=== PATIENT | male | born 1940 | race Caucasian/White ===

== ENCOUNTER → 2022-12-06 05:00 | Outpatient (REF) | payer MEDICARE, SELFPAY ==
[2022-12-06 09:21] LABS: Hematocrit 29.9 % (40-54); Hemoglobin 9.4 g/dL (13.0-16.5); Mean Corp Hgb Conc 31.4 g/dL (32-36); Mean Corpuscular Hgb 33.1 pg (27.0-32.0); Mean Corpuscular Volume 105.3 fL (80-94); Platelet Count 154 K/mm3 (150-450); RBC Distribution Width CV 15.1 % (11.6-14.6); RBC Distribution Width SD 57.4 fl (35.1-43.9); Red Blood Count 2.84 M/mm3 (4.6-6.2); White Blood Count 7.8 K/mm3 (4.4-11.0)
[2022-12-06 10:12] LABS: ALB/GLOB Ratio 1.2 RATIO (0.9-2.4); AST(SGOT) 9 U/L (15-37); Alanine Aminotransfer ALT/SGPT 23 U/L (16-61); Albumin, Serum 3.5 g/dL (3.2-5.0); Alkaline Phosphatase 96 U/L (45-117); Anion Gap 10 (5-15); BUN 67 mg/dL (7-18); BUN/Creat Ratio 8.7 RATIO (10-20); Calcium,Total 8.6 mg/dL (8.5-10.1); Chloride 96 mmol/L (98-107); Creatinine, Serum 7.67 mg/dL (0.70-1.30); EST Glomerular Filtration Rate 7 mL/min (>60); Est Glom Filt Rate - Afr Amer 9 mL/min (>60); Glucose 126 mg/dL (74-106); Potassium 4.9 mmol/L (3.5-5.1); Protein, Total 6.5 g/dL (6.4-8.2); Sodium Level 134 mmol/L (136-145)
== END ==
LOC: OLS.SW 05:00
PROVIDERS: Visit Provider Family Medicine
DX: E11.22 Type 2 diabetes mellitus with diabetic chronic kidney disease (principal); N18.6 End stage renal disease; D63.1 Anemia in chronic kidney disease
CPT/HCPCS: 36415; 80053; 85027

== ENCOUNTER → 2022-12-27 05:00 | Outpatient (REF) | payer MEDICARE, SELFPAY ==
[2022-12-27 09:44] LABS: Hematocrit 29.4 % (40-54); Hemoglobin 9.4 g/dL (13.0-16.5); Mean Corpuscular Hgb 33.6 pg (27.0-32.0); Mean Platelet Vol. 9.6 fl (6.2-12.0); Platelet Count 160 K/mm3 (150-450); RBC Distribution Width CV 14.6 % (11.6-14.6); RBC Distribution Width SD 56.4 fl (35.1-43.9); White Blood Count 7.7 K/mm3 (4.4-11.0)
[2022-12-27 10:15] LABS: ALB/GLOB Ratio 1.1 RATIO (0.9-2.4); AST(SGOT) 9 U/L (15-37); Alanine Aminotransfer ALT/SGPT 31 U/L (16-61); Albumin, Serum 3.5 g/dL (3.2-5.0); Alkaline Phosphatase 120 U/L (45-117); Anion Gap 13 (5-15); BUN 120 mg/dL (7-18); BUN/Creat Ratio 10.3 RATIO (10-20); Calcium,Total 9.3 mg/dL (8.5-10.1); Chloride 98 mmol/L (98-107); EST Glomerular Filtration Rate 4 mL/min (>60); Est Glom Filt Rate - Afr Amer 5 mL/min (>60); Globulin 3.1 g/dL (2.2-4.2); Glucose 129 mg/dL (74-106); Potassium 5.8 mmol/L (3.5-5.1); Protein, Total 6.6 g/dL (6.4-8.2); Sodium Level 135 mmol/L (136-145)
== END ==
LOC: OLS.SW 05:00
PROVIDERS: Visit Provider Family Medicine
DX: N18.6 End stage renal disease (principal)
CPT/HCPCS: 36415; 80053; 85027

== ENCOUNTER → 2023-01-17 | Outpatient (REF) | payer MEDICARE, SELFPAY ==
[2023-01-17 09:12] LABS: Hematocrit 30.6 % (40-54); Hemoglobin 10.1 g/dL (13.0-16.5); Mean Corpuscular Hgb 34.2 pg (27.0-32.0); Mean Corpuscular Volume 103.7 fL (80-94); Mean Platelet Vol. 9.9 fl (6.2-12.0); Platelet Count 130 K/mm3 (150-450); RBC Distribution Width CV 15.1 % (11.6-14.6); RBC Distribution Width SD 57.4 fl (35.1-43.9); Red Blood Count 2.95 M/mm3 (4.6-6.2)
[2023-01-17 10:00] LABS: ALB/GLOB Ratio 1.2 RATIO (0.9-2.4); AST(SGOT) 9 U/L (15-37); Alanine Aminotransfer ALT/SGPT 27 U/L (16-61); Albumin, Serum 3.5 g/dL (3.2-5.0); Alkaline Phosphatase 103 U/L (45-117); Anion Gap 10 (5-15); BUN 82 mg/dL (7-18); BUN/Creat Ratio 9.1 RATIO (10-20); Calcium,Total 9.1 mg/dL (8.5-10.1); Chloride 97 mmol/L (98-107); Creatinine, Serum 9.06 mg/dL (0.70-1.30); EST Glomerular Filtration Rate 6 mL/min (>60); Est Glom Filt Rate - Afr Amer 7 mL/min (>60); Glucose 88 mg/dL (74-106); Protein, Total 6.5 g/dL (6.4-8.2); Sodium Level 133 mmol/L (136-145)
== END ==
LOC: OLS.SW 07:35
PROVIDERS: Visit Provider Family Medicine
DX: E11.22 Type 2 diabetes mellitus with diabetic chronic kidney disease (principal); N18.6 End stage renal disease
CPT/HCPCS: 36415; 80053; 85027

== ENCOUNTER → 2023-02-07 | Outpatient (REF) | payer MEDICARE, SELFPAY ==
[2023-02-07 08:43] LABS: Hematocrit 33.3 % (40-54); Hemoglobin 10.9 g/dL (13.0-16.5); Mean Corp Hgb Conc 32.7 g/dL (32-36); Mean Corpuscular Hgb 33.7 pg (27.0-32.0); Mean Corpuscular Volume 103.1 fL (80-94); Mean Platelet Vol. 9.5 fl (6.2-12.0); Platelet Count 140 K/mm3 (150-450); RBC Distribution Width CV 13.5 % (11.6-14.6); RBC Distribution Width SD 52.1 fl (35.1-43.9); Red Blood Count 3.23 M/mm3 (4.6-6.2); White Blood Count 8.2 K/mm3 (4.4-11.0)
[2023-02-07 09:09] LABS: ALB/GLOB Ratio 1.1 RATIO (0.9-2.4); AST(SGOT) 11 U/L (15-37); Alanine Aminotransfer ALT/SGPT 29 U/L (16-61); Albumin, Serum 3.6 g/dL (3.2-5.0); Alkaline Phosphatase 109 U/L (45-117); Anion Gap 8 (5-15); BUN 65 mg/dL (7-18); BUN/Creat Ratio 8.1 RATIO (10-20); Calcium,Total 10.1 mg/dL (8.5-10.1); Chloride 96 mmol/L (98-107); EST Glomerular Filtration Rate 7 mL/min (>60); Est Glom Filt Rate - Afr Amer 8 mL/min (>60); Globulin 3.2 g/dL (2.2-4.2); Glucose 80 mg/dL (74-106); Potassium 4.2 mmol/L (3.5-5.1); Protein, Total 6.8 g/dL (6.4-8.2); Sodium Level 135 mmol/L (136-145)
== END ==
LOC: OLS.SW 05:00
PROVIDERS: Visit Provider Family Medicine
DX: Z79.899 Other long term (current) drug therapy (principal)
CPT/HCPCS: 36415; 80053; 85027

== ENCOUNTER → 2023-02-14 | Outpatient (REF) | payer MEDICARE, SELFPAY ==
[2023-02-14 08:44] LABS: Hemoglobin A1c 4.9 % (3.8-5.6)
== END ==
LOC: OLS.SW 05:00
PROVIDERS: Visit Provider Family Medicine
DX: E11.9 Type 2 diabetes mellitus without complications (principal)
CPT/HCPCS: 36415; 83036

== ENCOUNTER → 2023-03-01 | Outpatient (REF) | payer MEDICARE, SELFPAY ==
[2023-03-01 10:42] LABS: Hematocrit 33.6 % (40-54); Hemoglobin 10.8 g/dL (13.0-16.5); Mean Corp Hgb Conc 32.1 g/dL (32-36); Mean Corpuscular Hgb 33.4 pg (27.0-32.0); Mean Platelet Vol. 9.6 fl (6.2-12.0); Platelet Count 133 K/mm3 (150-450); RBC Distribution Width CV 13.9 % (11.6-14.6); RBC Distribution Width SD 53.1 fl (35.1-43.9); Red Blood Count 3.23 M/mm3 (4.6-6.2); White Blood Count 7.1 K/mm3 (4.4-11.0)
[2023-03-01 10:59] LABS: ALB/GLOB Ratio 1.3 RATIO (0.9-2.4); AST(SGOT) 10 U/L (15-37); Alanine Aminotransfer ALT/SGPT 23 U/L (16-61); Albumin, Serum 3.6 g/dL (3.2-5.0); Alkaline Phosphatase 96 U/L (45-117); Anion Gap 11 (5-15); BUN 54 mg/dL (7-18); BUN/Creat Ratio 7.6 RATIO (10-20); Calcium,Total 9.3 mg/dL (8.5-10.1); Chloride 97 mmol/L (98-107); Creatinine, Serum 7.12 mg/dL (0.70-1.30); EST Glomerular Filtration Rate 8 mL/min (>60); Est Glom Filt Rate - Afr Amer 10 mL/min (>60); Globulin 2.8 g/dL (2.2-4.2); Glucose 79 mg/dL (74-106); Potassium 4.4 mmol/L (3.5-5.1); Protein, Total 6.4 g/dL (6.4-8.2); Sodium Level 136 mmol/L (136-145)
== END ==
LOC: OLS.SW 05:00
PROVIDERS: Visit Provider Family Medicine
DX: E11.9 Type 2 diabetes mellitus without complications (principal); Z99.2 Dependence on renal dialysis
CPT/HCPCS: 36415; 80053; 85027

== ENCOUNTER → 2023-03-01 | Outpatient (CLI) | payer MEDICARE, SELFPAY ==
--- NOTE | 2023-03-01 13:36 | ART_ITS ---
Reason For Study: PVD Procedure A bilateral lower extremity continuous wave Doppler with analog waveform analysis and ankle brachial indexes. Left Segmental Pressures Left brachial= 131mmHg. Left posterior tibial artery = 140mmHg. Left dorsalis pedis artery = >254mmHg. Left digit = 70 mmHg. The left dorsalis pedis waveforms are monophasic. The left posterior tibial artery waveforms are biphasic. Right Segmental Pressures Right brachial= 128mmHg. Right calf = 131mmHg. Right posterior tibial artery = 72mmHg. Right dorsalis pedis artery = 99mmHg. Right digit = 38 mmHg. The right dorsalis pedis waveforms are monophasic. The right posterior tibial artery waveforms are monophasic. Indices The right ankle brachial index by the dorsalis pedis is 0.76. The right ankle brachial index by the posterior tibial artery is 0.55. The right digital-brachial index is 0.29. The left ankle brachial index by the dorsalis pedis is NC. The left ankle brachial index by the posterior tibial artery is 1.07. The left digital-brachial index is 0.53. VL/Lower Ext Art Exam w/o Exercis Interpretation Summary Right MERRICK 0.76, moderate arterial insufficiency. Doppler/PVR waveforms and segm ental pressures reveal infrapopliteal disease Left MERRICK 1.07, normal. Doppler/PVR waveforms of the left leg normal at rest. TB I diminished, pedal/digit disease vs spasm Ordering Physician: Pete Cardozo Referring Physician: Gurpreet Prajapati Performed By: Mary Ulrich RVT
== END | disposition home or self-care (01) ==
LOC: CVS 13:34
PROVIDERS: PCP Family Medicine; Referring Provider Podiatrist; Visit Provider Podiatrist
DX: I73.9 Peripheral vascular disease, unspecified (principal)
CPT/HCPCS: 93923; 93924

== ENCOUNTER → 2023-03-02 | Outpatient (REF) | payer MEDICARE, SELFPAY ==
[2023-03-02 09:00] LABS: Hematocrit 32.1 % (40-54); Hemoglobin 10.5 g/dL (13.0-16.5); Mean Corp Hgb Conc 32.7 g/dL (32-36); Mean Corpuscular Hgb 34.1 pg (27.0-32.0); Mean Corpuscular Volume 104.2 fL (80-94); Mean Platelet Vol. 9.5 fl (6.2-12.0); Platelet Count 132 K/mm3 (150-450); RBC Distribution Width SD 52.8 fl (35.1-43.9); Red Blood Count 3.08 M/mm3 (4.6-6.2); White Blood Count 6.9 K/mm3 (4.4-11.0)
[2023-03-02 09:32] LABS: ALB/GLOB Ratio 1.2 RATIO (0.9-2.4); AST(SGOT) 8 U/L (15-37); Alanine Aminotransfer ALT/SGPT 24 U/L (16-61); Albumin, Serum 3.6 g/dL (3.2-5.0); Alkaline Phosphatase 103 U/L (45-117); Anion Gap 9 (5-15); BUN 76 mg/dL (7-18); BUN/Creat Ratio 8.9 RATIO (10-20); Calcium,Total 9.3 mg/dL (8.5-10.1); Chloride 98 mmol/L (98-107); EST Glomerular Filtration Rate 6 mL/min (>60); Est Glom Filt Rate - Afr Amer 8 mL/min (>60); Glucose 78 mg/dL (74-106); Potassium 4.5 mmol/L (3.5-5.1); Protein, Total 6.6 g/dL (6.4-8.2); Sodium Level 135 mmol/L (136-145)
== END ==
LOC: OLS.SW 05:00
PROVIDERS: PCP Family Medicine; Visit Provider Family Medicine
DX: I10 Essential (primary) hypertension (principal)
CPT/HCPCS: 36415; 80053; 85027

== ENCOUNTER → 2023-03-21 | Outpatient (REF) | payer MEDICARE, SELFPAY ==
[2023-03-21 09:07] LABS: Hematocrit 29.4 % (40-54); Hemoglobin 9.5 g/dL (13.0-16.5); Mean Corp Hgb Conc 32.3 g/dL (32-36); Mean Corpuscular Hgb 34.1 pg (27.0-32.0); Mean Corpuscular Volume 105.4 fL (80-94); Mean Platelet Vol. 10.2 fl (6.2-12.0); Platelet Count 138 K/mm3 (150-450); RBC Distribution Width SD 53.9 fl (35.1-43.9); Red Blood Count 2.79 M/mm3 (4.6-6.2); White Blood Count 7.4 K/mm3 (4.4-11.0)
[2023-03-21 09:59] LABS: ALB/GLOB Ratio 1.1 RATIO (0.9-2.4); AST(SGOT) 6 U/L (15-37); Alanine Aminotransfer ALT/SGPT 21 U/L (16-61); Albumin, Serum 3.2 g/dL (3.2-5.0); Alkaline Phosphatase 100 U/L (45-117); Anion Gap 8 (5-15); BUN 64 mg/dL (7-18); BUN/Creat Ratio 8.2 RATIO (10-20); Calcium,Total 9.2 mg/dL (8.5-10.1); Chloride 97 mmol/L (98-107); Creatinine, Serum 7.82 mg/dL (0.70-1.30); EST Glomerular Filtration Rate 7 mL/min (>60); Est Glom Filt Rate - Afr Amer 9 mL/min (>60); Glucose 168 mg/dL (74-106); Potassium 4.4 mmol/L (3.5-5.1); Protein, Total 6.2 g/dL (6.4-8.2); Sodium Level 134 mmol/L (136-145)
== END ==
LOC: OLS.SW 05:00
PROVIDERS: PCP Family Medicine; Visit Provider Family Medicine
DX: D64.9 Anemia, unspecified (principal); J44.9 Chronic obstructive pulmonary disease, unspecified; E78.5 Hyperlipidemia, unspecified; E11.22 Type 2 diabetes mellitus with diabetic chronic kidney disease; N18.6 End stage renal disease; I25.10 Atherosclerotic heart disease of native coronary artery without angina pectoris
CPT/HCPCS: 36415; 80053; 85027

== ENCOUNTER → 2023-04-11 04:00 | Outpatient (REF) | payer MEDICARE, SELFPAY ==
[2023-04-11 08:51] LABS: Hematocrit 32.5 % (40-54); Hemoglobin 10.3 g/dL (13.0-16.5); Mean Corp Hgb Conc 31.7 g/dL (32-36); Mean Corpuscular Hgb 33.9 pg (27.0-32.0); Mean Corpuscular Volume 106.9 fL (80-94); Mean Platelet Vol. 9.7 fl (6.2-12.0); Platelet Count 140 K/mm3 (150-450); RBC Distribution Width SD 54.6 fl (35.1-43.9); Red Blood Count 3.04 M/mm3 (4.6-6.2); White Blood Count 6.3 K/mm3 (4.4-11.0)
[2023-04-11 09:22] LABS: ALB/GLOB Ratio 1.1 RATIO (0.9-2.4); AST(SGOT) 9 U/L (15-37); Alanine Aminotransfer ALT/SGPT 10 U/L (16-61); Albumin, Serum 3.5 g/dL (3.2-5.0); Alkaline Phosphatase 95 U/L (45-117); Anion Gap 11 (5-15); BUN 94 mg/dL (7-18); BUN/Creat Ratio 7.5 RATIO (10-20); Calcium,Total 9.2 mg/dL (8.5-10.1); Chloride 100 mmol/L (98-107); EST Glomerular Filtration Rate 4 mL/min (>60); Est Glom Filt Rate - Afr Amer 5 mL/min (>60); Globulin 3.1 g/dL (2.2-4.2); Glucose 65 mg/dL (74-106); Potassium 4.9 mmol/L (3.5-5.1); Protein, Total 6.6 g/dL (6.4-8.2); Sodium Level 136 mmol/L (136-145)
== END ==
LOC: OLS.SW 04:00
PROVIDERS: PCP Family Medicine; Visit Provider Family Medicine
DX: E11.22 Type 2 diabetes mellitus with diabetic chronic kidney disease; N18.6 End stage renal disease
CPT/HCPCS: 36415; 80053; 85027

== ENCOUNTER → 2023-05-02 | Outpatient (REF) | payer MEDICARE, SELFPAY ==
[2023-05-02 09:20] LABS: Hematocrit 33.1 % (40-54); Hemoglobin 10.8 g/dL (13.0-16.5); Mean Corp Hgb Conc 32.6 g/dL (32-36); Mean Corpuscular Hgb 35.2 pg (27.0-32.0); Mean Corpuscular Volume 107.8 fL (80-94); Mean Platelet Vol. 9.6 fl (6.2-12.0); Platelet Count 130 K/mm3 (150-450); RBC Distribution Width CV 15.9 % (11.6-14.6); RBC Distribution Width SD 61.9 fl (35.1-43.9); Red Blood Count 3.07 M/mm3 (4.6-6.2); White Blood Count 6.7 K/mm3 (4.4-11.0)
[2023-05-02 09:40] LABS: ALB/GLOB Ratio 1.2 RATIO (0.9-2.4); AST(SGOT) 9 U/L (15-37); Alanine Aminotransfer ALT/SGPT 21 U/L (16-61); Albumin, Serum 3.5 g/dL (3.2-5.0); Alkaline Phosphatase 88 U/L (45-117); Anion Gap 11 (5-15); BUN 68 mg/dL (7-18); BUN/Creat Ratio 8.1 RATIO (10-20); Calcium,Total 9.2 mg/dL (8.5-10.1); Chloride 98 mmol/L (98-107); Creatinine, Serum 8.44 mg/dL (0.70-1.30); EST Glomerular Filtration Rate 7 mL/min (>60); Est Glom Filt Rate - Afr Amer 8 mL/min (>60); Globulin 2.8 g/dL (2.2-4.2); Glucose 182 mg/dL (74-106); Potassium 4.2 mmol/L (3.5-5.1); Protein, Total 6.3 g/dL (6.4-8.2); Sodium Level 134 mmol/L (136-145)
== END ==
LOC: OLS.SW 06:25
PROVIDERS: PCP Family Medicine; Visit Provider Family Medicine
DX: J44.9 Chronic obstructive pulmonary disease, unspecified (principal); E11.9 Type 2 diabetes mellitus without complications
CPT/HCPCS: 36415; 80053; 85027

== ENCOUNTER → 2023-05-16 | Outpatient (REF) | payer MEDICARE, SELFPAY ==
[2023-05-16 09:12] LABS: Hemoglobin A1c 4.8 % (3.8-5.6)
== END ==
LOC: OLS.SW 05:00
PROVIDERS: PCP Family Medicine; Visit Provider Family Medicine
DX: E11.9 Type 2 diabetes mellitus without complications (principal)
CPT/HCPCS: 36415; 83036

== ENCOUNTER → 2023-05-23 | Outpatient (REF) | payer MEDICARE, SELFPAY ==
[2023-05-23 10:05] LABS: Hematocrit 32.4 % (40-54); Hemoglobin 10.7 g/dL (13.0-16.5); Mean Corpuscular Hgb 34.7 pg (27.0-32.0); Mean Corpuscular Volume 105.2 fL (80-94); Mean Platelet Vol. 10.2 fl (6.2-12.0); Platelet Count 142 K/mm3 (150-450); RBC Distribution Width CV 13.6 % (11.6-14.6); RBC Distribution Width SD 52.7 fl (35.1-43.9); Red Blood Count 3.08 M/mm3 (4.6-6.2); White Blood Count 7.2 K/mm3 (4.4-11.0)
[2023-05-23 10:56] LABS: ALB/GLOB Ratio 1.2 RATIO (0.9-2.4); AST(SGOT) 12 U/L (15-37); Alanine Aminotransfer ALT/SGPT 23 U/L (16-61); Albumin, Serum 3.6 g/dL (3.2-5.0); Alkaline Phosphatase 89 U/L (45-117); Anion Gap 6 (5-15); BUN 73 mg/dL (7-18); BUN/Creat Ratio 8.1 RATIO (10-20); Calcium,Total 9.3 mg/dL (8.5-10.1); Chloride 96 mmol/L (98-107); EST Glomerular Filtration Rate 6 mL/min (>60); Est Glom Filt Rate - Afr Amer 7 mL/min (>60); Glucose 70 mg/dL (74-106); Potassium 4.4 mmol/L (3.5-5.1); Protein, Total 6.6 g/dL (6.4-8.2); Sodium Level 131 mmol/L (136-145)
== END ==
LOC: OLS.SW 04:00
PROVIDERS: PCP Family Medicine; Referring Provider Family Medicine; Visit Provider Family Medicine
DX: D64.9 Anemia, unspecified (principal); E11.9 Type 2 diabetes mellitus without complications
CPT/HCPCS: 36415; 80053; 85027

== ENCOUNTER 2023-05-31 08:24 | Day surgery (SDC) | payer MEDICARE, SELFPAY ==
[2023-05-30 07:10] VITALS: BMI 26.0
--- NOTE | 2023-05-31 13:26 | PCM.OPRPT ---
Report of Operation Date of Procedure: 05/31/23 Pre-Operative Diagnosis: atherosclerosis with rest pain, right lower extremity Post-Operative Diagnosis: same Surgery/Procedure Performed:: aortogram, right lower extremity runoff Surgeon: Manfred Johnson Type of Anesthesia: Local and Sedation,Conscious Estimated Blood Loss (mL): 2 Description of Procedure: HPI: Patient is an 82-year-old male with symptoms consistent with ischemic nocturnal rest pain and abnormal noninvasive vascular studies. He does have end-stage renal disease and on dialysis but he does continue to make urine so he is taken for angiography in efforts to reduce contrast exposure and further identify location and degree of disease. By noninvasive studies is suggested is mostly infrapopliteal disease. He is taken now for elective angiogram. Description of procedure: Upon obtaining informed consent verification correct patient procedure site patient taken the Senior Software Architect was positioned prepped and draped in you sterile fashion. Time was performed consultation administered Versed and fentanyl. Skin overlying left common femoral artery was anesthetized 1% lidocaine the vessel accessed under ultrasound guidance with micropuncture needle wire. This extended from a puncture sheath through which injection iliofemoral angiogram was performed revealing satisfactory positioning no extravasation or dissection. Through the micropuncture sheath a Bentson wire advanced into the abdominal aorta and the micropuncture was exchanged out for a short 6 Gibraltarian sheath. Through this an Omni Flush catheter was advanced into the abdominal aorta and the digital traction open pelvic angiograms performed. This revealed remarkably slow contrast transit through aorta and iliac vessels that were of normal caliber with no significant atherosclerosis or stenosis. This also revealed highly tortuous external leg arteries distally bilaterally with a 360 degree loop of the right external iliac artery. For this anatomy was potentially prohibitive for contralateral access intervention however we did opt to obtain imaging to at least determine degree of disease. Using the Omni Flush catheter and Bentson wire we navigated to the contralateral iliac system. The Omni Flush catheter is then exchanged out for a glide catheter which was advanced over the wire and positioned in the distal external iliac artery. From this position sequential right lower extremity subtraction angiography was performed. Given the remarkably slow contrast transit it was difficult to obtain adequate imaging particularly further distal in the lower leg so using a Glidewire and the glide catheter we navigated into the superficial femoral artery and advance her catheter in the mid SFA. From this position further imaging of the infrapopliteal vessels was obtained. We had significant difficulty advancing given our glide wire and catheter due to the tortuosity in the iliac system. With this in addition to the distribution of disease mainly distal tibial without good reconstitution is felt that no endovascular treatment will be attempted today. Also in addition to his slow contrast transit and overall what appears to be poor cardiac pump function is felt that any endovascular mention may be high risk for acute failure and that potentially the situation could be worsened by efforts. The wire and catheter then withdrawn and a 6 Gibralt[place] minx deployed followed attempt to manage pressure with satisfactory stasis noted. The patient was taken to recovery for bedrest prior to discharge to the SNF facility. Radiographic rotation: Abdominal aorta normal caliber with no significant atherosclerosis or stenosis. Left common, external iliac, and internal iliac arteries widely patent with no significant atherosclerosis or stenosis. Significant tortuosity of the left distal external leg artery. Left common femoral artery patent with mild atherosclerosis. Right common, external, internal artery patent with no skin atherosclerosis or stenosis. Significant tortuosity external iliac artery. Right common femoral, profunda, superficial femoral arteries widely patent with no significant atherosclerosis or stenosis. Right popliteal artery widely patent atherosclerosis or stenosis. Right anterior tibial artery patent highly diseased for approximately 3 cm and abrupt occlusion with no reconstitution. Tibioperoneal trunk artery patent with no significant atherosclerosis or stenosis. Posterior tibial artery patent highly diseased for approximately 3 cm and abrupt occlusion with no reconstitution. Peroneal artery with 50% stenosis of the ostia followed by relatively normal caliber vessel for the distal two thirds of the lower leg. At the distal third of the leg the vessel appeared to occlude with a dense collateral network with no reconstitution of peroneal artery beyond. There is not a good feeling in the foot however this was difficult to fully assess if it was due to anatomic obstruction or just contrast timing given the poor contrast transit throughout the arterial system.
== END 2023-05-31 16:20 | disposition home or self-care (01) ==
LOC: CLSP 08:26
PROVIDERS: PCP Family Medicine; Referring Provider Surgery Trauma Surgery; Visit Provider Surgery Trauma Surgery
DX: I70.221 Atherosclerosis of native arteries of extremities with rest pain, right leg (principal); Z99.2 Dependence on renal dialysis; J44.9 Chronic obstructive pulmonary disease, unspecified; N18.6 End stage renal disease; I25.10 Atherosclerotic heart disease of native coronary artery without angina pectoris; E78.5 Hyperlipidemia, unspecified; G47.33 Obstructive sleep apnea (adult) (pediatric); G62.9 Polyneuropathy, unspecified
CPT/HCPCS: 36200; 36245; 75625; 75710; 76937; 99152; 99153; C1760; C1769; C1894; J7040; Q9967

== ENCOUNTER → 2023-06-02 | Outpatient (REF) | payer MEDICARE, SELFPAY ==
[2023-06-02 17:10] LABS: Hemoglobin 11.9 g/dL (13.0-16.5); Mean Corpuscular Hgb 34.6 pg (27.0-32.0); Mean Corpuscular Volume 101.7 fL (80-94); Mean Platelet Vol. 10.4 fl (6.2-12.0); Platelet Count 118 K/mm3 (150-450); RBC Distribution Width CV 13.6 % (11.6-14.6); RBC Distribution Width SD 51.4 fl (35.1-43.9); Red Blood Count 3.44 M/mm3 (4.6-6.2); White Blood Count 10.1 K/mm3 (4.4-11.0)
[2023-06-02 17:34] LABS: ALB/GLOB Ratio 0.9 RATIO (0.9-2.4); AST(SGOT) 26 U/L (15-37); Alanine Aminotransfer ALT/SGPT 33 U/L (16-61); Albumin, Serum 3.3 g/dL (3.2-5.0); Alkaline Phosphatase 90 U/L (45-117); Anion Gap 9 (5-15); BUN 44 mg/dL (7-18); BUN/Creat Ratio 8.5 RATIO (10-20); Calcium,Total 9.4 mg/dL (8.5-10.1); Chloride 93 mmol/L (98-107); Creatinine, Serum 5.15 mg/dL (0.70-1.30); EST Glomerular Filtration Rate 12 mL/min (>60); Est Glom Filt Rate - Afr Amer 14 mL/min (>60); Globulin 3.6 g/dL (2.2-4.2); Glucose 130 mg/dL (74-106); Potassium 3.6 mmol/L (3.5-5.1); Protein, Total 6.9 g/dL (6.4-8.2); Sodium Level 133 mmol/L (136-145)
== END ==
LOC: OLS.SW 15:50
PROVIDERS: PCP Family Medicine; Visit Provider Family Medicine
DX: D64.9 Anemia, unspecified (principal); N18.6 End stage renal disease
CPT/HCPCS: 80053; 85027

== ENCOUNTER → 2023-06-05 | Outpatient (REF) | payer MEDICARE, SELFPAY ==
[2023-06-05 08:34] LABS: Lactic Acid 1.6 mmol/L (0.4-1.9)
== END ==
LOC: OLS.SW 05:00
PROVIDERS: PCP Family Medicine; Visit Provider Family Medicine
DX: D64.9 Anemia, unspecified (principal); N18.6 End stage renal disease
CPT/HCPCS: 36415; 82140; 83605

== ENCOUNTER → 2023-06-13 | Outpatient (REF) | payer MEDICARE, SELFPAY ==
[2023-06-13 08:31] LABS: Hematocrit 31.3 % (40-54); Hemoglobin 10.4 g/dL (13.0-16.5); Mean Corp Hgb Conc 33.2 g/dL (32-36); Mean Corpuscular Hgb 34.3 pg (27.0-32.0); Mean Corpuscular Volume 103.3 fL (80-94); Mean Platelet Vol. 9.3 fl (6.2-12.0); Platelet Count 158 K/mm3 (150-450); RBC Distribution Width CV 14.2 % (11.6-14.6); RBC Distribution Width SD 52.1 fl (35.1-43.9); Red Blood Count 3.03 M/mm3 (4.6-6.2); White Blood Count 8.3 K/mm3 (4.4-11.0)
[2023-06-13 10:47] LABS: ALB/GLOB Ratio 0.9 RATIO (0.9-2.4); AST(SGOT) 23 U/L (15-37); Alanine Aminotransfer ALT/SGPT 38 U/L (16-61); Albumin, Serum 3.1 g/dL (3.2-5.0); Alkaline Phosphatase 102 U/L (45-117); Anion Gap 10 (5-15); BUN 58 mg/dL (7-18); BUN/Creat Ratio 7.6 RATIO (10-20); Calcium,Total 9.2 mg/dL (8.5-10.1); Chloride 95 mmol/L (98-107); Creatinine, Serum 7.68 mg/dL (0.70-1.30); EST Glomerular Filtration Rate 7 mL/min (>60); Est Glom Filt Rate - Afr Amer 9 mL/min (>60); Globulin 3.4 g/dL (2.2-4.2); Glucose 113 mg/dL (74-106); Potassium 3.9 mmol/L (3.5-5.1); Protein, Total 6.5 g/dL (6.4-8.2); Sodium Level 132 mmol/L (136-145)
== END ==
LOC: OLS.SW 05:00
PROVIDERS: PCP Family Medicine; Visit Provider Family Medicine
DX: D64.9 Anemia, unspecified (principal); E11.9 Type 2 diabetes mellitus without complications
CPT/HCPCS: 80053; 85027

== ENCOUNTER 2023-06-17 14:07 | Inpatient (IN) | payer MEDICARE, SELFPAY ==
[2023-06-17] VITALS (17 sets, daily range): BP systolic 87–170; BP diastolic 41–73; PULSE 58–88; RESP 16–30; TEMP 36.8–39.6; O2SAT 92–100; BMI 26.6; BMI 25.6
--- NOTE | 2023-06-17 14:25 | EKG12_ITS ---
Test Reason : GENERAL Blood Pressure : / mmHG Vent. Rate : 084 BPM Atrial Rate : 000 BPM P-R Int : 000 ms QRS Dur : 124 ms QT Int : 404 ms P-R-T Axes : 000 182 -02 degrees QTc Int : 477 ms Atrial fibrillation Right bundle branch block Abnormal ECG Confirmed by Mukund Dawson ([id number]), script editor ZELALEM VELEZ ([id number]) on 06/20/2023 7:42:35 AM Referred By: Confirmed By:Mukund Dawson
--- NOTE | 2023-06-17 14:35 | EDS_ITS ---
HPI <Thania Kelsey RN - Last Filed: 06/17/23 15:47> History of Present Illness Chief Complaint: Alt LOC Informant: SNF Onset/Context/Timing Onset: - (Unknown) Current Severity: Moderate Maximum Severity: Moderate Narrative Narrative: Patient presents from [facility] for concerns of altered level of consciousness. Patient with history significant for atherosclerosis end-stage renal disease on dialysis, diabetes, encephalopathy, COPD, and hypertension. Per report from nursing facility, patient had aortogram on . Nurses aide reports patient has not been back to his baseline of ANO x 3 since procedure. However, nurse reports this is a new problem. Patient is febrile. Patient has DNR CCA. Prior similar symptoms: No Recent Illness/Hospitalization: No PFSH <Thania Kelsey RN - Last Filed: 06/17/23 15:47> [facility] Medical History Atherosclerotic heart disease of [place] coronary artery without angina pectoris COPD (chronic obstructive pulmonary disease) Encephalopathy Hepatitis A Hepatitis B Hiatal hernia with GERD without esophagitis Hyperlipidemia Muscle weakness TWYLA (obstructive sleep apnea) Rhabdomyolysis Secondary hyperparathyroidism Home Medications apixaban 2.5 mg tablet (Eliquis) 2.5 mg PO BID 02/23/23 [History Last Taken 05/30/23] atorvastatin 40 mg tablet 40 mg PO QHS 02/23/23 [History Last Taken Unknown] bumetanide 2 mg tablet 2 mg PO DAILY 02/23/23 [History Last Taken Unknown] calcium acetate(phosphat bind) 667 mg capsule 1,334 mg PO TID 02/23/23 [History Last Taken Unknown] glipizide 2.5 mg tablet 2.5 mg PO BID 02/23/23 [History Last Taken 05/30/23] isosorbide mononitrate 30 mg tablet,extended release 24 hr 30 mg PO DAILY 02/23/23 [History Last Taken Unknown] vitamin B complex-vitamin C-folic acid 0.8 mg tablet (Julieta-Luis) 1 tab PO DAILY 02/23/23 [History Last Taken Unknown] calcitriol 0.5 mcg capsule 0.5 mcg PO MOWEFR 04/20/23 [History Last Taken Unknown] acetaminophen 325 mg capsule 650 mg PO Q4H PRN fever 06/17/23 [History Last Taken Unknown] acetaminophen 650 mg rectal suppository 650 mg WV Q4H PRN fever 06/17/23 [History Last Taken Unknown] aluminum-mag hydroxide-simethicone 200 mg-200 mg-20 mg/5 mL oral susp (Antacid M) 30 ml PO Q4H PRN GI DISTRESS 06/17/23 [History Last Taken Unknown] bisacodyl 10 mg rectal suppository (Dulcolax (bisacodyl)) 10 mg WV DAILY PRN constipation 06/17/23 [History Last Taken Unknown] dextrose 40 % oral gel (Glucose Gel) 10 g PO Q15M PRN hypoglycemia 06/17/23 [History Last Taken Unknown] diclofenac sodium 1 % topical gel 2 g topical QHS PRN pain 06/17/23 [History Last Taken Unknown] gabapentin 100 mg capsule 100 mg PO BID NERVE PAIN 06/17/23 [History Last Taken Unknown] glucagon HCl 1 mg solution for injection (Glucagon (HCl) Emergency Kit) 1 mg IM PRN PRN hypoglycemia 06/17/23 [History Last Taken Unknown] guaifenesin 100 mg/5 mL oral liquid (Adult Tussin Chest Congestion) 200 mg PO Q4H PRN COUGH/CONGESTION 06/17/23 [History Last Taken Unknown] nystatin 100,000 unit/gram topical cream 1 applic topical Q8H PRN GROIN IRRITATION 06/17/23 [History Last Taken Unknown] ondansetron HCl 4 mg tablet 4 mg PO Q8H PRN nausea and vomiting 06/17/23 [History Last Taken Unknown] sodium phosphates 19 gram-7 gram/118 mL enema (Enema) 118 ml WV DAILY PRN constipation 06/17/23 [History Last Taken Unknown] tramadol 50 mg tablet 50 mg PO Q12H PRN TOE PAIN 06/17/23 [History Last Taken Unknown] Allergy/AdvReac Type Severity Reaction Status Date / Time No Known Allergies Allergy Verified 04/20/23 15:24 Family History no significant family his Social History housing: long-term Smoking Status: Never smoker ROS <Thania Kelsey RN - Last Filed: 06/17/23 15:47> ROS ED ROS Narrative Patient does open eyes to command. Does not follow commands or answer questions appropriately. Review of Systems ROS Unobtainable: due to mental status Constitutional Constitutional ED: Reports chills, fever(s) and sweats Respiratory/Chest Respiratory/Chest: Reports cough Integumentary Denies abscess, Abrasions or rash EXAM <Thania Kelsey RN - Last Filed: 06/17/23 15:47> Physical Exam Narrative Exam Narrative: Patient resting in bed with eyes closed. Opens eyes to name. Will not answer questions. Does not follow commands. Const Vital Signs: 06/17/23 14:09 06/17/23 14:18 06/17/23 14:25 Temperature 103.2 F H Temperature Source Axillary Pulse Rate 88 Respiratory Rate 22 H Blood Pressure 170/55 H Blood Pressure Mean 93 Pulse Ox 92 100 100 Oxygen Delivery Method Nasal Cannula Nasal Cannula Nasal Cannula Oxygen Flow Rate (L/min) 3 3 3 06/17/23 15:43 06/17/23 15:44 Temperature 102.7 F H Temperature Source Core Pulse Rate 61 Respiratory Rate 24 H Blood Pressure 106/45 L Blood Pressure Mean 65 Pulse Ox 97 Oxygen Delivery Method Nasal Cannula Oxygen Flow Rate (L/min) 5 Positive well nourished HEENT Reports dry mucous membranes Mouth ED: Yes dry mucous membranes Mouth: dry mucous membranes Eyes PERRL Neck no lymphadenopathy, supple and no JVD Chest Wall inspection of chest normal and palpation of chest normal Chest Narrative: Dual-lumen dialysis catheter to right upper chest with dressing dry and intact. No drainage noted. Resp normal respiratory effort and clear to auscultation bilaterally Auscultation: Negative for rales, rhonchi or wheezes Cardio regular rate, S1 normal heart sound and S2 normal heart sound GI normal to inspection, nondistended, normoactive bowel sounds and non-tender Auscultation: normoactive bowel sounds Palpation: soft Extremity normal to inspection Extremity Narrative: AV fistula to left upper arm with positive bruit and thrill. General Extremety ED: Negative for edema or tenderness General Extremity: Negative for edema Neuro oriented x3 Sensorium / Orientation: alert Motor Exam: strength 5/5 throughout Skin no rashes or lesions noted, no wounds and skin turgor normal <Dr. Khanh Frazier MD - Last Filed: 06/17/23 16:00> Physical Exam Const Vital Signs: 06/17/23 14:09 06/17/23 14:18 06/17/23 14:25 Temperature 103.2 F H Temperature Source Axillary Pulse Rate 88 Respiratory Rate 22 H Blood Pressure 170/55 H Blood Pressure Mean 93 Pulse Ox 92 100 100 Oxygen Delivery Method Nasal Cannula Nasal Cannula Nasal Cannula Oxygen Flow Rate (L/min) 3 3 3 06/17/23 15:43 06/17/23 15:44 Temperature 102.7 F H Temperature Source Core Pulse Rate 61 Respiratory Rate 24 H Blood Pressure 106/45 L Blood Pressure Mean 65 Pulse Ox 97 Oxygen Delivery Method Nasal Cannula Oxygen Flow Rate (L/min) 5 MDM <Thania Kelsey RN - Last Filed: 06/17/23 15:47> [facility] Narrative Medical decision making narrative: Patient placed on candy maker helper. IV line initiated. Labwork obtained to evaluate for leukocytosis, anemia, and electrolyte derangement. Chest x-ray obtained to evaluate for acute lung pathology, cardiac size, or mediastinal abnormality. Urinalysis obtained to evaluate for infection/hematuria. Blood cultures obtained. I have personally performed a face to face assessment of the patient and have reviewed the NANCY Note. I performed a substantive portion of the visit including all aspects of the following. My abreu findings include: History is 82-year-old male extensive past medical history presents from [facility] with decreased mental status and a fever of 103.2. Patient is unable to give any history. Does not follow commands and only barely responds. He is DNR Comfort Care arrest. Exam is [vital signs stable with temperature 103.2. Pulse ox 92% on 3 L. Hypoxia without the oxygen. HEENT exam eyes closed. Dry mucous membranes. Neck nontender no lymphadenopathy. Lungs clear to auscultation bilaterally. Heart rate about 90. No murmur. Chest wall and ribs nontender. Abdomen soft nondistended normal bowel sounds no peritoneal signs. Moving all 4 extremities. Nontender. No rashes. Back nontender. Neurologically he is awake. His eyes are closed. He does not answer any questions. He does not follow commands.] Medical Decision Making [elderly male from a long-term DNR Comfort Care arrest with a fever. Undergo a septic workup. Currently I will hold off on IV fluids till we see some more of his labs. He is dialysis patient has a dialysis catheter in his right chest that looks clean.] Other additions or changes: [None] Lab Data Labs: Laboratory Results - last 24 hr 06/17/23 06/17/23 14:22 14:53 WBC 16.3 H RBC 3.23 L Hgb 10.8 L Hct 34.0 L MCV 105.3 H MCH 33.4 H MCHC 31.8 L RDW Std Deviation 55.7 H RDW Coeff of Chloe 14.6 Plt Count 136 L MPV 9.2 Immature Gran % (Auto) 1.200 H Neut % (Auto) 90.0 H Lymph % (Auto) 2.8 L [place] % (Auto) 5.7 Eos % (Auto) 0.0 Baso % (Auto) 0.3 Absolute Neuts (auto) 14.6 H Absolute Lymphs (auto) 0.46 L Nucleated RBC % 0 PT 15.1 H INR 1.2 APTT 33.1 Sodium 134 L Potassium 5.0 Chloride 97 L Carbon Dioxide 30.0 Anion Gap 7 BUN 52 H Creatinine 6.98 H Estim Creat Clear Calc 8.96 Est GFR (MDRD) Af Amer 10 L Est GFR (MDRD) Non-Af 8 L BUN/Creatinine Ratio 7.4 L Glucose 77 Lactic Acid 1.8 Calcium 9.5 Total Bilirubin 0.90 AST 29 ALT 30 Alkaline Phosphatase 111 Total Protein 7.0 Albumin 3.4 Globulin 3.6 Albumin/Globulin Ratio 0.9 Urine Color Yellow Urine Clarity Clear Urine pH 7.0 Ur Specific [place] 1.005 Urine Protein 100 H Urine Glucose (UA) 100 H Urine Ketones Negative Urine Occult Blood 25 H Urine Nitrite Negative Urine Bilirubin Negative Urine Urobilinogen Normal Ur Leukocyte Esterase Negative Urine RBC 0-5 SEEN Urine WBC 0 SEEN Ur Squamous Epith Cells 0-5 SEEN Urine Bacteria 0 SEEN Urine Mucus 0 SEEN Radiography Diagnostic Testing: Clinical Impression(s) from Imaging Studies Chest X-Ray 06/17/23 14:57 IMPRESSION: Cardiac enlargement. No focal infiltrate. Electronically Signed: Thai Suarez MD at 15:32 EST , Management Discussion w/another healthcare provider: Other (Dr Frazier, ED Provider) Treatment and Re-Evaluation :: Lab work and imaging reviewed. CBC shows an elevated white count of 16.3 with 90% neutrophils, hemoglobin 10.8 which is improved from 06/13/2023 which was 10.4. Platelets are 136. Coagulation studies are unremarkable. Chemistry shows slightly elevated sodium at 134, potassium is normal at 5, BUN is 52 which is his baseline, creatinine is 6.98 which is also his baseline. Lactic acid is normal at 1.8. Urinalysis shows 100 of protein, 100 glucose, and 25 the blood. COVID, influenza, and RSV are all negative. Chest x-ray was negative for acute cardiopulmonary process. Patient was given 1 L normal saline bolus and 650 mg Tylenol rectally. Repeat temperature is 102.7. Patient continues with altered mental status. Hospitalist will be contacted for admission for fever of uncertain etiology, leukocytosis, and altered mental status. <Dr. Khanh Frazier MD - Last Filed: 06/17/23 16:00> [facility] Narrative Medical decision making narrative: Patient placed on candy maker helper. IV line initiated. Labwork obtained to evaluate for leukocytosis, anemia, and electrolyte derangement. Chest x-ray obtained to evaluate for acute lung pathology, cardiac size, or mediastinal abnormality. Urinalysis obtained to evaluate for infection/hematuria. Blood cu ltures obtained. I have personally performed a face to face assessment of the patient and have reviewed the NANCY Note. I performed a substantive portion of the visit including all aspects of the following. My abreu findings include: History is 82-year-old male extensive past medical history presents from [facility] with decreased mental status and a fever of 103.2. Patient is unable to give any history. Does not follow commands and only barely responds. He is DNR Comfort Care arrest. Exam is [vital signs stable with temperature 103.2. Pulse ox 92% on 3 L. Hypoxia without the oxygen. HEENT exam eyes closed. Dry mucous membranes. Neck nontender no lymphadenopathy. Lungs clear to auscultation bilaterally. Heart rate about 90. No murmur. Chest wall and ribs nontender. Abdomen soft nondistended normal bowel sounds no peritoneal signs. Moving all 4 extremities. Nontender. No rashes. Back nontender. Neurologically he is awake. His eyes are closed. He does not answer any questions. He does not follow commands.] Medical Decision Making [elderly male from a long-term DNR Comfort Care arrest with a fever. Undergo a septic workup. Currently I will hold off on IV fluids till we see some more of his labs. He is dialysis patient has a dialysis catheter in his right chest that looks clean.] Other additions or changes: [Repeat exam at 345 unchanged. Spoke to the hospitalist. Patient will be admitted to their service on telemetry. Started on IV Zosyn and vancomycin first dose ordered in the ER.] History & Record Review Discussion w/independent historian: Other (Patient febrile and very limited responsiveness.) Additional record(s) reviewed:: Prior inpatient record, Prior outpatient record, Prior ED visit and Prior labs Lab Data Attestation: I reviewed the patient's lab results. Lab results narrative: CBC shows an elevated white count of 16.3. H&H of 10.34. Platelets 136. No bands. 90% neutrophils. PT/INR 15 and 1. PTT 33. Electrolytes show sodium 134. Gap 7. BUN and creatinine of 52 and 6.98 consistent with his history of end-stage renal disease. Liver enzymes negative. UA negative. Chest x-ray negative. Labs: Laboratory Results - last 24 hr 06/17/23 06/17/23 14:22 14:53 WBC 16.3 H RBC 3.23 L Hgb 10.8 L Hct 34.0 L MCV 105.3 H MCH 33.4 H MCHC 31.8 L RDW Std Deviation 55.7 H RDW Coeff of Chloe 14.6 Plt Count 136 L MPV 9.2 Immature Gran % (Auto) 1.200 H Neut % (Auto) 90.0 H Lymph % (Auto) 2.8 L [place] % (Auto) 5.7 Eos % (Auto) 0.0 Baso % (Auto) 0.3 Absolute Neuts (auto) 14.6 H Absolute Lymphs (auto) 0.46 L Nucleated RBC % 0 PT 15.1 H INR 1.2 APTT 33.1 Sodium 134 L Potassium 5.0 Chloride 97 L Carbon Dioxide 30.0 Anion Gap 7 BUN 52 H Creatinine 6.98 H Estim Creat Clear Calc 8.96 Est GFR (MDRD) Af Amer 10 L Est GFR (MDRD) Non-Af 8 L BUN/Creatinine Ratio 7.4 L Glucose 77 Lactic Acid 1.8 Calcium 9.5 Total Bilirubin 0.90 AST 29 ALT 30 Alkaline Phosphatase 111 Total Protein 7.0 Albumin 3.4 Globulin 3.6 Albumin/Globulin Ratio 0.9 Urine Color Yellow Urine Clarity Clear Urine pH 7.0 Ur Specific [place] 1.005 Urine Protein 100 H Urine Glucose (UA) 100 H Urine Ketones Negative Urine Occult Blood 25 H Urine Nitrite Negative Urine Bilirubin Negative Urine Urobilinogen Normal Ur Leukocyte Esterase Negative Urine RBC 0-5 SEEN Urine WBC 0 SEEN Ur Squamous Epith Cells 0-5 SEEN Urine Bacteria 0 SEEN Urine Mucus 0 SEEN Radiography Chest X-Ray - ED: 1 View, Read by Radiologist, Normal, Heart, Lungs, Mediastinum, Bony Structures, No Acute Disease and Chronic Changes Diagnostic Testing: Clinical Impression(s) from Imaging Studies Chest X-Ray 06/17/23 14:57 IMPRESSION: Cardiac enlargement. No focal infiltrate. Electronically Signed: Thai Suarez MD at 15:32 EST Reading Location ID and State: [address] [place] [address] , Service support , Chest x-ray, portable, single view shows no acute abnormality. Normal cardiac silhouette. Prior sternotomy with wires. Right-sided Vas-Cath. Lungs are unremarkable. Rhythm Strip Rhythm Strip: Sinus Rhythm Rate: 84 Ectopy: None EKG Initial EKG: Attestation: I personally reviewed and interpreted this EKG as follows: Interpretation: Sinus Rhythm and No Acute Injury Pattern Comments: Normal sinus rhythm rate of 84 no acute signs of IN or ischemia. <Dr. Khanh Frazier MD - Last Filed: 06/17/23 16:00> Critical Care Time Critical Care Time: Yes Critical care time (excluding procedures): 30-74 minutes, Including time spent:, Discussing w/Patient &/or Family/Enterprise Application Architect, Discussing w/Consultants, Arranging Admission or Transfer, Performing Direct Patient Care at Bedside and - (35 minutes) Discharge Plan Dx/Rx/DC Orders Clinical Impression: Acute alteration in mental status, Fever, Leukocytosis, End stage chronic kidney disease, History of diabetes mellitus Disposition Disposition: [facility]
[2023-06-17 14:40] LABS: Absolute Lymphocyte Count 0.46 X10^3/uL (0.83-4.51); Absolute Neutrophil Count 14.6 X10^3/uL (2.0-7.7); Basophil# 0.05 X10^3/uL; Basophil% 0.3 % (0-1); Hemoglobin 10.8 g/dL (13.0-16.5); Lymphocyte # 0.46 X10^3/ul (0.83-4.51); Lymphocyte % 2.8 % (19-41); Mean Corp Hgb Conc 31.8 g/dL (32-36); Mean Corpuscular Hgb 33.4 pg (27.0-32.0); Mean Corpuscular Volume 105.3 fL (80-94); Mean Platelet Vol. 9.2 fl (6.2-12.0); Monocyte# 0.93 X10^3/uL; Monocyte% 5.7 % (0-10); NRBC Flagged by Analyzer 0 % (0-5); Neutrophil # 14.64 X10^3/uL (2.7-7.7); POSITIVE DIFFERENTIAL YES; Platelet Count 136 K/mm3 (150-450); RBC Distribution Width CV 14.6 % (11.6-14.6); RBC Distribution Width SD 55.7 fl (35.1-43.9); Red Blood Count 3.23 M/mm3 (4.6-6.2); White Blood Count 16.3 K/mm3 (4.4-11.0)
[2023-06-17] MEDS: Acetaminophen 650 MG Suppository RC ×2 (14:51→19:03)
--- NOTE | 2023-06-17 14:57 | RAD_ITS ---
STUDY: X-RAY CHEST REASON FOR EXAM: Male, 82 years old. Fever TECHNIQUE: Single AP portable view of the chest. COMPARISON: None. FINDINGS: Central catheter on the right extends to the right atrium. The lungs are clear and expanded. There is no demonstrated pleural abnormality. Sternal cerclage wires and vascular clips are present from a prior sternotomy and coronary artery bypass graft procedure (CABG). There is cardiac enlargement. Normal mediastinum and abdifatah. Normal visualized pulmonary arteries. There is atherosclerotic calcification of the aortic arch. There is demineralization of the osseous structures. Normal visualized ribs, clavicles, and shoulders. There is no demonstrated abnormality of the visualized soft tissue structures of the upper abdomen. RAD/Chest 1 View (Portable) IMPRESSION: Cardiac enlargement. No focal infiltrate. Electronically Signed: Thai Suarez MD at 15:32 EST ,
[2023-06-17 15:02] LABS: Bacteria 0 SEEN /hpf (None Seen); Mucous, Urine 0 SEEN /hpf (<or=2+); White Blood Cells 0 SEEN /hpf (0-5)
[2023-06-17 15:03] LABS: International Normalized Ratio 1.2; Prothrombin Time (Protime)PT. 15.1 SECONDS (11.7-14.9)
[2023-06-17 15:04] LABS: Partial Thromboplast Time 33.1 Seconds (24.1-36.2)
[2023-06-17 15:07] LABS: Color, Urine Yellow (Yellow); Glucose, Dipstick 100 mg/dl (Normal); Ketone-Dipstick Negative (Negative); Leukocyte Esterase-Dipstick Negative /ul (Negative); Nitrite-Dipstick Negative (Negative); Occult Blood-Urine 25 /ul (Negative); Protein-Dipstick 100 mg/dl (Negative); Specific Gravity, Urine 1.005 (1.002-1.030); Urine Bilirubin Dipstick Negative (Negative); Urine Clarity Clear (Clear); Urine Urobilinogen Normal (Normal)
[2023-06-17 15:07] LABS: Lactic Acid 1.8 mmol/L (0.4-1.9)
[2023-06-17 15:10] LABS: ALB/GLOB Ratio 0.9 RATIO (0.9-2.4); AST(SGOT) 29 U/L (15-37); Alanine Aminotransfer ALT/SGPT 30 U/L (16-61); Albumin, Serum 3.4 g/dL (3.2-5.0); Alkaline Phosphatase 111 U/L (45-117); Anion Gap 7 (5-15); BUN 52 mg/dL (7-18); BUN/Creat Ratio 7.4 RATIO (10-20); Calcium,Total 9.5 mg/dL (8.5-10.1); Chloride 97 mmol/L (98-107); Creatinine, Serum 6.98 mg/dL (0.70-1.30); EST Glomerular Filtration Rate 8 mL/min (>60); Est Glom Filt Rate - Afr Amer 10 mL/min (>60); Estimated Creatinine Clearance 8.96 ml/min; Globulin 3.6 g/dL (2.2-4.2); Glucose 77 mg/dL (74-106); Sodium Level 134 mmol/L (136-145)
[2023-06-17 15:14] LABS: Red Blood Cells-Urine 0-5 SEEN /hpf (0-5)
[2023-06-17 15:15] LABS: Squamous Epithelial Cells - UA 0-5 SEEN /hpf (0-5)
[2023-06-17] MEDS: 0.9% Normal Saline (1000mL) 1,000 ML 999 ML IV (15:42)
--- NOTE | 2023-06-17 16:04 | HP.PCM.HOS_ITS ---
HPI - General General Date of Service: 06/17/23 Chief Complaint: Altered level of consciousness, chills HPI Narrative LAILA HARLEY, is a 82 M who presents to the emergency room at [facility] from an extended care facility where he resides due to decreased mental status and chills. I am unable to obtain a history from the patient due to his confusion, patient appears lethargic but does not appear in any distress. Labs obtained in the emergency room showed an elevated white blood cell count at 16.3, hemoglobin was 10.8, creatinine was 6.98 and BUN was 52. Urinalysis and chest x-ray were unremarkable. Patient's temperature was 103.2. Patient will be admitted for elevated temperature and probable bacteremia, source is unclear at this time but could be his tunneled dialysis catheter. Patient will be given Zosyn and vancomycin, we will be seen by nephrology as he is a chronic dialysis patient. [facility]LY [facility] Medical History Atherosclerotic heart disease of [place] coronary artery without angina pectoris COPD (chronic obstructive pulmonary disease) Encephalopathy Hepatitis A Hepatitis B Hiatal hernia with GERD without esophagitis Hyperlipidemia Muscle weakness TWYLA (obstructive sleep apnea) Rhabdomyolysis Secondary hyperparathyroidism Home Medications apixaban 2.5 mg tablet (Eliquis) 2.5 mg PO BID 02/23/23 [History Last Taken 05/30/23] atorvastatin 40 mg tablet 40 mg PO QHS 02/23/23 [History Last Taken Unknown] bumetanide 2 mg tablet 2 mg PO DAILY 02/23/23 [History Last Taken Unknown] calcium acetate(phosphat bind) 667 mg capsule 1,334 mg PO TID 02/23/23 [History Last Taken Unknown] glipizide 2.5 mg tablet 2.5 mg PO BID 02/23/23 [History Last Taken 05/30/23] isosorbide mononitrate 30 mg tablet,extended release 24 hr 30 mg PO DAILY 02/23/23 [History Last Taken Unknown] vitamin B complex-vitamin C-folic acid 0.8 mg tablet (Julieta-Luis) 1 tab PO DAILY 02/23/23 [History Last Taken Unknown] calcitriol 0.5 mcg capsule 0.5 mcg PO MOWEFR 04/20/23 [History Last Taken Unknown] acetaminophen 325 mg capsule 650 mg PO Q4H PRN fever 06/17/23 [History Last Taken Unknown] acetaminophen 650 mg rectal suppository 650 mg VA Q4H PRN fever 06/17/23 [History Last Taken Unknown] aluminum-mag hydroxide-simethicone 200 mg-200 mg-20 mg/5 mL oral susp (Antacid M) 30 ml PO Q4H PRN GI DISTRESS 06/17/23 [History Last Taken Unknown] bisacodyl 10 mg rectal suppository (Dulcolax (bisacodyl)) 10 mg VA DAILY PRN constipation 06/17/23 [History Last Taken Unknown] dextrose 40 % oral gel (Glucose Gel) 10 g PO Q15M PRN hypoglycemia 06/17/23 [History Last Taken Unknown] diclofenac sodium 1 % topical gel 2 g topical QHS PRN pain 06/17/23 [History Last Taken Unknown] gabapentin 100 mg capsule 100 mg PO BID NERVE PAIN 06/17/23 [History Last Taken Unknown] glucagon HCl 1 mg solution for injection (Glucagon (HCl) Emergency Kit) 1 mg IM PRN PRN hypoglycemia 06/17/23 [History Last Taken Unknown] guaifenesin 100 mg/5 mL oral liquid (Adult Tussin Chest Congestion) 200 mg PO Q4H PRN COUGH/CONGESTION 06/17/23 [History Last Taken Unknown] nystatin 100,000 unit/gram topical cream 1 applic topical Q8H PRN GROIN IRRITATION 06/17/23 [History Last Taken Unknown] ondansetron HCl 4 mg tablet 4 mg PO Q8H PRN nausea and vomiting 06/17/23 [History Last Taken Unknown] sodium phosphates 19 gram-7 gram/118 mL enema (Enema) 118 ml VA DAILY PRN constipation 06/17/23 [History Last Taken Unknown] tramadol 50 mg tablet 50 mg PO Q12H PRN TOE PAIN 06/17/23 [History Last Taken Unknown] Allergy/AdvReac Type Severity Reaction Status Date / Time No Known Allergies Allergy Verified 04/20/23 15:24 Family History no significant family his Social History housing: alf Smoking Status: Never smoker ROS ROS Narrative Review of systems was not able to be obtained due to patient confusion and lethargy Vital Signs Vital Signs Vital Signs: 06/17/23 14:09 06/17/23 14:18 06/17/23 14:25 Temperature 103.2 F H Temperature Source Axillary Pulse Rate 88 Respiratory Rate 22 H Blood Pressure 170/55 H Blood Pressure Mean 93 Pulse Ox 92 100 100 Oxygen Delivery Method Nasal Cannula Nasal Cannula Nasal Cannula Oxygen Flow Rate (L/min) 3 3 3 06/17/23 15:43 06/17/23 15:44 Temperature 102.7 F H Temperature Source Core Pulse Rate 61 Respiratory Rate 24 H Blood Pressure 106/45 L Blood Pressure Mean 65 Pulse Ox 97 Oxygen Delivery Method Nasal Cannula Oxygen Flow Rate (L/min) 5 Weight Weight: 89.2 kg Body Mass Index (BMI) 26.6 Physical Exam Const no apparent distress and average body habitus Constitutional Narrative: Patient awakens to verbal stimulation but does not carry on conversation, he does say a few words. General Appearance: well kempt and well developed HEENT normocephalic, head/scalp atraumatic, hearing grossly normal bilaterally and moist oral mucous membranes Eyes PERRL, EOMs intact bilaterally and conjunctivae normal Neck supple, no JVD, thyroid normal and no carotid bruits General: trachea midline Resp normal respiratory effort, no retractions, no use of accessory muscles and clear to auscultation bilaterally Auscultation: Negative for rales, rhonchi or wheezes Cardio regular rate, regular rhythm, S1 normal heart sound, S2 normal heart sound, no murmurs, no rub and no gallops GI normal to inspection, nondistended, normoactive bowel sounds, soft to palpation, non-tender and non-distended Extremity no clubbing, cyanosis or edema Skin no rashes or lesions noted General Skin Exam: no breakdown Neuro CN's II-XII intact bilaterally and moves all extremities Neuro Narrative: Patient is lethargic, he awakens to verbal and painful stimuli but is confused Psych Psych Narrative: Patient is lethargic and confused Results Lab / Micro Data 06/17/23 14:22 06/17/23 14:22 Labs: Laboratory Results - last 24 hr 06/17/23 14:22: WBC 16.3 H, RBC 3.23 L, Hgb 10.8 L, Hct 34.0 L, MCV 105.3 H, MCH 33.4 H, MCHC 31.8 L, RDW Std Deviation 55.7 H, RDW Coeff of Chloe 14.6, Plt Count 136 L, MPV 9.2, Immature Gran % (Auto) 1.200 H, Neut % (Auto) 90.0 H, Lymph % (Auto) 2.8 L, [place] % (Auto) 5.7, Eos % (Auto) 0.0, Baso % (Auto) 0.3, Absolute Neuts (auto) 14.6 H, Absolute Lymphs (auto) 0.46 L, Nucleated RBC % 0, PT 15.1 H , INR 1.2, APTT 33.1, Sodium 134 L, Potassium 5.0, Chloride 97 L, Carbon Dioxide 30.0, Anion Gap 7, BUN 52 H, Creatinine 6.98 H, Estim Creat Clear Calc 8.96, Est GFR (MDRD) Af Amer 10 L, Est GFR (MDRD) Non-Af 8 L, BUN/Creatinine Ratio 7.4 L, Glucose 77, Lactic Acid 1.8, Calcium 9.5, Total Bilirubin 0.90, AST 29, ALT 30, Alkaline Phosphatase 111, Total Protein 7.0, Albumin 3.4, Globulin 3.6, Albumin/Globulin Ratio 0.9 06/17/23 14:53: Urine Color Yellow, Urine Clarity Clear, Urine pH 7.0, Ur Specific [place] 1.005, Urine Protein 100 H, Urine Glucose (UA) 100 H, Urine Ketones Negative, Urine Occult Blood 25 H, Urine Nitrite Negative, Urine Bilirubin Negative, Urine Urobilinogen Normal, Ur Leukocyte Esterase Negative, Urine RBC 0-5 SEEN, Urine WBC 0 SEEN, Ur Squamous Epith Cells 0-5 SEEN, Urine Bacteria 0 SEEN, Urine Mucus 0 SEEN Micro: Microbiology 06/17/23 14:22 Mucosa - Nose SARS-CoV-2, Influenza & RSV (PCR) - Final Rhythm Strip Rhythm Strip: Sinus Rhythm Rate: 84 Ectopy: None Imaging Radiology Impression Chest X-Ray 06/17/23 14:57 IMPRESSION: Cardiac enlargement. No focal infiltrate. Electronically Signed: Thai Suarez MD at 15:32 EST , Assessment & Plan Assessment/Plan (1) End stage chronic kidney disease: PLAN: Plan 1. Suspected bacteremia-patient will be admitted to PCU, IV Zosyn and vancomycin will be administered, patient will be seen in consultation by nephrology due to his end-stage renal disease, according to alf paperwork patient is a DNR CC arrest without intubation. Labs will be monitored. #2 metabolic encephalopathy secondary to multiple medical issues and probable bacteremia-complicates care, medical course, recovery, and prognosis, supportive care will be given #3 type 2 diabetes-fingerstick blood sugars will be monitored, sliding scale insulin will be used as needed #4 end-stage renal disease on dialysis-patient has a tunneled dialysis catheter over his right chest wall area, he will be seen in consultation by nephrology #5 chronic obstructive pulmonary disease-patient is currently on 2 L of oxygen in the emergency room, pulse ox will be monitored, oxygen will be adjusted as necessary #6 anemia of chronic renal disease-patient's hemoglobin today was 10.8, labs will be monitored #7 coronary artery disease-stable at this time, continue present medications Patient is a DNR CC arrest Total clinical time spent by myself addressing the patient's medical issues, reviewing all of his data, and collaborating with patient's care team: 75 m inutes Charges/Coding Visit Charges Inpatient E&M: 88345 Init Hosp L3
[2023-06-17] MEDS: Vancomycin HCl 2,000 MG in 0.9% Normal Saline (500mL Bag) 500 ML 250 MG IV (16:31)
[2023-06-17] MEDS: Piperacil/Tazobactam 4.5 GM in 0.9% Normal Saline (100mL MB+) 100 ML IV (16:31)
--- NOTE | 2023-06-17 17:41 | PHA.PHARE_ITS ---
Consult Antibiotic Management Pharmacy has been consulted to manage selected antibiotic: Vancomycin Type of Intervention Type of Consult: New start Suspected Infection Suspected Infection: Sepsis and Bacteremia Prior Doses of Antibiotics Prior Doses of Antibiotics Received/Current Regimen: Vancomycin 2000 mg IV x 1 given 06/17/23 @ 1631, patient is also piperacillin /tazobactam 3.375 grams Q12H Labs Labs: Sodium 134 mmol/L (136-145) L 06/17/23 14:22 Potassium 5.0 mmol/L (3.5-5.1) 06/17/23 14:22 Chloride 97 mmol/L (98-107) L 06/17/23 14:22 Carbon Dioxide 30.0 mmol/L (21.0-32.0) 06/17/23 14:22 Anion Gap 7 (5-15) 06/17/23 14:22 BUN 52 mg/dL (7-18) H 06/17/23 14:22 Creatinine 6.98 mg/dL (0.70-1.30) H 06/17/23 14:22 Est GFR (MDRD) Af Amer 10 mL/min (>60) L 06/17/23 14:22 Est GFR (MDRD) Non-Af 8 mL/min (>60) L 06/17/23 14:22 BUN/Creatinine Ratio 7.4 RATIO (10-20) L 06/17/23 14:22 Glucose 77 mg/dL (74-106) 06/17/23 14:22 Microbiology Microbiology: Microbiology 06/17/23 14:22 Mucosa - Nose SARS-CoV-2, Influenza & RSV (PCR) - Final Dosing Weight Weight used for dosin kg Estimated Creatinine Clearance Estimated Creatinine Clearance: hemodialys Goal Trough Goal Trough: 15-20 mcg/mL Pharmacy Plan for Drug Dosing Pharmacy Plan for Drug Dosing: Vancomycin 2000 mg IV x 1. Subsequently will plan for 750 mg IV after next HD session, with a trough prior to the HD session after the 750 mg IV dose. Pharmacy Service will continue to monitor and adjust dosing as required. Follow-Up Labs Follow-Up Labs: Trough: Vancomycin Date/Time Labs Ordered Labs to be done on [date and time ordered]: pending HD schedule
[2023-06-17] MEDS: 0.9% Normal Saline (1000mL) 1,000 ML 75 ML IV (17:51)
[2023-06-17] MEDS: Piperacil/Tazobactam 3.375 GM in 0.9% Normal Saline (50mL MB+) 50 ML IV (20:56)
[2023-06-17 22:21] LABS: Bedside Glucose 83 mg/dL (74-106)
[2023-06-18] VITALS (16 sets, daily range): BP systolic 94–116; BP diastolic 45–80; PULSE 51–63; RESP 16–26; TEMP 36.6–37.9; O2SAT 91–99
[2023-06-18] MEDS: Acetaminophen 325 MG Tablet 650 MG PO ×2 (02:22→22:29)
[2023-06-18 06:33] LABS: Bedside Glucose 88 mg/dL (74-106)
[2023-06-18 06:36] LABS: Absolute Lymphocyte Count 0.71 X10^3/uL (0.83-4.51); Absolute Neutrophil Count 13.4 X10^3/uL (2.0-7.7); Basophil# 0.05 X10^3/uL; Basophil% 0.3 % (0-1); Eosinophil# 0.02 X10^3/uL; Eosinophils% 0.1 % (0-5); Hematocrit 31.6 % (40-54); Hemoglobin 10.1 g/dL (13.0-16.5); Lymphocyte # 0.71 X10^3/ul (0.83-4.51); Lymphocyte % 4.6 % (19-41); Mean Corpuscular Hgb 34.1 pg (27.0-32.0); Mean Corpuscular Volume 106.8 fL (80-94); Mean Platelet Vol. 9.6 fl (6.2-12.0); Monocyte# 1.07 X10^3/uL; Monocyte% 6.9 % (0-10); NRBC Flagged by Analyzer 0 % (0-5); Neutrophil # 13.38 X10^3/uL (2.7-7.7); Neutrophil % 86.5 % (47-70); Platelet Count 109 K/mm3 (150-450); RBC Distribution Width SD 57.6 fl (35.1-43.9); Red Blood Count 2.96 M/mm3 (4.6-6.2); White Blood Count 15.5 K/mm3 (4.4-11.0)
[2023-06-18 06:59] LABS: ALB/GLOB Ratio 0.9 RATIO (0.9-2.4); AST(SGOT) 24 U/L (15-37); Alanine Aminotransfer ALT/SGPT 27 U/L (16-61); Albumin, Serum 2.7 g/dL (3.2-5.0); Alkaline Phosphatase 90 U/L (45-117); Anion Gap 7 (5-15); BUN 57 mg/dL (7-18); BUN/Creat Ratio 7.5 RATIO (10-20); Calcium,Total 8.6 mg/dL (8.5-10.1); Chloride 103 mmol/L (98-107); Creatinine, Serum 7.61 mg/dL (0.70-1.30); EST Glomerular Filtration Rate 7 mL/min (>60); Est Glom Filt Rate - Afr Amer 9 mL/min (>60); Estimated Creatinine Clearance 8.21 ml/min; Globulin 3.1 g/dL (2.2-4.2); Glucose 92 mg/dL (74-106); Phosphorus 4.6 mg/dL (2.5-4.9); Potassium 4.3 mmol/L (3.5-5.1); Protein, Total 5.8 g/dL (6.4-8.2); Sodium Level 135 mmol/L (136-145)
[2023-06-18] MEDS: 0.9% Normal Saline (1000mL) 1,000 ML 75 ML IV ×2 (07:06→19:52)
--- NOTE | 2023-06-18 08:04 | PCM.PN.HOSP ---
Reason for Visit Reason for Visit: Altered mentation Subjective Subjective Mr. Clifton is an 82-year-old male resident of [facility] who presented to the emergency department at [facility] on 06/17/2023 with concerns of multiple altered mentation. He has a complicated past medical history and had an aortogram done on 05/18/[address] Johnson[address] He was not able to participate in review of systems and there was no one with him to augment his history of present illness on admission. He evidently was having altered mental status and chills that was new onset and was appearing extremely lethargic. He did not appear uncomfortable. Vital signs on presentation showed a temperature of 103.2, heart rate was 88, blood pressure was 170/75 with a rene blood pressure of 87/41, respiratory rate was 22 and oxygen saturations were initially 92% on 3 L nasal cannula but if stabilized and have been between 95 and 100% on 2 L. His CBC on presentation showed a marked leukocytosis which was new compared to the lab on 06/13/2023. His white count was 16.3 and he had a left shift with 90% neutrophilia. He had mild thrombocytopenia with a platelet count of 136,000 and a chronic stable anemia with hemoglobin of 10.8. Coags were abnormal however the patient is on apixaban. His chemistry panel showed mild hyponatremia with a sodium of 134, had a elevated BUN and creatinine which was normal as he is on dialysis at baseline, his lactic acid was normal at 1.8 and his liver functions were unremarkable. Chest x-ray showed cardiac enlargement but no acute process and no localized infiltrate. COVID/flu/RSV was negative. Blood cultures and urine were obtained and are thus far showing growth. His blood culture shows gram-positive cocci in clusters in both bottles and his urine cultures pending. He is currently on vancomycin and Zosyn. His fever curve has been trending down and overnight his Tmax was 100.3. Current blood pressure is 104/48 and he is not tachycardic. He is stable on 2 L of oxygen. Patient sleeping soundly at the time my evaluation. Objective Data Objective Data Vital Signs: Vital Signs Temp Pulse Resp BP Pulse Ox O2 Del Method O2 Flow Rate 98.3 F 54 L 20 H 104/48 L 96 Nasal Cannula 2 06/18/23 07:00 06/18/23 07:00 06/18/23 07:00 06/18/23 07:00 06/18/23 07:00 06/18/23 07:00 06/18/23 07:00 Oxygen Flow Rate (L/min) 2 Oxygen Delivery Method Nasal Cannula Weight: 85.8 kg Body Mass Index (BMI) 25.6 Intake & Output: Intake and Output for Last 24 Hours 06/16/23 06/17/23 06/18/23 23:59 23:59 23:59 Intake Total 1640 / 1640 1200 / 1200 Output Total 75 / 475 700 / 700 Balance 1565 / 1165 500 / 500 Lab / Micro Data 06/18/23 05:35 06/18/23 05:35 Labs: Laboratory Results - last 24 hr 06/17/23 14:22: WBC 16.3 H, RBC 3.23 L, Hgb 10.8 L, Hct 34.0 L, MCV 105.3 H, MCH 33.4 H, MCHC 31.8 L, RDW Std Deviation 55.7 H, RDW Coeff of Chloe 14.6, Plt Count 136 L, MPV 9.2, Immature Gran % (Auto) 1.200 H, Neut % (Auto) 90.0 H, Lymph % (Auto) 2.8 L, [place] % (Auto) 5.7, Eos % (Auto) 0.0, Baso % (Auto) 0.3, Absolute Neuts (auto) 14.6 H, Absolute Lymphs (auto) 0.46 L, Nucleated RBC % 0, PT 15.1 H, INR 1.2, APTT 33.1, Sodium 134 L, Potassium 5.0, Chloride 97 L, Carbon Dioxide 30.0, Anion Gap 7, BUN 52 H, Creatinine 6.98 H, Estim Creat Clear Calc 8.96, Est GFR (MDRD) Af Amer 10 L, Est GFR (MDRD) Non-Af 8 L, BUN/Creatinine Ratio 7.4 L, Glucose 77, Lactic Acid 1.8, Calcium 9.5, Total Bilirubin 0.90, AST 29, ALT 30, Alkaline Phosphatase 111, Total Protein 7.0, Albumin 3.4, Globulin 3.6, Albumin/Globulin Ratio 0.9 06/17/23 14:53: Urine Color Yellow, Urine Clarity Clear, Urine pH 7.0, Ur Specific [place] 1.005, Urine Protein 100 H, Urine Glucose (UA) 100 H, Urine Ketones Negative, Urine Occult Blood 25 H, Urine Nitrite Negative, Urine Bilirubin Negative, Urine Urobilinogen Normal, Ur Leukocyte Esterase Negative, Urine RBC 0-5 SEEN, Urine WBC 0 SEEN, Ur Squamous Epith Cells 0-5 SEEN, Urine Bacteria 0 SEEN, Urine Mucus 0 SEEN 06/17/23 21:05: POC Glucose 83 06/18/23 05:35: WBC 15.5 H, RBC 2.96 L, Hgb 10.1 L, Hct 31.6 L, MCV 106.8 H, MCH 34.1 H, MCHC 32.0, RDW Std Deviation 57.6 H, RDW Coeff of Chloe 15.0 H, Plt Count 109 L, MPV 9.6, Immature Gran % (Auto) 1.600 H, Neut % (Auto) 86.5 H, Lymph % (Auto) 4.6 L, [place] % (Auto) 6.9, Eos % (Auto) 0.1, Baso % (Auto) 0.3, Absolute Neuts (auto) 13.4 H, Absolute Lymphs (auto) 0.71 L, Nucleated RBC % 0, Sodium 135 L, Potassium 4.3, Chloride 103, Carbon Dioxide 25.0, Anion Gap 7, BUN 57 H, Creatinine 7.61 H*, Estim Creat Clear Calc 8.21, Est GFR (MDRD) Af Amer 9 L, Est GFR (MDRD) Non-Af 7 L, BUN/Creatinine Ratio 7.5 L, Glucose 92, Calcium 8.6, Phosphorus 4.6, Total Bilirubin 1.20 H, AST 24, ALT 27, Alkaline Phosphatase 90, Total Protein 5.8 L, Albumin 2.7 L, Globulin 3.1, Albumin/Globulin Ratio 0.9 06/18/23 06:14: POC Glucose 88 Micro: Microbiology 06/17/23 14:34 Blood Culture (Wb) - Right Forearm Blood Culture - Preliminary 06/17/23 14:22 Blood Culture (Wb) - Anticubital Right Blood Culture - Preliminary 06/17/23 14:22 Mucosa - Nose SARS-CoV-2, Influenza & RSV (PCR) - Final Radiography Diagnostic Testing: Radiology Impression Chest X-Ray 06/17/23 14:57 IMPRESSION: Cardiac enlargement. No focal infiltrate. Electronically Signed: Thai Suarez MD at 15:32 EST , Rhythm Strip Rhythm Strip: Sinus Rhythm Rate: 84 Ectopy: None Physical Exam Const no apparent distress and average body habitus; Negative for healthy appearing Constitutional Narrative: Elderly, white male, sleeping soundly, currently appears comfortable and nontoxic HEENT head/scalp atraumatic Head and Scalp: normocephalic Resp normal respiratory effort, no retractions and no use of accessory muscles Resp Narrative: Diminished with few crackles at bases bilaterally, breathing appears comfortable Auscultation: crackles; Negative for rhonchi or wheezes Cardio regular rate, regular rhythm, S1 normal heart sound, S2 normal heart sound, no rub, no gallops and no clicks; Negative for no murmurs Cardio Narrative: Systolic murmur noted GI normal to inspection, nondistended, normoactive bowel sounds and soft to palpation Extremity Extremity Narrative: Post procedure bilateral lower extremity wounds, no cyanosis or clubbing, trace edema Skin Skin Narrative: Left upper extremity fistula with positive bruit and thrill, tunneled dialysis catheter right chest with no purulence expressed from the entrance site Neuro Neuro Narrative: Unable to assess as patient was sleeping soundly Assessment & Plan Assessment/Plan (1) Staphylococcus aureus bacteremia: (2) Thrombocytopenia: (3) Fever: PLAN: Plan Gram-positive cocci in clusters bacteremia--> highly suspect Staph aureus -Patient does not meet sepsis criteria per Sep 3 protocol as there was no identifiable endorgan damage -2 of 2 blood cultures already showing gram-positive cocci in clusters -Fever curve seems to be improving -White count is slightly better -MRSA PCR is pending -Suspect source is his line -Continue vancomycin and Zosyn for now -Repeat blood cultures in a.m. -Check surface echocardiogram and may need ABBI -Consult general surgery for removal of tunneled line -Consult infectious disease Toxic/metabolic encephalopathy -Likely related to the above -Should improve back to baseline with treatment of underlying disease Thrombocytopenia -Appears that his platelet counts fluctuate and are never that robust -Slight drop overnight however may be related to fluids and sepsis -Repeat CBC in a.m. Leukocytosis -See above Chronic anemia secondary to chronic renal disease -Hemoglobin is stable -Okay to continue apixaban -Monitor End-stage renal disease -HD dependent -Continue calcitriol -Continue phosphate binder -Nephrology consult--> discussed with Dr. Weber and we are okay to remove his tunneled dialysis catheter at this time as his fistula is working well CAD/HTN/HPL -Previous cardiac catheterization done at [facility] that showed left main coronary with minimal irregularities ramus intermedius with 95% stenosis after being occluded, left anterior descending artery with a long tubular 80% stenosis with calcification and a left circumflex artery with a mid segment which was calcified the proximal with a 40% stenosis and a medium caliber bifurcating lateral branch that has an ostial 90% stenosis. He also has a right coronary artery which had a 75% stenosis in the midsegment had a long tubular 60% stenosis -For this, CABG was considered but medical therapy was ultimately recommended -Continue atorvastatin -Hold Bumex -Hold isosorbide mononitrate Atrial fibrillation -Patient is not on any rate controlling medication -Continue home apixaban -Previous documentation indicates a pacemaker was recommended at some point but he declined and was recommended to avoid AV larry blocking agents due to bradycardic events PVD -Recent aortogram with right lower extremity runoff on 05/31/2023 -Continue outpatient follow-up with vascular medicine -Continue management for secondary risk factors Diabetic neuropathy -Continue home gabapentin History of DM-2 -Patient had a normal hemoglobin A1c on 05/16/2023 at 4.8 with minimal anemia -Would recommend discontinuation of his glipizide as an outpatient -No need for SSI or Accu-Cheks COPD -Patient does not appear to be on any inhalers at baseline -As needed albuterol -As needed guaifenesin DVT prophylaxis -continue home apixaban CODE STATUS -DNR CCA with no intubation per documentation from the nursing facility Charges/Coding Visit Charges Inpatient E&M: 06985 Subs Hosp L2
--- NOTE | 2023-06-18 08:09 | ECHOD_ITS ---
Reason For Study: Staph bacteremia Procedure This was a 2D Doppler, Color Flow transthoracic echocardiogram. Exam performed portable in ICU/CCU. Left Ventricle Normal LV size. Moderate concentric left ventricular hypertrophy. The left ventricular ejection fraction is 65 %. At least stage II diastolic dysfunction. Right Ventricle Normal right ventricle. Atria The left atrium is moderately enlarged. The right atrium is mildly enlarged. Mitral Valve Mild mitral annular calcification. Mild-Moderate (1-2+) mitral valve insufficiency. Tricuspid Valve Moderate (2+) tricuspid valve insufficiency. Right ventricular systolic pressure estimated to be 55 mmHg. Aortic Valve Trisinus/trileaflet aortic valve. Mild aortic stenosis. Trivial aortic valve insufficiency. Pulmonic Valve The pulmonic valve is not well visualized. Great Vessels Normal sized aortic root. Pericardium/Pleural No pericardial effusion. MMode/2D Measurements & Calculations LVIDd: 4.3 cm IVSd: 1.5 cm LVOT diam: 2.2 cm LVIDs: 2.8 cm LVPWd: 1.5 cm LVOT area: 3.7 cm2 RVDd: 4.1 cm FS: 33.9 % Ao root diam: 3.5 cm LAV(MOD-bp): 86.8 ml LVAd ap4: 29.4 cm2 LAV(MOD-bp) Indexed: 41.7 ml/m2 LVLd ap4: 8.0 cm LAV(MOD-sp2): 72.1 ml EDV(MOD-sp4): 89.1 ml LAV(MOD-sp4): 98.5 ml EDV(sp4-el): 91.4 ml LVAs ap4: 16.8 cm2 LVLs ap4: 7.2 cm ESV(MOD-sp4): 33.3 ml ESV(sp4-el): 33.3 ml EF(MOD-sp4): 62.7 % EF(sp4-el): 63.5 % LVAd ap2: 34.0 cm2 SV(MOD-sp4): 55.9 ml SV(MOD-sp2): 73.8 ml LVLd ap2: 8.7 cm EDV(MOD-sp2): 112.2 ml EDV(sp2-el): 113.6 ml LVAs ap2: 19.0 cm2 LVLs ap2: 8.0 cm ESV(MOD-sp2): 38.3 ml ESV(sp2-el): 38.7 ml EF(MOD-sp2): 65.8 % SV(sp4-el): 58.1 ml LA dimension(2D): 5.0 cm LA A4 area: 28.0 cm2 RA A4 area: 18.8 cm2 Doppler Measurements & Calculations MV E max miguel: 149.5 cm/sec Lat Peak E' Miguel: 9.8 cm/sec Med Peak E' Miguel: 6.4 cm/sec E/E' lat: 15.2 E/E' med: 23.3 MV V2 max: 165.6 cm/sec MV P1/2t max miguel: 163.2 cm/sec Ao V2 max: 231.4 cm/sec MV max P.0 mmHg MV P1/2t: 73.8 msec Ao max P.5 mmHg MV V2 mean: 79.9 cm/sec MV dec slope: 647.4 cm/sec2 Ao V2 mean: 150.3 cm/sec MV mean P.5 mmHg Ao mean P.3 mmHg MV V2 VTI: 32.2 cm MVA(P1/2t): 3.0 cm2 Ao V2 VTI: 46.7 cm MVA(VTI): 2.4 cm2 AV (velocity ratio): 0.44 HUYEN(I,D): 1.7 cm2 HUYEN(V,D): 1.6 cm2 LV V1 max: 102.0 cm/sec SV(LVOT): 77.1 ml PA V2 max: 108.1 cm/sec LV V1 max P.2 mmHg LV V1 mean P.0 mmHg LV V1 mean: 65.2 cm/sec LV V1 VTI: 20.6 cm TR max miguel: 319.9 cm/sec TR max P.9 mmHg ECHO/Echo Complete Interpretation Summary Moderate concentric left ventricular hypertrophy. The left ventricular ejection fraction is 65 %. At least stage II diastolic dysfunction The left atrium is moderately enlarged. The right atrium is mildly enlarged. Mild-Moderate (1-2+) mitral valve insufficiency. Moderate (2+) tricuspid valve insufficiency. Right ventricular systolic pressure estimated to be 55 mmHg. Mild aortic stenosis. No vegetations noted on this surface echocardiogram. Please consider ABBI for fu rther evaluation if clinically indicated. Ordering Physician: Christine Dallas Referring Physician: Gurpreet Prajapati Performed By: Manasa Barnett RDCS
[2023-06-18] MEDS: Calcium Acetate 667 MG Capsule 1334 MG PO ×3 (08:36→17:03)
[2023-06-18] MEDS: APIXABAN 2.5 MG TABLET (WCH) PO ×2 (08:36→19:55)
[2023-06-18] MEDS: Piperacil/Tazobactam 3.375 GM in 0.9% Normal Saline (50mL MB+) 50 ML IV ×2 (10:55→19:54)
[2023-06-18 11:57] LABS: Bedside Glucose 155 mg/dL (74-106)
--- NOTE | 2023-06-18 16:01 | CON.PCM.RE_ITS ---
Assessment & Plan Assessment/Plan (1) End stage chronic kidney disease: PLAN: On hemodialysis. Last dialysis was Monday. [facility]. Recently we have been able to use fistula with both needles. Currently has bacteremia. Right IJ dialysis catheter can be removed. Antibiotics as per primary. Discussed with hospitalist. HPI Consult Data Date of Consult: 06/18/23 HPI Narrative Reason for Consultation: ESRD HPI Narrative: LAILA HARLEY, is a 82 M who presents To the hospital with altered mental status, fever, chills. Nephrology on consultation in view of ESRD. [facility], 4 times a [facility]. Last dialysis was Monday. He has a left arm AV fistula which was initially not very mature hence he required a right IJ tunneled dialysis catheter. Recently we were able to use fistula with both needles. The original plan was to have catheter removed in the next 1 to 2 weeks. Came in with sepsis, gram-positive cocci bacteremia. No exit site infection. [facility] Medical History Atherosclerotic heart disease of [place] coronary artery without angina pectoris COPD (chronic obstructive pulmonary disease) Encephalopathy Hepatitis A Hepatitis B Hiatal hernia with GERD without esophagitis Hyperlipidemia Muscle weakness TWYLA (obstructive sleep apnea) Rhabdomyolysis Secondary hyperparathyroidism Home Medications apixaban 2.5 mg tablet (Eliquis) 2.5 mg PO BID 02/23/23 [History Last Taken 05/30/23] atorvastatin 40 mg tablet 40 mg PO QHS 02/23/23 [History Last Taken Unknown] bumetanide 2 mg tablet 2 mg PO DAILY 02/23/23 [History Last Taken Unknown] calcium acetate(phosphat bind) 667 mg capsule 1,334 mg PO TID 02/23/23 [History Last Taken Unknown] glipizide 2.5 mg tablet 2.5 mg PO BID 02/23/23 [History Last Taken 05/30/23] isosorbide mononitrate 30 mg tablet,extended release 24 hr 30 mg PO DAILY 02/23/23 [History Last Taken Unknown] vitamin B complex-vitamin C-folic acid 0.8 mg tablet (Julieta-Luis) 1 tab PO DAILY 02/23/23 [History Last Taken Unknown] calcitriol 0.5 mcg capsule 0.5 mcg PO MOWEFR 04/20/23 [History Last Taken Unknown] acetaminophen 325 mg capsule 650 mg PO Q4H PRN fever 06/17/23 [History Last Taken Unknown] acetaminophen 650 mg rectal suppository 650 mg [place] Q4H PRN fever 06/17/23 [History Last Taken Unknown] aluminum-mag hydroxide-simethicone 200 mg-200 mg-20 mg/5 mL oral susp (Antacid M) 30 ml PO Q4H PRN GI DISTRESS 06/17/23 [History Last Taken Unknown] bisacodyl 10 mg rectal suppository (Dulcolax (bisacodyl)) 10 mg [place] DAILY PRN constipation 06/17/23 [History Last Taken Unknown] dextrose 40 % oral gel (Glucose Gel) 10 g PO Q15M PRN hypoglycemia 06/17/23 [History Last Taken Unknown] diclofenac sodium 1 % topical gel 2 g topical QHS PRN pain 06/17/23 [History Last Taken Unknown] gabapentin 100 mg capsule 100 mg PO BID NERVE PAIN 06/17/23 [History Last Taken Unknown] glucagon HCl 1 mg solution for injection (Glucagon (HCl) Emergency Kit) 1 mg IM PRN PRN hypoglycemia 06/17/23 [History Last Taken Unknown] guaifenesin 100 mg/5 mL oral liquid (Adult Tussin Chest Congestion) 200 mg PO Q4H PRN COUGH/CONGESTION 06/17/23 [History Last Taken Unknown] nystatin 100,000 unit/gram topical cream 1 applic topical Q8H PRN GROIN IRRITATION 06/17/23 [History Last Taken Unknown] ondansetron HCl 4 mg tablet 4 mg PO Q8H PRN nausea and vomiting 06/17/23 [History Last Taken Unknown] sodium phosphates 19 gram-7 gram/118 mL enema (Enema) 118 ml [place] DAILY PRN constipation 06/17/23 [History Last Taken Unknown] tramadol 50 mg tablet 50 mg PO Q12H PRN TOE PAIN 06/17/23 [History Last Taken Unknown] Allergy/AdvReac Type Severity Reaction Status Date / Time No Known Allergies Allergy Verified 04/20/23 15:24 Family History no significant family his Social History [facility] Smoking Status: Never smoker ROS ROS Narrative Negative except above Physical Exam Narrative Alert awake oriented x 3 no obvious distress no pallor no icterus no JVD s1s2 no murmurs lungs clear abdomen soft no organomegaly no edema no cyanosis Lab / Micro Data 06/18/23 05:35 06/18/23 05:35 Labs: Laboratory Results - last 24 hr 06/17/23 21:05: POC Glucose 83 06/18/23 05:35: WBC 15.5 H, RBC 2.96 L, Hgb 10.1 L, Hct 31.6 L, MCV 106.8 H, MCH 34.1 H, MCHC 32.0, RDW Std Deviation 57.6 H, RDW Coeff of Chloe 15.0 H, Plt Count 109 L, MPV 9.6, Immature Gran % (Auto) 1.600 H, Neut % (Auto) 86.5 H, Lymph % (Auto) 4.6 L, [place] % (Auto) 6.9, Eos % (Auto) 0.1, Baso % (Auto) 0.3, Absolute Neuts (auto) 13.4 H, Absolute Lymphs (auto) 0.71 L, Nucleated RBC % 0, Sodium 135 L, Potassium 4.3, Chloride 103, Carbon Dioxide 25.0, Anion Gap 7, BUN 57 H, Creatinine 7.61 H*, Estim Creat Clear Calc 8.21, Est GFR (MDRD) Af Amer 9 L, Est GFR (MDRD) Non-Af 7 L, BUN/Creatinine Ratio 7.5 L, Glucose 92, Calcium 8.6, Phosphorus 4.6, Total Bilirubin 1.20 H, AST 24, ALT 27, Alkaline Phosphatase 90, Total Protein 5.8 L, Albumin 2.7 L, Globulin 3.1, Albumin/Globulin Ratio 0.9 06/18/23 06:14: POC Glucose 88 06/18/23 11:01: POC Glucose 155 H Micro: Microbiology 06/17/23 14:22 Blood Culture (Wb) - Anticubital Right Bacteria Detection (P CR) - Final Staphylococcus aureus mecA Resistance Marker 06/17/23 14:22 Blood Culture (Wb) - Anticubital Right Blood Culture - Preliminary 06/17/23 14:34 Blood Culture (Wb) - Right Forearm Blood Culture - Preliminary 06/17/23 14:22 Mucosa - Nose SARS-CoV-2, Influenza & RSV (PCR) - Final Rhythm Strip Rhythm Strip: Sinus Rhythm Rate: 84 Ectopy: None
[2023-06-18 17:10] LABS: M R Staph aureus DNA By PCR Negative (Negative); Probe Check PASS; Specimen Processing Control PASS
[2023-06-18] MEDS: Atorvastatin Calcium 40 MG Tablet PO (19:55)
[2023-06-18] MEDS: Insulin Lispro 100 UNIT/ML INSULN.PEN SC (20:04)
[2023-06-18 20:19] LABS: Bedside Glucose 133 mg/dL (74-106)
[2023-06-18 20:19] LABS: Bedside Glucose 231 mg/dL (74-106)
[2023-06-18] MEDS: traMADol 50 MG Tablet PO (23:15)
[2023-06-19] VITALS (54 sets, daily range): BP systolic 88–227; BP diastolic 49–83; PULSE 38–83; RESP 12–24; TEMP 36.2–37.1; O2SAT 91–100; BMI 25.6
[2023-06-19] MEDS: Albumin Human 25% (100 mL) 25 GM/100 ML BAG IV ×2 (02:02→03:30)
[2023-06-19] MEDS: 0.9% Normal Saline (250mL Bag) 250 ML 999 ML IV (03:30)
--- NOTE | 2023-06-19 03:44 | PCM.HOSP.N ---
Hospitalist Note I was called at approximately 3 AM and informed patient was dropping his blood pressure in the 80 mm systolic range consistent with sepsis with septic shock. He has a known infected catheter for dialysis which was scheduled to be removed in the a.m. Now orders will be made to move patient to the ICU so he can start on Levophed drip to maintain his MAP greater than 65 mmHg. RN was updated with plan.
[2023-06-19] MEDS: Albuterol 2.5 MG/3 ML VIAL.NEB. INHALATION ×6 (03:45→22:58)
[2023-06-19 04:32] LABS: Absolute Lymphocyte Count 1.05 X10^3/uL (0.83-4.51); Absolute Neutrophil Count 5.5 X10^3/uL (2.0-7.7); Basophil# 0.02 X10^3/uL; Basophil% 0.3 % (0-1); Eosinophil# 0.07 X10^3/uL; Eosinophils% 0.9 % (0-5); Hematocrit 21.4 % (40-54); Hemoglobin 6.6 g/dL (13.0-16.5); Lymphocyte # 1.05 X10^3/ul (0.83-4.51); Lymphocyte % 14.2 % (19-41); Mean Corp Hgb Conc 30.8 g/dL (32-36); Mean Corpuscular Hgb 33.7 pg (27.0-32.0); Mean Corpuscular Volume 109.2 fL (80-94); Mean Platelet Vol. 9.3 fl (6.2-12.0); Monocyte# 0.73 X10^3/uL; Monocyte% 9.8 % (0-10); NRBC Flagged by Analyzer 0 % (0-5); Neutrophil % 74.1 % (47-70); POSITIVE COUNT YES; Platelet Count 71 K/mm3 (150-450); RBC Distribution Width CV 14.8 % (11.6-14.6); RBC Distribution Width SD 59.1 fl (35.1-43.9); Red Blood Count 1.96 M/mm3 (4.6-6.2); White Blood Count 7.4 K/mm3 (4.4-11.0)
[2023-06-19 04:38] LABS: Differential Indicated SCAN CRITERIA MET
[2023-06-19 04:53] LABS: AST(SGOT) 17 U/L (15-37); Alanine Aminotransfer ALT/SGPT 24 U/L (16-61); Albumin, Serum 2.8 g/dL (3.2-5.0); Alkaline Phosphatase 66 U/L (45-117); Anion Gap 10 (5-15); BUN 75 mg/dL (7-18); Calcium,Total 8.2 mg/dL (8.5-10.1); Chloride 103 mmol/L (98-107); EST Glomerular Filtration Rate 7 mL/min (>60); Est Glom Filt Rate - Afr Amer 8 mL/min (>60); Estimated Creatinine Clearance 7.53 ml/min; Globulin 2.9 g/dL (2.2-4.2); Glucose 103 mg/dL (74-106); Potassium 4.2 mmol/L (3.5-5.1); Protein, Total 5.7 g/dL (6.4-8.2); Sodium Level 136 mmol/L (136-145)
[2023-06-19 04:58] LABS: Thyroid Stim Hormone (TSH) 4.25 uIU/mL (0.358-3.74)
[2023-06-19] MEDS: Norepinephrine 8 MG in 0.9% Normal Saline (250mL Bag) 242 ML 9.40000000000000036 MG CONT INF (05:03)
[2023-06-19] MEDS: 0.9% Normal Saline (1000mL) 1,000 ML 75 ML IV ×2 (05:05→17:11)
[2023-06-19 05:08] LABS: Lactic Acid 0.7 mmol/L (0.4-1.9)
[2023-06-19 05:13] LABS: Troponin-I HS 297 pg/mL (3.0-78.0)
[2023-06-19 05:51] LABS: Platelet Estimate MOD DEC (ADEQ)
[2023-06-19 06:28] LABS: Phosphorus 5.7 mg/dL (2.5-4.9)
[2023-06-19 06:58] LABS: Troponin-I HS 222 pg/mL (3.0-78.0)
--- NOTE | 2023-06-19 07:37 | PCM.PN.HOSP ---
Reason for Visit Reason for Visit: Diagnoses Methicillin susceptible Staphylococcus aureus infection as the cause of diseases classified elsewhere (06/17/23) Thrombocytopenia, unspecified (06/17/23) End stage renal disease (06/17/23) Fever, unspecified (06/17/23) Bacteremia (06/17/23) Objective Data Objective Data Vital Signs: Vital Signs Temp Pulse Resp BP Pulse Ox O2 Del Method O2 Flow Rate 98.7 F 70 18 151/67 H 94 Nasal Cannula 2 06/19/23 06:00 06/19/23 07:17 06/19/23 07:17 06/19/23 06:00 06/19/23 07:17 06/19/23 07:17 06/19/23 07:17 Oxygen Flow Rate (L/min) 2 Oxygen Delivery Method Nasal Cannula Weight: 189 lb 2.506 oz Body Mass Index (BMI) 25.6 Intake & Output: Intake and Output for Last 24 Hours 06/17/23 06/18/23 06/19/23 23:59 23:59 23:59 Intake Total 1640 / 1640 3357.5 / 3357.5 1150.18 / 1150.18 Output Total 75 / 475 800 / 800 Balance 1565 / 1165 2557.5 / 2557.5 1150.18 / 1150.18 Lab / Micro Data 06/19/23 04:10 06/19/23 04:10 Labs: Laboratory Results - last 24 hr 06/18/23 11:01: POC Glucose 155 H 06/18/23 15:18: MRSA (PCR) Negative 06/18/23 17:02: POC Glucose 133 H 06/18/23 20:00: POC Glucose 231 H 06/19/23 04:10: WBC 7.4, RBC 1.96 L, Hgb 6.6 L, Hct 21.4 L, MCV 109.2 H, MCH 33.7 H, MCHC 30.8 L, RDW Std Deviation 59.1 H, RDW Coeff of Chloe 14.8 H, Plt Count 71 L, MPV 9.3, Immature Gran % (Auto) 0.700, Neut % (Auto) 74.1 H, Lymph % (Auto) 14.2 L, [place] % (Auto) 9.8, Eos % (Auto) 0.9, Baso % (Auto) 0.3, Absolute Neuts (auto) 5.5, Absolute Lymphs (auto) 1.05, Nucleated RBC % 0, Platelet Estimate MOD DEC, Sodium 136, Potassium 4.2, Chloride 103, Carbon Dioxide 23.0, Anion Gap 10, BUN 75 H, Creatinine 8.30 H*, Estim Creat Clear Calc 7.53, Est GFR (MDRD) Af Amer 8 L, Est GFR (MDRD) Non-Af 7 L, BUN/Creatinine Ratio 9.0 L, Glucose 103, Lactic Acid 0.7, Calcium 8.2 L, Phosphorus 5.7 H, Magnesium 2.0, Total Bilirubin 0.70, AST 17, ALT 24, Alkaline Phosphatase 66, Total Protein 5.7 L, Albumin 2.8 L, Globulin 2.9, Albumin/Globulin Ratio 1.0, TSH 4.25 H 06/19/23 04:23: Troponin I High Sens 297 H* 06/19/23 06:10: Troponin I High Sens 222 H* Micro: Microbiology 06/17/23 14:22 Blood Culture (Wb) - Anticubital Right Bacteria Detection (PCR) - Final Staphylococcus aureus mecA Resistance Marker 06/17/23 14:22 Blood Culture (Wb) - Anticubital Right Blood Culture - Preliminary 06/17/23 14:34 Blood Culture (Wb) - Right Forearm Blood Culture - Preliminary 06/17/23 14:22 Mucosa - Nose SARS-CoV-2, Influenza & RSV (PCR) - Final Rhythm Strip Rhythm Strip: Sinus Rhythm Rate: 84 Ectopy: None Physical Exam Narrative Seen and examined. Patient is fatigue, mild short of breath. Problem in sitting up from laying down position. On hemodialysis. Patient has severe anemia hemoglobin 6.6 and severe thrombocytopenia, platelet count 72,000. Physical exam General: Awake oriented x3, Cooperative HEENT: Atraumatic, PERRLA, EOMI, Normocephalic Oral: No Gingival or Mucosal Lesions/ Ulcerations Neck: Supple, No JVD, Negative Carotid Bruits Chest wall/Lungs: Air entry diminished in bilateral lung bases. Mild expiratory rhonchi Cardiovascular: Regular rate, Regular Rhythm, Normal S1, Normal S2, No M/G/R Abdomen: Bowel Sounds Present, Soft, Non Tender, Non-Distended : Has Palomo catheter in small yellowish urine in the bag. No renal angle tenderness. No suprapubic tenderness. Extremities: No edema, Capillary Refill Less than 3 Seconds Skin: No rashes, No breakdown Musculoskeletal: No Tenderness to Palpation of Joints or Extremities Neurological: Cranial nerves II-XII grossly intact, DTR 2+/4. No acute focal neurological deficit. Psych/Mental Status: Flat affect. Assessment & Plan Assessment/Plan (1) Staphylococcus aureus bacteremia: (2) Thrombocytopenia: (3) Fever: PLAN: Plan This is a 82-year-old gentleman admitted from [facility] with altered mental status and fever. Was admitted with suspected line infection. 1. Gram-positive cocci in clusters bacteremia--> due to MRSA -Patient does not meet sepsis criteria per Sep 3 protocol as there was no identifiable endorgan damage -2 of 2 blood cultures already showing gram-positive cocci in clusters -Fever curve seems to be improving -White count is slightly better -Suspect source is right-sided permacath -Initially on vancomycin and Zosyn but ID saw the patient and discontinued Zosyn. TTE showed no vegetation. Patient also has some new low back pain and MRI ordered. General surgery is following and plan to remove abdominal dialysis cath after 48 hours of discontinuation of Eliquis.Had last dose on 06/18/2023 at about 8 PM Toxic/metabolic encephalopathy -Likely related to the above -Should improve back to baseline with treatment of underlying disease Thrombocytopenia -Appears that his platelet counts fluctuate and are never that robust -Slight drop overnight however may be related to fluids and sepsis -Repeat CBC in a.m. Leukocytosis -See above Chronic anemia secondary to chronic renal disease -Hemoglobin is stable -Okay to continue apixaban -Monitor End-stage renal disease -HD dependent -Continue calcitriol -Continue phosphate binder -Nephrology consult--> discussed with Dr. Weber and we are okay to remove his tunneled dialysis catheter at this time as his fistula is working well CAD/HTN/HPL -Previous cardiac catheterization done at [facility] that showed left main coronary with minimal irregularities ramus intermedius with 95% stenosis after being occluded, left anterior descending artery with a long tubular 80% stenosis with calcification and a left circumflex artery with a mid segment which was calcified the proximal with a 40% stenosis and a medium caliber bifurcating lateral branch that has an ostial 90% stenosis. He also has a right coronary artery which had a 75% stenosis in the midsegment had a long tubular 60% stenosis -For this, CABG was considered but medical therapy was ultimately recommended -Continue atorvastatin -Hold Bumex -Hold isosorbide mononitrate Atrial fibrillation -Patient is not on any rate controlling medication -Continue home apixaban -Previous documentation indicates a pacemaker was recommended at some point but he declined and was recommended to avoid AV larry blocking agents due to bradycardic events PVD -Recent aortogram with right lower extremity runoff on 05/31/2023 -Continue outpatient follow-up with vascular medicine -Continue management for secondary risk factors Diabetic neuropathy -Continue home gabapentin History of DM-2 -Patient had a normal hemoglobin A1c on 05/16/2023 at 4.8 with minimal anemia -Would recommend discontinuation of his glipizide as an outpatient -No need for SSI or Accu-Cheks COPD -Patient does not appear to be on any inhalers at baseline -As needed albuterol -As needed guaifenesin DVT prophylaxis -continue home apixaban CODE STATUS -DNR CCA with no intubation per documentation from the nursing facility Charges/Coding Visit Charges Inpatient E&M: 50791 Subs Hosp L3
--- NOTE | 2023-06-19 08:33 | WOUNDNOTE ---
Was consulted on patient. no wounds noted. patient does have some dry skin to feet, but not bad. washed legs and feet with soap and water. pat dry. applied petroleum to the dry skin. no need for wound care at this time.
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
[2023-06-19] MEDS: Calcium Acetate 667 MG Capsule 1334 MG PO ×2 (09:46→17:01)
[2023-06-19] MEDS: Calcitriol 0.25 MCG Capsule 0.5 MCG PO (09:47)
[2023-06-19] MEDS: guaiFENesin 600 MG Tablet PO ×2 (09:51→21:13)
[2023-06-19] MEDS: Piperacil/Tazobactam 3.375 GM in 0.9% Normal Saline (50mL MB+) 50 ML IV (09:54)
[2023-06-19 10:37] LABS: Troponin-I HS 223 pg/mL (3.0-78.0)
[2023-06-19] MEDS: 0.9% Normal Saline 1,000 ML IV.SOLN. 1000 ML OPERA.SITE (11:40)
[2023-06-19] MEDS: PureFlow B 3K Dialysis Soln 1 BAG 6 BAG PF (11:41)
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
--- NOTE | 2023-06-19 12:26 | CASEMGMT ---
Addendum entered by Claudine Gamboa 06/19/23 12:42: Patient is currently private pay at [facility] and will need precert to return skilled. Claudine Gamboa, Discharge Planning Asst. Original Note: [place] Planning Updates sent to [facility] via [employer]. Asked if precert will be needed. Awaiting response. Claudine Gamboa, Discharge Planning Asst.
[2023-06-19 12:48] LABS: Bedside Glucose 100 mg/dL (74-106)
[2023-06-19] MEDS: Vancomycin HCl 750 MG in 0.9% Normal Saline (250mL Bag) 250 ML 250 MG IV (14:45)
--- NOTE | 2023-06-19 14:58 | CASEMGMT ---
Social Work SW placed phone call to pt's dgt Audrey Alicea. Audrey confirms discharge plan for pt to return to [facility] when ready for discharge. SW inquired about advance directives. Audrey states that a copy is on file at [facility]. Message sent to [facility] to check on advance directives there. If they do not have documents, SW can contact [facility]. Plan: [facility], precert will need if pt is to return MOY Ridley
[2023-06-19 15:59] LABS: Bedside Glucose 112 mg/dL (74-106)
--- NOTE | 2023-06-19 16:05 | CASEMGMT ---
Social Work SW spoke with [facility] and a copy of pts living will and health care POA naming his daughter Audrey Alicea was obtained and placed on pts chart. MOY Roldan
--- NOTE | 2023-06-19 16:11 | CON.PCM.ID_ITS ---
Assessment & Plan Assessment/Plan (1) MRSA bacteremia: PLAN: Fever and leukocytosis resolved. Repeat bcx pending. MRSA seen on pcr. HD cath removal planned. TTE showed no veg. Having some new low back pain, will order MRI. Cont vanc, will stop zosyn. Will follow, thank you (2) End stage chronic kidney disease: HPI Consult Data Date of Consult: 06/19/23 HPI Narrative Reason for Consultation: bacteremia HPI Narrative: LAILA HARLEY, is a 82 M with ESRD, presented from [facility] 06/16 with acute onset altered mental status, fever, chills. Admitted to icu, on vanc/zosyn. Feeling ok but c/o low back pain for past 2-3 days. No issues with HD cath. No n/v/d. No r ecent skin infections. Full ROS performed and neg except as noted above. [facility] Medical History Atherosclerotic heart disease of [place] coronary artery without angina pectoris COPD (chronic obstructive pulmonary disease) Encephalopathy Hepatitis A Hepatitis B Hiatal hernia with GERD without esophagitis Hyperlipidemia Muscle weakness TWYLA (obstructive sleep apnea) Rhabdomyolysis Secondary hyperparathyroidism Home Medications apixaban 2.5 mg tablet (Eliquis) 2.5 mg PO BID 02/23/23 [History Last Taken 05/30/23] atorvastatin 40 mg tablet 40 mg PO QHS 02/23/23 [History Last Taken Unknown] bumetanide 2 mg tablet 2 mg PO DAILY 02/23/23 [History Last Taken Unknown] calcium acetate(phosphat bind) 667 mg capsule 1,334 mg PO TID 02/23/23 [History Last Taken Unknown] glipizide 2.5 mg tablet 2.5 mg PO BID 02/23/23 [History Last Taken 05/30/23] isosorbide mononitrate 30 mg tablet,extended release 24 hr 30 mg PO DAILY 02/23/23 [History Last Taken Unknown] vitamin B complex-vitamin C-folic acid 0.8 mg tablet (Julieta-Luis) 1 tab PO DAILY 02/23/23 [History Last Taken Unknown] calcitriol 0.5 mcg capsule 0.5 mcg PO MOWEFR 04/20/23 [History Last Taken Unknown] acetaminophen 325 mg capsule 650 mg PO Q4H PRN fever 06/17/23 [History Last Taken Unknown] acetaminophen 650 mg rectal suppository 650 mg IN Q4H PRN fever 06/17/23 [History Last Taken Unknown] aluminum-mag hydroxide-simethicone 200 mg-200 mg-20 mg/5 mL oral susp (Antacid M) 30 ml PO Q4H PRN GI DISTRESS 06/17/23 [History Last Taken Unknown] bisacodyl 10 mg rectal suppository (Dulcolax (bisacodyl)) 10 mg IN DAILY PRN constipation 06/17/23 [History Last Taken Unknown] dextrose 40 % oral gel (Glucose Gel) 10 g PO Q15M PRN hypoglycemia 06/17/23 [History Last Taken Unknown] diclofenac sodium 1 % topical gel 2 g topical QHS PRN pain 06/17/23 [History Last Taken Unknown] gabapentin 100 mg capsule 100 mg PO BID NERVE PAIN 06/17/23 [History Last Taken Unknown] glucagon HCl 1 mg solution for injection (Glucagon (HCl) Emergency Kit) 1 mg IM PRN PRN hypoglycemia 06/17/23 [History Last Taken Unknown] guaifenesin 100 mg/5 mL oral liquid (Adult Tussin Chest Congestion) 200 mg PO Q4H PRN COUGH/CONGESTION 06/17/23 [History Last Taken Unknown] nystatin 100,000 unit/gram topical cream 1 applic topical Q8H PRN GROIN IRRITATION 06/17/23 [History Last Taken Unknown] ondansetron HCl 4 mg tablet 4 mg PO Q8H PRN nausea and vomiting 06/17/23 [History Last Taken Unknown] sodium phosphates 19 gram-7 gram/118 mL enema (Enema) 118 ml IN DAILY PRN constipation 06/17/23 [History Last Taken Unknown] tramadol 50 mg tablet 50 mg PO Q12H PRN TOE PAIN 06/17/23 [History Last Taken Unknown] Allergy/AdvReac Type Severity Reaction Status Date / Time No Known Allergies Allergy Verified 04/20/23 15:24 Family History no significant family his Social History housing: halfway Smoking Status: Never smoker Physical Exam Const no apparent distress General Appearance: cooperative and lethargic HEENT normocephalic and head/scalp atraumatic Eyes PERRL and EOMs intact bilaterally Neck supple and No nodes Resp normal air movement and clear to auscultation bilaterally Cardio Rate: bradycardia Heart Sounds: murmur GI soft to palpation, non-tender and non-distended Extremity Extremity Narrative: No focal joint swelling/pain in arms or legs. Mild lumbar tenderness General Extremity: edema Skin no rashes or lesions noted Skin Narrative: R chest HD cath nontender. No splinter hemorrhages on hands or feet. Neuro CN's II-XII intact bilaterally Lab / Micro Data Attestation: I reviewed the patient's lab results. 06/19/23 04:10 06/19/23 04:10 Labs: Laboratory Results - last 24 hr 06/18/23 15:18: MRSA (PCR) Negative 06/18/23 17:02: POC Glucose 133 H 06/18/23 20:00: POC Glucose 231 H 06/19/23 04:10: WBC 7.4, RBC 1.96 L, Hgb 6.6 L, Hct 21.4 L, MCV 109.2 H, MCH 33.7 H, MCHC 30.8 L, RDW Std Deviation 59.1 H, RDW Coeff of Chloe 14.8 H, Plt Count 71 L, MPV 9.3, Immature Gran % (Auto) 0.700, Neut % (Auto) 74.1 H, Lymph % (Auto) 14.2 L, Major % (Auto) 9.8, Eos % (Auto) 0.9, Baso % (Auto) 0.3, Absolute Neuts (auto) 5.5, Absolute Lymphs (auto) 1.05, Nucleated RBC % 0, Platelet Estimate MOD DEC, Sodium 136, Potassium 4.2, Chloride 103, Carbon Dioxide 23.0, Anion Gap 10, BUN 75 H, Creatinine 8.30 H*, Estim Creat Clear Calc 7.53, Est GFR (MDRD) Af Amer 8 L, Est GFR (MDRD) Non-Af 7 L, BUN/Creatinine Ratio 9.0 L, Glucose 103, Lactic Acid 0.7, Calcium 8.2 L, Phosphorus 5.7 H, Magnesium 2.0, Total Bilirubin 0.70, AST 17, ALT 24, Alkaline Phosphatase 66, Total Protein 5.7 L, Albumin 2.8 L, Globulin 2.9, Albumin/Globulin Ratio 1.0, TSH 4.25 H 06/19/23 04:23: Troponin I High Sens 297 H* 06/19/23 06:10: Troponin I High Sens 222 H* 06/19/23 08:50: Blood Type O POSITIVE, Antibody Screen NEGATIVE, Crossmatch See Detail 06/19/23 09:44: POC Glucose 100 06/19/23 10:10: Troponin I High Sens 223 H* 06/19/23 12:17: POC Glucose 112 H Micro: Microbiology 06/19/23 15:00 Stool Clostridioides difficile (PCR) - Final 06/18/23 08:27 Blood Culture (Wb) - Right Wrist Blood Culture - Preliminary 06/17/23 14:53 Urine, Catheterized Urine Culture - Final Culture exhibits no growth. 06/17/23 14:34 Blood Culture (Wb) - Right Forearm Blood Culture - Preliminary Staphylococcus aureus 06/17/23 14:22 Blood Culture (Wb) - Anticubital Right Bacteria Detection (PCR) - Final Staphylococcus aureus mecA Resistance Marker 06/17/23 14:22 Blood Culture (Wb) - Anticubital Right Blood Culture - Preliminary Staphylococcus aureus Rhythm Strip Rhythm Strip: Sinus Rhythm Rate: 84 Ectopy: None Imaging Radiology Impression Echocardiogram 06/18/23 08:09 Interpretation Summary Moderate concentric left ventricular hypertrophy. The left ventricular ejection fraction is 65 %. At least stage II diastolic dysfunction The left atrium is moderately enlarged. The right atrium is mildly enlarged. Mild-Moderate (1-2+) mitral valve insufficiency. Moderate (2+) tricuspid valve insufficiency. Right ventricular systolic pressure estimated to be 55 mmHg. Mild aortic stenosis. No vegetations noted on this surface echocardiogram. Please consider ABBI for further evaluation if clinically indicated. Ordering Physician: Christine Dallas Referring Physician: Gurpreet Prajapati Performed By: Manasa Barnett RDCS
--- NOTE | 2023-06-19 16:15 | MRI_ITS ---
STUDY: MRI LUMBAR SPINE WITHOUT CONTRAST REASON FOR EXAM: Male, 82 years old. lower back pain, bacteremia -- noncontrast TECHNIQUE: Standardized fat and water weighted pulse sequences were obtained in the sagittal and axial planes. COMPARISON: None FINDINGS: T12-L1: Normal endplates. Normal disc height, hydration and morphology. Normal bilateral facet joints. Normal central canal and bilateral lateral recesses. Normal bilateral intervertebral neural foramina. Normal lumbar lordosis. There is no substantial scoliosis. Normal conus medullaris that terminates at T12 L1-2: Mild anterior endplate spurring.. Normal disc height, desiccation and minimal annular bulge. Normal bilateral facet joints. Normal central canal and bilateral lateral recesses. Normal bilateral intervertebral neural foramina. L2-3: Normal endplates. Normal disc height, desiccation and normal morphology. Mild facet arthropathy and thickening of ligamenta flava. Normal central canal and bilateral lateral recesses. Moderate bilateral neural foraminal stenosis L3-4: Normal endplates. Normal disc height, desiccation mild annular bulge.. Facet arthropathy and thickening of ligamenta flava. Normal central canal and bilateral lateral recesses. Moderate to severe bilateral neural foraminal stenosis exaggerated by shortened pedicles L4-5: Anterior endplate spurring Narrowed disc space and normal hydration of the disc with mild right foraminal osteophyte protrusion.. Facet arthropathy and thickening of ligamenta flava. Normal central canal and bilateral lateral recesses. Severe right neural foraminal stenosis and moderate narrowing on the left. L5-S1: Anterior endplate spurring. Grade 1 spondylolisthesis. Narrowed disc space with desiccation of the disc and minor bulging disc osteophyte complex with right foraminal disc protrusion and left paracentral disc/osteophyte protrusion compressing and displacing the descending left S1 nerve root.. Mild facet arthropathy.. Normal central canal and bilateral lateral recesses. Severe right neural foraminal stenosis and mild narrowing on the left Normal visualized sacral ala. Normal visualized paraspinous soft tissue structures. MRI/Spine Lumbar (Routine) IMPRESSION: No evidence for acute fracture or other significant bony pathology Spondylosis and multilevel spinal stenosis secondary to disc disease and bony hypertrophy Findings as above Electronically Signed: Zan Jacobs MD at 20:01 EST ,
[2023-06-19 17:15] LABS: Bedside Glucose 101 mg/dL (74-106)
[2023-06-19] MEDS: Insulin Lispro 100 UNIT/ML INSULN.PEN SC (21:13)
[2023-06-19] MEDS: Atorvastatin Calcium 40 MG Tablet PO (21:13)
[2023-06-19 21:41] LABS: Bedside Glucose 161 mg/dL (74-106)
[2023-06-20] VITALS (28 sets, daily range): BP systolic 107–136; BP diastolic 49–84; PULSE 51–511; RESP 13–25; TEMP 36–36.9; O2SAT 88–99; BMI 26.6
--- NOTE | 2023-06-20 01:12 | NURSING ---
This RN has continuously reminded patient to keep his oxygen on and his pulse ox on. Patient is refusing to wear oxygen and continuously removing ear pulse ox.
[2023-06-20] MEDS: Albuterol 2.5 MG/3 ML VIAL.NEB. INHALATION (02:08)
[2023-06-20] MEDS: 0.9% Normal Saline (1000mL) 1,000 ML 75 ML IV ×2 (06:31→19:51)
[2023-06-20] MEDS: 0.9% Saline Lock 10 ML Syringe IV (07:07)
[2023-06-20] MEDS: Calcium Acetate 667 MG Capsule 1334 MG PO ×3 (08:37→16:54)
[2023-06-20] MEDS: guaiFENesin 600 MG Tablet PO ×2 (08:37→20:53)
--- NOTE | 2023-06-20 11:19 | PN.SURG_ITS ---
Subjective Subjective Patient has no complaints. CBC was not drawn today?ordered as platelets were lower yesterday at 71. Objective Data Objective Data Vital Signs: Vital Signs Temp Pulse Resp BP Pulse Ox O2 Del Method O2 Flow Rate 96.8 F L 71 15 114/53 L 94 Nasal Cannula 2 06/20/23 08:40 06/20/23 08:57 06/20/23 08:57 06/20/23 08:57 06/20/23 09:04 06/20/23 09:04 06/20/23 09:04 Oxygen Flow Rate (L/min) 2 Oxygen Delivery Method Nasal Cannula Weight: 196 lb 13.965 oz Body Mass Index (BMI) 26.6 Intake & Output: Intake and Output for Last 24 Hours 06/18/23 06/19/23 06/20/23 23:59 23:59 23:59 Intake Total 3357.5 / 3357.5 2874.08 / 3074.08 1200 / 1200 Output Total 800 / 800 100 / 100 50 / 50 Balance 2557.5 / 2557.5 2774.08 / 2974.08 1150 / 1150 Lab / Micro Data 06/19/23 04:10 06/19/23 04:10 Labs: Laboratory Results - last 24 hr 06/19/23 08:50: Crossmatch See Detail 06/19/23 09:44: POC Glucose 100 06/19/23 12:17: POC Glucose 112 H 06/19/23 16:54: POC Glucose 101 06/19/23 21:09: POC Glucose 161 H Micro: Microbiology 06/18/23 08:27 Blood Culture (Wb) - Right Wrist Blood Culture - Final Staphylococcus aureus 06/18/23 08:33 Blood Culture (Wb) - Right Hand Blood Culture - Final Staphylococcus aureus 06/17/23 14:34 Blood Culture (Wb) - Right Forearm Blood Culture - Final Staphylococcus aureus 06/19/23 04:00 Blood Culture (Wb) - Right Hand Blood Culture - Preliminary No growth in 48 hours. 06/19/23 04:00 Blood Culture (Wb) - Right Wrist Blood Culture - Preliminary No growth in 48 hours. 06/17/23 14:22 Blood Culture (Wb) - Anticubital Right Bacteria Detection (PCR) - Final Staphylococcus aureus mecA Resistance Marker 06/17/23 14:22 Blood Culture (Wb) - Anticubital Right Blood Culture - Final Meth. resistant Staph. aureus 06/19/23 15:00 Stool Clostridioides difficile (PCR) - Final 06/17/23 14:53 Urine, Catheterized Urine Culture - Final Culture exhibits no growth. 06/17/23 14:22 Mucosa - Nose SARS-CoV-2, Influenza & RSV (PCR) - Final Radiography Diagnostic Testing: Radiology Impression Echocardiogram 06/18/23 08:09 Interpretation Summary Moderate concentric left ventricular hypertrophy. The left ventricular ejection fraction is 65 %. At least stage II diastolic dysfunction The left atrium is moderately enlarged. The right atrium is mildly enlarged. Mild-Moderate (1-2+) mitral valve insufficiency. Moderate (2+) tricuspid valve insufficiency. Right ventricular systolic pressure estimated to be 55 mmHg. Mild aortic stenosis. No vegetations noted on this surface echocardiogram. Please consider ABBI for further evaluation if clinically indicated. Ordering Physician: Christine Dallas Referring Physician: Gurpreet Prajapati Performed By: Manasa Barnett RDCS Lumbar Spine MRI 06/19/23 16:15 IMPRESSION: No evidence for acute fracture or other significant bony pathology Spondylosis and multilevel spinal stenosis secondary to disc disease and bony hypertrophy Findings as above Electronically Signed: Zan Jacobs MD at 20:01 EST Reading Location ID and State: [address] [place] [address] Tel , Service support , Rhythm Strip Rhythm Strip: Sinus Rhythm Rate: 84 Ectopy: None Physical Exam Const General Appearance: cooperative Neck Neck Narrative: Tunneled right IJ dialysis catheter in place no signs of infection Resp normal respiratory effort Cardio Rate: regular rate Bladder / Kidney Exam: catheter in place Skin no rashes or lesions noted and no jaundice Assessment & Plan Assessment/Plan (1) Staphylococcus aureus bacteremia: (2) Fever: (3) Thrombocytopenia: (4) End stage chronic kidney disease: PLAN: Plan Will plan to remove patient's tunneled dialysis catheter at bedside; however patient had his Eliquis Monday night will not remove till may be Monday- probably -- along with patient's platelets were 71 yesterday?ordered today we will continue to monitor. Continue antibiotics per ID Mitzy Owen M.D. Pager: [phone] [facility] [address] [place] [address], [facility], [address] [place] [address] Office: [phone] Charges/Coding Visit Charges Inpatient E&M: 54383 Subs Hosp L2
[2023-06-20 11:44] LABS: Absolute Lymphocyte Count 0.75 X10^3/uL (0.83-4.51); Absolute Neutrophil Count 5.8 X10^3/uL (2.0-7.7); Basophil# 0.04 X10^3/uL; Basophil% 0.6 % (0-1); Eosinophil# 0.11 X10^3/uL; Eosinophils% 1.5 % (0-5); Hematocrit 31.6 % (40-54); Hemoglobin 10.1 g/dL (13.0-16.5); Lymphocyte # 0.75 X10^3/ul (0.83-4.51); Lymphocyte % 10.4 % (19-41); Mean Corpuscular Hgb 32.9 pg (27.0-32.0); Mean Corpuscular Volume 102.9 fL (80-94); Mean Platelet Vol. 10.3 fl (6.2-12.0); Monocyte# 0.48 X10^3/uL; Monocyte% 6.7 % (0-10); NRBC Flagged by Analyzer 0 % (0-5); Neutrophil # 5.76 X10^3/uL (2.7-7.7); POSITIVE COUNT YES; POSITIVE MORPHOLOGY YES; Platelet Count 83 K/mm3 (150-450); RBC Distribution Width CV 17.7 % (11.6-14.6); RBC Distribution Width SD 66.9 fl (35.1-43.9); Red Blood Count 3.07 M/mm3 (4.6-6.2); White Blood Count 7.2 K/mm3 (4.4-11.0)
[2023-06-20 11:44] LABS: Bedside Glucose 117 mg/dL (74-106)
[2023-06-20 11:45] LABS: Differential Indicated SCAN CRITERIA MET
--- NOTE | 2023-06-20 12:12 | PN.HOSP_ITS ---
Reason for Visit Reason for Visit: Diagnoses Methicillin susceptible Staphylococcus aureus infection as the cause of diseases classified elsewhere (06/17/23) Methicillin resistant Staphylococcus aureus infection as the cause of diseases classified elsewhere (06/17/23) Thrombocytopenia, unspecified (06/17/23) End stage renal disease (06/17/23) Fever, unspecified (06/17/23) Bacteremia (06/17/23) Objective Data Objective Data Vital Signs: Vital Signs Temp Pulse Resp BP Pulse Ox O2 Del Method O2 Flow Rate 96.8 F L 71 15 114/53 L 94 Nasal Cannula 2 06/20/23 08:40 06/20/23 08:57 06/20/23 08:57 06/20/23 08:57 06/20/23 09:04 06/20/23 09:04 06/20/23 09:04 Oxygen Flow Rate (L/min) 2 Oxygen Delivery Method Nasal Cannula Weight: 196 lb 13.965 oz Body Mass Index (BMI) 26.6 Intake & Output: Intake and Output for Last 24 Hours 06/18/23 06/19/23 06/20/23 23:59 23:59 23:59 Intake Total 3357.5 / 3357.5 2874.08 / 3074.08 1200 / 1200 Output Total 800 / 800 100 / 100 50 / 50 Balance 2557.5 / 2557.5 2774.08 / 2974.08 1150 / 1150 Lab / Micro Data 06/20/23 11:25 06/19/23 04:10 Labs: Laboratory Results - last 24 hr 06/19/23 08:50: Crossmatch See Detail 06/19/23 09:44: POC Glucose 100 06/19/23 12:17: POC Glucose 112 H 06/19/23 16:54: POC Glucose 101 06/19/23 21:09: POC Glucose 161 H 06/20/23 11:24: POC Glucose 117 H 06/20/23 11:25: WBC 7.2, RBC 3.07 L, Hgb 10.1 L, Hct 31.6 L, MCV 102.9 H D, MCH 32.9 H, MCHC 32.0, RDW Std Deviation 66.9 H, RDW Coeff of Chloe 17.7 H, Plt Count 83 L, MPV 10.3, Immature Gran % (Auto) 0.800, Neut % (Auto) 80.0 H, Lymph % (Auto) 10.4 L, [place] % (Auto) 6.7, Eos % (Auto) 1.5, Baso % (Auto) 0.6, Absolute Neuts (auto) 5.8, Absolute Lymphs (auto) 0.75 L, Nucleated RBC % 0 Micro: Microbiology 06/18/23 08:27 Blood Culture (Wb) - Right Wrist Blood Culture - Final Staphylococcus aureus 06/18/23 08:33 Blood Culture (Wb) - Right Hand Blood Culture - Final Staphylococcus aureus 06/17/23 14:34 Blood Culture (Wb) - Right Forearm Blood Culture - Final Staphylococcus aureus 06/19/23 04:00 Blood Culture (Wb) - Right Hand Blood Culture - Preliminary No growth in 48 hours. 06/19/23 04:00 Blood Culture (Wb) - Right Wrist Blood Culture - Preliminary No growth in 48 hours. 06/17/23 14:22 Blood Culture (Wb) - Anticubital Right Bacteria Detection (PCR) - Final Staphylococcus aureus mecA Resistance Marker 06/17/23 14:22 Blood Culture (Wb) - Anticubital Right Blood Culture - Final Meth. resistant Staph. aureus 06/19/23 15:00 Stool Clostridioides difficile (PCR) - Final 06/17/23 14:53 Urine, Catheterized Urine Culture - Final Culture exhibits no growth. 06/17/23 14:22 Mucosa - Nose SARS-CoV-2, Influenza & RSV (PCR) - Final Radiography Diagnostic Testing: Radiology Impression Lumbar Spine MRI 06/19/23 16:15 IMPRESSION: No evidence for acute fracture or other significant bony pathology Spondylosis and multilevel spinal stenosis secondary to disc disease and bony hypertrophy Findings as above Electronically Signed: Zan Jacobs MD at 20:01 EST Reading Location ID and State: [facility] / [place] Tel , Service support , Rhythm Strip Rhythm Strip: Sinus Rhythm Rate: 84 Ectopy: None Physical Exam Narrative Seen and examined. Patient is fatigue, mild short of breath. Problem in sitting up from laying down position. On hemodialysis. Patient had PRBC transfusion, hemoglobin improved to 10.1/31%. Platelet count 83,000. Physical exam General: Awake oriented x3, Cooperative HEENT: Atraumatic, PERRLA, EOMI, Normocephalic Oral: No Gingival or Mucosal Lesions/ Ulcerations Neck: Supple, No JVD, Negative Carotid Bruits Chest wall/Lungs: Air entry diminished in bilateral lung bases. Inspiratory effort is decreased with weak cough reflex. Mild expiratory rhonchi Cardiovascular: Irregular rhythm, A-fib, Normal S1, Normal S2, No M/G/R Abdomen: Bowel Sounds Present, Soft, Non Tender, Non-Distended : On hemodialysis. Has Palomo catheter in small yellowish urine in the bag. No renal angle tenderness. No suprapubic tenderness. Extremities: No edema, Capillary Refill Less than 3 Seconds Skin: No rashes, No breakdown Musculoskeletal: No Tenderness to Palpation of Joints or Extremities Neurological: Cranial nerves II-XII grossly intact, DTR 2+/4. No acute focal neurological deficit. Psych/Mental Status: Flat affect. Assessment & Plan Assessment/Plan (1) Staphylococcus aureus bacteremia: (2) Thrombocytopenia: (3) Fever: PLAN: Plan This is a 82-year-old gentleman admitted from [facility] with altered mental status and fever. Was admitted with suspected line infect ion. 1. Gram-positive cocci in clusters bacteremia--> due to MRSA -Patient does not meet sepsis criteria per Sep 3 protocol as there was no identifiable endorgan damage -2 of 2 blood cultures already showing gram-positive cocci in clusters -Fever curve seems to be improving -White count is slightly better -Suspect source is right-sided permacath -Initially on vancomycin and Zosyn but ID saw the patient and discontinued Zosyn. TTE showed no vegetation. Patient also has some new low back pain and MRI ordered. General surgery is following and plan to remove abdominal dialysis cath after 48 hours of discontinuation of Eliquis.Had last dose on 06/18/2023 at about 8 PM 06/19: Last blood culture from 06/17 growing Staph aureus,, MRSA. Possible removal of tunneled venous catheter tomorrow as he will complete 48 hours of discontinuation of Eliquis. Hemoglobin and thrombocytopenia are better. Toxic/metabolic encephalopathy -Likely related to the above -Should improve back to baseline with treatment of underlying disease Thrombocytopenia -Appears that his platelet counts fluctuate and are never that robust -Slight drop overnight however may be related to fluids and sepsis 06/19: Repeat platelet count is 83,000. H&H 10.1/31%. Chronic anemia secondary to chronic renal disease -Hemoglobin is stable -Okay to continue apixaban Please see above End-stage renal disease -HD dependent -Continue calcitriol -Continue phosphate binder -Nephrology consult--> discussed with Dr. Weber and we are okay to remove his tunneled dialysis catheter at this time as his fistula is working well 06/19: Will need at least 48 hours for Eliquis to get metabolized from the body before the procedure. But his platelet counts are also low. CAD/HTN/HPL -Previous cardiac catheterization done at [facility] that showed left main coronary with minimal irregularities ramus intermedius with 95% stenosis after being occluded, left anterior descending artery with a long tubular 80% stenosis with calcification and a left circumflex artery with a mid segment which was calcified the proximal with a 40% stenosis and a medium caliber bifurcating lateral branch that has an ostial 90% stenosis. He also has a right coronary artery which had a 75% stenosis in the midsegment had a long tubular 60% stenosis -For this, CABG was considered but medical therapy was ultimately recommended -Continue atorvastatin -Hold Bumex -Hold isosorbide mononitrate Atrial fibrillation -Patient is not on any rate controlling medication -Continue home apixaban -Previous documentation indicates a pacemaker was recommended at some point but he declined and was recommended to avoid AV larry blocking agents due to bradycardic events PVD -Recent aortogram with right lower extremity runoff on 05/31/2023 -Continue outpatient follow-up with vascular medicine -Continue management for secondary risk factors Diabetic neuropathy -Continue home gabapentin History of DM-2 -Patient had a normal hemoglobin A1c on 05/16/2023 at 4.8 with minimal anemia -Would recommend discontinuation of his glipizide as an outpatient -No need for SSI or Accu-Cheks COPD -Patient does not appear to be on any inhalers at baseline -As needed albuterol -As needed guaifenesin DVT prophylaxis -continue home apixaban CODE STATUS -DNR CCA with no intubation per documentation from the nursing facility Charges/Coding Visit Charges Inpatient E&M: 66942 Subs Hosp L3
--- NOTE | 2023-06-20 12:22 | PN.RENAL_ITS ---
Subjective Subjective No new complaints. ID note reviewed. MRI spine ordered. Likely plan For catheter removal tomorrow Objective Data Objective Data Vital Signs: Vital Signs Temp Pulse Resp BP Pulse Ox O2 Del Method O2 Flow Rate 96.8 F L 71 15 114/53 L 94 Nasal Cannula 2 06/20/23 08:40 06/20/23 08:57 06/20/23 08:57 06/20/23 08:57 06/20/23 09:04 06/20/23 09:04 06/20/23 09:04 Oxygen Flow Rate (L/min) 2 Oxygen Delivery Method Nasal Cannula Weight: 89.3 kg Body Mass Index (BMI) 26.6 Intake & Output: Intake and Output for Last 24 Hours 06/18/23 06/19/23 06/20/23 23:59 23:59 23:59 Intake Total 3357.5 / 3357.5 2874.08 / 3074.08 1200 / 1200 Output Total 800 / 800 100 / 100 50 / 50 Balance 2557.5 / 2557.5 2774.08 / 2974.08 1150 / 1150 Lab / Micro Data 06/20/23 11:25 06/19/23 04:10 Labs: Laboratory Results - last 24 hr 06/19/23 08:50: Crossmatch See Detail 06/19/23 09:44: POC Glucose 100 06/19/23 12:17: POC Glucose 112 H 06/19/23 16:54: POC Glucose 101 06/19/23 21:09: POC Glucose 161 H 06/20/23 11:24: POC Glucose 117 H 06/20/23 11:25: WBC 7.2, RBC 3.07 L, Hgb 10.1 L, Hct 31.6 L, MCV 102.9 H D, MCH 32.9 H, MCHC 32.0, RDW Std Deviation 66.9 H, RDW Coeff of Chloe 17.7 H, Plt Count 83 L, MPV 10.3, Immature Gran % (Auto) 0.800, Neut % (Auto) 80.0 H, Lymph % (Auto) 10.4 L, [place] % (Auto) 6.7, Eos % (Auto) 1.5, Baso % (Auto) 0.6, Absolute Neuts (auto) 5.8, Absolute Lymphs (auto) 0.75 L, Nucleated RBC % 0 Micro: Microbiology 06/18/23 08:27 Blood Culture (Wb) - Right Wrist Blood Culture - Final Staphylococcus aureus 06/18/23 08:33 Blood Culture (Wb) - Right Hand Blood Culture - Final Staphylococcus aureus 06/17/23 14:34 Blood Culture (Wb) - Right Forearm Blood Culture - Final Staphylococcus aureus 06/19/23 04:00 Blood Culture (Wb) - Right Hand Blood Culture - Preliminary No growth in 48 hours. 06/19/23 04:00 Blood Culture (Wb) - Right Wrist Blood Culture - Preliminary No growth in 48 hours. 06/17/23 14:22 Blood Culture (Wb) - Anticubital Right Bacteria Detection (PCR) - Final Staphylococcus aureus mecA Resistance Marker 06/17/23 14:22 Blood Culture (Wb) - Anticubital Right Blood Culture - Final Meth. resistant Staph. aureus 06/19/23 15:00 Stool Clostridioides difficile (PCR) - Final 06/17/23 14:53 Urine, Catheterized Urine Culture - Final Culture exhibits no growth. 06/17/23 14:22 Mucosa - Nose SARS-CoV-2, Influenza & RSV (PCR) - Final Radiography Diagnostic Testing: Radiology Impression Lumbar Spine MRI 06/19/23 16:15 IMPRESSION: No evidence for acute fracture or other significant bony pathology Spondylosis and multilevel spinal stenosis secondary to disc disease and bony hypertrophy Findings as above Electronically Signed: Zan Jacobs MD at 20:01 EST Reading Location ID and State: [address] [place] [address] Tel , Service support , Rhythm Strip Rhythm Strip: Sinus Rhythm Rate: 84 Ectopy: None Physical Exam Narrative no obvious distress no pallor no icterus no JVD s1s2 no murmurs lungs clear abdomen soft no organomegaly no edema no cyanosis Assessment & Plan Assessment/Plan (1) End stage chronic kidney disease: PLAN: On hemodialysis. For now we will plan to keep hemodialysis on Monday, Monday, Monday schedule. Anemia. Hemoglobin is at goal. He gets long-acting erythropoietin with dialysis in the [facility]. Bacteremia. Repeat blood cultures are negative so far. ID following. MRI spine negative. Right IJ dialysis catheter will likely be removed tomorrow. Palomo catheter can be removed.
[2023-06-20 12:28] LABS: Anisocytosis 1+; Platelet Estimate MOD DEC (ADEQ)
--- NOTE | 2023-06-20 13:55 | PCM.PN.ID ---
Physical Exam Narrative Feeling ok, no fever, no n/v/d. Const alert and no apparent distress Resp normal air movement and clear to auscultation bilaterally Cardio regular rate and regular rhythm GI soft to palpation, non-tender and non-distended Extremity General Extremity: edema Skin no rashes or lesions noted ID ID: Route of nutrition/ use of supplements: [] Nutritional Intake: [] IV Site: [] Palomo Catheter: [] Assessment & Plan Assessment/Plan (1) MRSA bacteremia: PLAN: Fever and leukocytosis resolved. Repeat bcx 06/17 now (+). MRSA seen on pcr. HD cath removal planned. TTE showed no veg. Having some new low back pain, no deeper infection seen on noncontrast MRI. Cont vanc. Will follow (2) End stage chronic kidney disease:
[2023-06-20 16:24] LABS: Bedside Glucose 153 mg/dL (74-106)
[2023-06-20] MEDS: Insulin Lispro 100 UNIT/ML INSULN.PEN SC ×2 (16:54→20:59)
[2023-06-20] MEDS: Atorvastatin Calcium 40 MG Tablet PO (20:53)
[2023-06-20 21:21] LABS: Bedside Glucose 187 mg/dL (74-106)
[2023-06-21] VITALS (34 sets, daily range): BP systolic 121–223; BP diastolic 39–82; PULSE 50–74; RESP 16–28; TEMP 36.3–36.6; O2SAT 92–100; BMI 27.6
--- NOTE | 2023-06-21 04:38 | NURSING ---
This RN has entered patient's room multiple times to put his ECG leads, oxygen, and pulse ox back on. Patient is belligerent and does not want to leave anything on. He is confused and states that he has been kidnapped and that he is leaving. Restraints have been applied in order to monitor the patient appropriately.
[2023-06-21 04:47] LABS: Vancomycin, Random Level 21.4 ug/mL (0.0-15.0)
--- NOTE | 2023-06-21 04:57 | PHA.PHARE_ITS ---
Consult Antibiotic Management Pharmacy has been consulted to manage selected antibiotic: Vancomycin Type of Intervention Type of Consult: Follow-up Suspected Infection Suspected Infection: Bacteremia Labs Labs: Sodium 136 mmol/L (136-145) 06/19/23 04:10 Potassium 4.2 mmol/L (3.5-5.1) 06/19/23 04:10 Chloride 103 mmol/L (98-107) 06/19/23 04:10 Carbon Dioxide 23.0 mmol/L (21.0-32.0) 06/19/23 04:10 Anion Gap 10 (5-15) 06/19/23 04:10 BUN 75 mg/dL (7-18) H 06/19/23 04:10 Creatinine 8.30 mg/dL (0.70-1.30) H* 06/19/23 04:10 Est GFR (MDRD) Af Amer 8 mL/min (>60) L 06/19/23 04:10 Est GFR (MDRD) Non-Af 7 mL/min (>60) L 06/19/23 04:10 BUN/Creatinine Ratio 9.0 RATIO (10-20) L 06/19/23 04:10 Glucose 103 mg/dL (74-106) 06/19/23 04:10 Random Vancomycin 21.4 ug/mL (0.0-15.0) H 06/21/23 04:15 Microbiology Microbiology: Microbiology 06/18/23 08:27 Blood Culture (Wb) - Right Wrist Blood Culture - Final Staphylococcus aureus 06/18/23 08:33 Blood Culture (Wb) - Right Hand Blood Culture - Final Staphylococcus aureus 06/17/23 14:34 Blood Culture (Wb) - Right Forearm Blood Culture - Final Staphylococcus aureus 06/19/23 04:00 Blood Culture (Wb) - Right Hand Blood Culture - Preliminary No growth in 48 hours. 06/19/23 04:00 Blood Culture (Wb) - Right Wrist Blood Culture - Preliminary No growth in 48 hours. 06/17/23 14:22 Blood Culture (Wb) - Anticubital Right Bacteria Detection ( PCR) - Final Staphylococcus aureus mecA Resistance Marker 06/17/23 14:22 Blood Culture (Wb) - Anticubital Right Blood Culture - Final Meth. resistant Staph. aureus 06/19/23 15:00 Stool Clostridioides difficile (PCR) - Final 03/02/24 14:53 Urine, Catheterized Urine Culture - Final Culture exhibits no growth. 06/17/23 14:22 Mucosa - Nose SARS-CoV-2, Influenza & RSV (PCR) - Final Dosing Weight Weight used for dosin.2 kg Estimated Creatinine Clearance Estimated Creatinine Clearance: 7.53 Goal Trough Goal Trough: 15-20 mcg/mL Pharmacy Plan for Drug Dosing Pharmacy Plan for Drug Dosing: The vancomycin random level drawn 06/21/23 pre-dialysis was high at 21.4. Per policy we will hold dosing for the HD session 06/21/23. Another level will be drawn Monday06/23/23 to determine further dosing. Pharmacy Service will continue to monitor and adjust dosing as required. Follow-Up Labs Follow-Up Labs: Trough: Vancomycin (random) Date/Time Labs Ordered Labs to be done on [date and time ordered]: 06/23/23 @0600 random
[2023-06-21 07:45] LABS: Hematocrit 30.7 % (40-54); Hemoglobin 9.8 g/dL (13.0-16.5); Mean Corp Hgb Conc 31.9 g/dL (32-36); Mean Corpuscular Hgb 32.9 pg (27.0-32.0); Mean Platelet Vol. 10.3 fl (6.2-12.0); POSITIVE COUNT YES; Platelet Count 90 K/mm3 (150-450); RBC Distribution Width CV 17.2 % (11.6-14.6); RBC Distribution Width SD 64.2 fl (35.1-43.9); Red Blood Count 2.98 M/mm3 (4.6-6.2); White Blood Count 9.1 K/mm3 (4.4-11.0)
[2023-06-21] MEDS: guaiFENesin 600 MG Tablet PO (08:53)
[2023-06-21] MEDS: Calcitriol 0.25 MCG Capsule 0.5 MCG PO (08:53)
[2023-06-21] MEDS: Calcium Acetate 667 MG Capsule 1334 MG PO ×2 (08:54→16:15)
[2023-06-21 09:19] LABS: Bedside Glucose 91 mg/dL (74-106)
[2023-06-21] MEDS: 0.9% Saline Lock 10 ML Syringe IV ×3 (09:30→21:21)
[2023-06-21] MEDS: 0.9% Normal Saline (1000mL) 1,000 ML 75 ML IV (09:30)
[2023-06-21 11:42] LABS: Bedside Glucose 115 mg/dL (74-106)
[2023-06-21] MEDS: Lidocaine 1% /Epi 1:100 (20ml) 20 ML Vial OPERA.SITE (12:15)
--- NOTE | 2023-06-21 12:28 | PN.RENAL_ITS ---
Subjective Subjective No new events. Removal of tunneled dialysis catheter today. Last culture from 06/19/2023 is negative. ID note reviewed. Objective Data Objective Data Vital Signs: Vital Signs Temp Pulse Resp BP Pulse Ox O2 Del Method O2 Flow Rate 97.7 F L 62 17 144/75 H 97 Nasal Cannula 2 06/21/23 11:45 06/21/23 12:15 06/21/23 12:15 06/21/23 12:15 06/21/23 12:15 06/21/23 12:15 06/21/23 12:15 Oxygen Flow Rate (L/min) 2 Oxygen Delivery Method Nasal Cannula Weight: 92.2 kg Body Mass Index (BMI) 27.6 Intake & Output: Intake and Output for Last 24 Hours 06/19/23 06/20/23 06/21/23 23:59 23:59 23:59 Intake Total 2874.08 / 3074.08 2700 / 2820 1120 / 1120 Output Total 100 / 100 150 / 150 0 / 0 Balance 2774.08 / 2974.08 2550 / 2670 1120 / 1120 Lab / Micro Data 06/21/23 04:15 06/19/23 04:10 Labs: Laboratory Results - last 24 hr 06/20/23 11:25: Platelet Estimate MOD DEC, Anisocytosis 1+ 06/20/23 16:04: POC Glucose 153 H 06/20/23 20:56: POC Glucose 187 H 06/21/23 04:15: WBC 9.1, RBC 2.98 L, Hgb 9.8 L, Hct 30.7 L, MCV 103.0 H, MCH 32.9 H, MCHC 31.9 L, RDW Std Deviation 64.2 H, RDW Coeff of Chloe 17.2 H, Plt Coun t 90 L, MPV 10.3, Random Vancomycin 21.4 H 06/21/23 08:08: POC Glucose 91 06/21/23 11:21: POC Glucose 115 H Micro: Microbiology 06/18/23 08:27 Blood Culture (Wb) - Right Wrist Blood Culture - Final Staphylococcus aureus 06/18/23 08:33 Blood Culture (Wb) - Right Hand Blood Culture - Final Staphylococcus aureus 06/17/23 14:34 Blood Culture (Wb) - Right Forearm Blood Culture - Final Staphylococcus aureus 06/19/23 04:00 Blood Culture (Wb) - Right Hand Blood Culture - Preliminary No growth in 48 hours. 06/19/23 04:00 Blood Culture (Wb) - Right Wrist Blood Culture - Preliminary No growth in 48 hours. 06/17/23 14:22 Blood Culture (Wb) - Anticubital Right Bacteria Detection (PCR) - Final Staphylococcus aureus mecA Resistance Marker 06/17/23 14:22 Blood Culture (Wb) - Anticubital Right Blood Culture - Final Meth. resistant Staph. aureus 06/19/23 15:00 Stool Clostridioides difficile (PCR) - Final 06/17/23 14:53 Urine, Catheterized Urine Culture - Final Culture exhibits no growth. 06/17/23 14:22 Mucosa - Nose SARS-CoV-2, Influenza & RSV (PCR) - Final Rhythm Strip Rhythm Strip: Sinus Rhythm Rate: 84 Ectopy: None Physical Exam Narrative no obvious distress no pallor no icterus no JVD s1s2 no murmurs lungs clear abdomen soft no organomegaly no edema no cyanosis Assessment & Plan Assessment/Plan (1) End stage chronic kidney disease: PLAN: On hemodialysis. For now we will plan to keep hemodialysis on Monday, Monday, Monday schedule. Anemia. Hemoglobin is at goal. He [facility] Bacteremia. Repeat blood cultures are negative so far. ID following. MRI spine negative. Right IJ dialysis catheter will likely be removed today
--- NOTE | 2023-06-21 12:32 | PN.HOSP_ITS ---
Reason for Visit Reason for Visit: Diagnoses Methicillin susceptible Staphylococcus aureus infection as the cause of diseases classified elsewhere (06/17/23) Methicillin resistant Staphylococcus aureus infection as the cause of diseases classified elsewhere (06/17/23) Thrombocytopenia, unspecified (06/17/23) End stage renal disease (06/17/23) Fever, unspecified (06/17/23) Bacteremia (06/17/23) Objective Data Objective Data Vital Signs: Vital Signs Temp Pulse Resp BP Pulse Ox O2 Del Method O2 Flow Rate 97.7 F L 69 22 H 157/78 H 97 Nasal Cannula 2 06/21/23 11:45 06/21/23 12:30 06/21/23 12:30 06/21/23 12:30 06/21/23 12:30 06/21/23 12:30 06/21/23 12:30 Oxygen Flow Rate (L/min) 2 Oxygen Delivery Method Nasal Cannula Weight: 203 lb 4.259 oz Body Mass Index (BMI) 27.6 Intake & Output: Intake and Output for Last 24 Hours 06/19/23 06/20/23 06/21/23 23:59 23:59 23:59 Intake Total 2874.08 / 3074.08 2700 / 2820 1120 / 1120 Output Total 100 / 100 150 / 150 0 / 0 Balance 2774.08 / 2974.08 2550 / 2670 1120 / 1120 Lab / Micro Data 06/21/23 04:15 06/19/23 04:10 Labs: Laboratory Results - last 24 hr 06/20/23 16:04: POC Glucose 153 H 06/20/23 20:56: POC Glucose 187 H 06/21/23 04:15: WBC 9.1, RBC 2.98 L, Hgb 9.8 L, Hct 30.7 L, MCV 103.0 H, MCH 32.9 H, MCHC 31.9 L, RDW Std Deviation 64.2 H, RDW Coeff of Chloe 17.2 H, Plt Count 90 L, MPV 10.3, Random Vancomycin 21.4 H 06/21/23 08:08: POC Glucose 91 06/21/23 11:21: POC Glucose 115 H Micro: Microbiology 06/18/23 08:27 Blood Culture (Wb) - Right Wrist Blood Culture - Final Staphylococcus aureus 06/18/23 08:33 Blood Culture (Wb) - Right Hand Blood Culture - Final Staphylococcus aureus 06/17/23 14:34 Blood Culture (Wb) - Right Forearm Blood Culture - Final Staphylococcus aureus 06/19/23 04:00 Blood Culture (Wb) - Right Hand Blood Culture - Preliminary No growth in 48 hours. 06/19/23 04:00 Blood Culture (Wb) - Right Wrist Blood Culture - Preliminary No growth in 48 hours. 06/17/23 14:22 Blood Culture (Wb) - Anticubital Right Bacteria Detection (PC R) - Final Staphylococcus aureus mecA Resistance Marker 06/17/23 14:22 Blood Culture (Wb) - Anticubital Right Blood Culture - Final Meth. resistant Staph. aureus 06/19/23 15:00 Stool Clostridioides difficile (PCR) - Final 06/17/23 14:53 Urine, Catheterized Urine Culture - Final Culture exhibits no growth. 06/17/23 14:22 Mucosa - Nose SARS-CoV-2, Influenza & RSV (PCR) - Final Rhythm Strip Rhythm Strip: Sinus Rhythm Rate: 84 Ectopy: None Physical Exam Narrative Seen and examined. Patient is fatigue, short of breath looks worse than yesterday. Problem in sitting up position. On hemodialysis. Physical exam General: Awake oriented x3, Cooperative, BMI is 27.6 kg/m? HEENT: Atraumatic, PERRLA, EOMI, Normocephalic Oral: No Gingival or Mucosal Lesions/ Ulcerations Neck: Supple, No JVD, Negative Carotid Bruits Chest wall/Lungs: Air entry diminished in bilateral lung bases. Mild respiratory distress on 2 L of oxygen. Bilateral wheezing and rhonchi. Cardiovascular: Irregular rhythm, A-fib, Normal S1, Normal S2, No M/G/R Abdomen: Bowel Sounds Present, Soft, Non Tender, Non-Distended : On hemodialysis. Has Palomo catheter in small yellowish urine in the bag. No renal angle tenderness. No suprapubic tenderness. Extremities: No edema, Capillary Refill Less than 3 Seconds Skin: No rashes, No breakdown Musculoskeletal: No Tenderness to Palpation of Joints or Extremities Neurological: Cranial nerves II-XII grossly intact, DTR 2+/4. No acute focal neurological deficit. Psych/Mental Status: Flat affect. Assessment & Plan Assessment/Plan (1) Staphylococcus aureus bacteremia: (2) Thrombocytopenia: (3) Fever: PLAN: Plan This is a 82-year-old gentleman admitted from [facility] with altered mental status and fever. Was admitted with suspected line infec tion. 1. Gram-positive cocci in clusters bacteremia--> due to MRSA -Patient does not meet sepsis criteria per Dec 3 protocol as there was no identifiable endorgan damage -2 of 2 blood cultures already showing gram-positive cocci in clusters -Fever curve seems to be improving -White count is slightly better -Suspect source is right-sided permacath -Initially on vancomycin and Zosyn but ID saw the patient and discontinued Zosyn. TTE showed no vegetation. Patient also has some new low back pain and MRI ordered. General surgery is following and plan to remove abdominal dialysis cath after 48 hours of discontinuation of Eliquis.Had last dose on 06/18/2023 at about 8 PM 06/19: Last blood culture from 06/17 growing Staph aureus,, MRSA. Possible removal of tunneled venous catheter tomorrow as he will complete 48 hours of discontinuation of Eliquis. Hemoglobin and thrombocytopenia are better. 06/20: On IV vancomycin. Random vancomycin level 21.4 Possible COPD exacerbation: Patient has history of smoking started at the age of 15 states about 3 to 4 cigarettes during latter part and then quit at the age of 40. Patient is mild respiratory distress shortness of breath. No wheezing therefore started on scheduled bronchodilator, IV Solu-Medrol, Mucinex, incentive spirometry and Pep. Chest x-ray portable ordered Toxic/metabolic encephalopathy -Likely related to the above -Should improve back to baseline with treatment of underlying disease Thrombocytopenia -Appears that his platelet counts fluctuate and are never that robust -Slight drop overnight however may be related to fluids and sepsis 06/19: Repeat platelet count is 83,000. H&H 10.1/31%. 06/20: Hemoglobin 9.8/hematocrit 3 30.7. Platelet count 90,000. Chronic anemia secondary to chronic renal disease -Hemoglobin is stable -Okay to continue apixaban Please see above End-stage renal disease -HD dependent -Continue calcitriol -Continue phosphate binder -Nephrology consult--> discussed with Dr. Weber and we are okay to remove his tunneled dialysis catheter at this time as his fistula is working well 06/19: Will need at least 48 hours for Eliquis to get metabolized from the body before the procedure. But his platelet counts are also low. CAD/HTN/HPL -Previous cardiac catheterization done at [facility] that showed left main coronary with minimal irregularities ramus intermedius with 95% stenosis after being occluded, left anterior descending artery with a long tubular 80% stenosis with calcification and a left circumflex artery with a mid segment which was rayshawn cified the proximal with a 40% stenosis and a medium caliber bifurcating lateral branch that has an ostial 90% stenosis. He also has a right coronary artery which had a 75% stenosis in the midsegment had a long tubular 60% stenosis -For this, CABG was considered but medical therapy was ultimately recommended -Continue atorvastatin -Hold Bumex -Hold isosorbide mononitrate Atrial fibrillation -Patient is not on any rate controlling medication -Continue home apixaban -Previous documentation indicates a pacemaker was recommended at some point but he declined and was recommended to avoid AV larry blocking agents due to bradycardic events PVD -Recent aortogram with right lower extremity runoff on 05/31/2023 -Continue outpatient follow-up with vascular medicine -Continue management for secondary risk factors Diabetic neuropathy -Continue home gabapentin History of DM-2 -Patient had a normal hemoglobin A1c on 05/16/2023 at 4.8 with minimal anemia -Would recommend discontinuation of his glipizide as an outpatient -No need for SSI or Accu-Cheks COPD -Patient does not appear to be on any inhalers at baseline -As needed albuterol -As needed guaifenesin DVT prophylaxis -continue home apixaban CODE STATUS -DNR CCA with no intubation per documentation from the nursing facility Charges/Coding Visit Charges Inpatient E&M: 95877 [facility] Hosp L3
--- NOTE | 2023-06-21 12:50 | RAD_ITS ---
EXAM: XR CHEST, 1 VIEW CLINICAL INDICATION: SOB. TECHNIQUE: Frontal view of the chest. COMPARISON: 06/17/2023. FINDINGS: LUNGS AND PLEURAL SPACES: Mild pulmonary interstitial edema. Mild pulmonary vascular congestion. No effusion. No pneumothorax following removal of right IJ approach double lumen catheter. HEART: Cardiomegaly. MEDIASTINUM: Central airways and mediastinal contour are unremarkable. BONES/JOINTS: Intact sternal wires. No acute fracture. SOFT TISSUES: Unremarkable. RAD/Chest 1 View (Portable) IMPRESSION: 1. Mild pulmonary interstitial edema suspicious for mild acute CHF. 2. No pneumothorax following removal of right IJ approach double lumen catheter when compared to 06/17/2023. Electronically Signed: Tyler Cano MD at 13:51 EST ,
[2023-06-21] MEDS: PureFlow B 2K Dialysis Soln 1 BAG 6 BAG PF (12:53)
[2023-06-21] MEDS: 0.9% Normal Saline 1,000 ML IV.SOLN. 1000 ML OPERA.SITE (12:53)
--- NOTE | 2023-06-21 15:42 | OP.PCM_ITS ---
Report of Operation Date of Procedure: 06/21/23 Pre-Operative Diagnosis: Bacteremia?removal of tunneled dialysis catheter Post-Operative Diagnosis: Same Surgery/Procedure Performed:: Removal of tunneled dialysis catheter at bedside?right IJ Surgeon: Mitzy Owen Type of Anesthesia: Local Specimen's removed: Culture of dialysis tip sent Estimated Blood Loss (mL): < 10 cc Description of Procedure: Informed consent was obtained. Patient's right chest was prepped draped usual sterile fashion with chlorhexidine. Local anesthesia of 1% lidocaine with epinephrine was used at the exit site of the catheter and along the catheter. Traction and hemostat was used to dissect the cuff of the catheter from the subcutaneous tissue. Once the cuff was completely dissected, the catheter pulled easily and pressure was held on the right IJ site for about 15 minutes. Tip was sent for culture. Hemostasis was assured. 4 x 4 gauze was placed for d ressing. Patient tolerated procedure well. Complications none
[2023-06-21] MEDS: CHLORHEXIDINE GLUC 2% CLOTH 1 EACH TOWELETTE TOPICAL (15:52)
[2023-06-21 16:27] LABS: Bedside Glucose 102 mg/dL (74-106)
[2023-06-21] MEDS: Gabapentin 100 MG Capsule PO ×2 (16:34→21:24)
[2023-06-21] MEDS: Isosorbide Mononitrate 30 MG Tablet PO (17:01)
[2023-06-21] MEDS: Ipratropium/Albuterol Sulfate 3 ML AMPUL.NEB INHALATION (19:02)
[2023-06-21] MEDS: Insulin Lispro 100 UNIT/ML INSULN.PEN SC (21:20)
[2023-06-21] MEDS: guaiFENesin/D-Methorphan TAB.SR.12H 2 TABLET PO (21:21)
[2023-06-21] MEDS: Atorvastatin Calcium 40 MG Tablet PO (21:21)
[2023-06-21 21:36] LABS: Bedside Glucose 271 mg/dL (74-106)
[2023-06-22] VITALS (24 sets, daily range): BP systolic 109–149; BP diastolic 52–76; PULSE 45–69; RESP 12–24; TEMP 36.1–36.5; O2SAT 92–99; BMI 27.2; BMI 27.5
[2023-06-22 04:28] LABS: Absolute Lymphocyte Count 0.55 X10^3/uL (0.83-4.51); Absolute Neutrophil Count 6.8 X10^3/uL (2.0-7.7); Basophil# 0.02 X10^3/uL; Basophil% 0.3 % (0-1); Hematocrit 28.1 % (40-54); Lymphocyte # 0.55 X10^3/ul (0.83-4.51); Lymphocyte % 7.3 % (19-41); Mean Corpuscular Hgb 32.8 pg (27.0-32.0); Mean Corpuscular Volume 102.6 fL (80-94); Monocyte# 0.15 X10^3/uL; NRBC Flagged by Analyzer 0 % (0-5); Neutrophil # 6.76 X10^3/uL (2.7-7.7); Neutrophil % 89.5 % (47-70); POSITIVE COUNT YES; POSITIVE DIFFERENTIAL YES; Platelet Count 95 K/mm3 (150-450); RBC Distribution Width CV 16.8 % (11.6-14.6); RBC Distribution Width SD 62.6 fl (35.1-43.9); Red Blood Count 2.74 M/mm3 (4.6-6.2); White Blood Count 7.6 K/mm3 (4.4-11.0)
[2023-06-22 04:40] LABS: Anion Gap 11 (5-15); BUN 62 mg/dL (7-18); BUN/Creat Ratio 9.9 RATIO (10-20); Calcium,Total 8.9 mg/dL (8.5-10.1); Chloride 106 mmol/L (98-107); Creatinine, Serum 6.27 mg/dL (0.70-1.30); EST Glomerular Filtration Rate 9 mL/min (>60); Est Glom Filt Rate - Afr Amer 11 mL/min (>60); Estimated Creatinine Clearance 9.97 ml/min; Glucose 201 mg/dL (74-106); Potassium 4.5 mmol/L (3.5-5.1); Sodium Level 140 mmol/L (136-145)
[2023-06-22] MEDS: 0.9% Saline Lock 10 ML Syringe IV ×2 (06:13→21:22)
--- NOTE | 2023-06-22 08:08 | PCM.PN.SRG ---
Subjective Subjective no issues w prev right chest site over night Objective Data Objective Data Vital Signs: Vital Signs Temp Pulse Resp BP Pulse Ox O2 Del Method O2 Flow Rate 97.2 F L 52 L 14 119/62 98 Nasal Cannula 2 06/22/23 00:00 06/22/23 07:00 06/22/23 07:00 06/22/23 07:00 06/22/23 07:00 06/22/23 07:00 06/22/23 07:00 Oxygen Flow Rate (L/min) 2 Oxygen Delivery Method Nasal Cannula Weight: 200 lb 13.458 oz Body Mass Index (BMI) 27.2 Intake & Output: Intake and Output for Last 24 Hours 06/20/23 06/21/23 06/22/23 23:59 23:59 23:59 Intake Total 2700 / 2820 1465 / 1465 Output Total 150 / 150 3110 / 3110 0 / 0 Balance 2550 / 2670 -1645 / -1645 0 / 0 Lab / Micro Data 06/22/23 04:15 06/22/23 04:15 Labs: Laboratory Results - last 24 hr 06/21/23 04:15: WBC 9.1, RBC 2.98 L, Hgb 9.8 L, Hct 30.7 L, MCV 103.0 H, MCH 32.9 H, MCHC 31.9 L, RDW Std Deviation 64.2 H, RDW Coeff of Chloe 17.2 H, Plt Count 90 L, MPV 10.3 06/21/23 08:08: POC Glucose 91 06/21/23 11:21: POC Glucose 115 H 06/21/23 16:07: POC Glucose 102 06/21/23 21:18: POC Glucose 271 H 06/22/23 04:15: WBC 7.6, RBC 2.74 L, Hgb 9.0 L, Hct 28.1 L, MCV 102.6 H, MCH 32.8 H, MCHC 32.0, RDW Std Deviation 62.6 H, RDW Coeff of Chloe 16.8 H, Plt Count 95 L, MPV 10.0, Immature Gran % (Auto) 0.900, Neut % (Auto) 89.5 H, Lymph % (Auto) 7.3 L, [place] % (Auto) 2.0, Eos % (Auto) 0.0, Baso % (Auto) 0.3, Absolute Neuts (auto) 6.8, Absolute Lymphs (auto) 0.55 L, Nucleated RBC % 0, Sodium 140, Potassium 4.5, Chloride 106, Carbon Dioxide 23.0, Anion Gap 11, BUN 62 H, Creatinine 6.27 H, Estim Creat Clear Calc 9.97, Est GFR (MDRD) Af Amer 11 L, Est GFR (MDRD) Non-Af 9 L, BUN/Creatinine Ratio 9.9 L, Glucose 201 H, Calcium 8.9 Micro: Microbiology 06/18/23 08:27 Blood Culture (Wb) - Right Wrist Blood Culture - Final Staphylococcus aureus 06/18/23 08:33 Blood Culture (Wb) - Right Hand Blood Culture - Final Staphylococcus aureus 06/17/23 14:34 Blood Culture (Wb) - Right Forearm Blood Culture - Final Staphylococcus aureus 06/19/23 04:00 Blood Culture (Wb) - Right Hand Blood Culture - Preliminary No growth in 48 hours. 06/19/23 04:00 Blood Culture (Wb) - Right Wrist Blood Culture - Preliminary No growth in 48 hours. 06/17/23 14:22 Blood Culture (Wb) - Anticubital Right Bacteria Detection (PCR) - Final Staphylococcus aureus mecA Resistance Marker 06/17/23 14:22 Blood Culture (Wb) - Anticubital Right Blood Culture - Final Meth. resistant Staph. aureus 06/19/23 15:00 Stool Clostridioides difficile (PCR) - Final 06/17/23 14:53 Urine, Catheterized Urine Culture - Final Culture exhibits no growth. 06/17/23 14:22 Mucosa - Nose SARS-CoV-2, Influenza & RSV (PCR) - Final Radiography Diagnostic Testing: Radiology Impression Chest X-Ray 06/21/23 12:50 IMPRESSION: 1. Mild pulmonary interstitial edema suspicious for mild acute CHF. 2. No pneumothorax following removal of right IJ approach double lumen catheter when compared to 06/17/2023. Electronically Signed: Tyler Cano MD at 13:51 EST , Rhythm Strip Rhythm Strip: Sinus Rhythm Rate: 84 Ectopy: None Physical Exam Const Constitutional Narrative: right chest dressing intact/dry Assessment & Plan Assessment/Plan (1) Staphylococcus aureus bacteremia: (2) Fever: (3) Thrombocytopenia: (4) End stage chronic kidney disease: PLAN: Plan Pt right chest/neck dressing clean, dry, intact-- will s/o call with questions. Mitzy Owen M.D. Pager: [phone] [facility] [address] [place] [address], [facility], [address] [place] [address] Office: [phone] Charges/Coding Visit Charges Inpatient E&M: 68309 Subs Hosp L2
[2023-06-22] MEDS: CHLORHEXIDINE GLUC 2% CLOTH 1 EACH TOWELETTE TOPICAL (08:19)
[2023-06-22] MEDS: Insulin Lispro 100 UNIT/ML INSULN.PEN SC ×4 (08:21→21:21)
--- NOTE | 2023-06-22 09:20 | CASEMGMT ---
Discharge Planning [facility] has obtained auth. Claudine Gamboa, Discharge Planning Asst.
--- NOTE | 2023-06-22 09:38 | PN.HOSP_ITS ---
Reason for Visit Reason for Visit: Diagnoses Methicillin susceptible Staphylococcus aureus infection as the cause of diseases classified elsewhere (06/17/23) Methicillin resistant Staphylococcus aureus infection as the cause of diseases classified elsewhere (06/17/23) Thrombocytopenia, unspecified (06/17/23) End stage renal disease (06/17/23) Fever, unspecified (06/17/23) Bacteremia (06/17/23) Objective Data Objective Data Vital Signs: Vital Signs Temp Pulse Resp BP Pulse Ox O2 Del Method O2 Flow Rate 97.2 F L 52 L 14 119/62 98 Nasal Cannula 2 06/22/23 00:00 06/22/23 07:00 06/22/23 07:00 06/22/23 07:00 06/22/23 07:00 06/22/23 08:00 06/22/23 08:00 Oxygen Flow Rate (L/min) 2 Oxygen Delivery Method Nasal Cannula Weight: 200 lb 13.458 oz Body Mass Index (BMI) 27.2 Intake & Output: Intake and Output for Last 24 Hours 06/20/23 06/21/23 06/22/23 23:59 23:59 23:59 Intake Total 2700 / 2820 1465 / 1465 Output Total 150 / 150 3110 / 3110 0 / 0 Balance 2550 / 2670 -1645 / -1645 0 / 0 Lab / Micro Data 06/22/23 04:15 06/22/23 04:15 Labs: Laboratory Results - last 24 hr 06/21/23 11:21: POC Glucose 115 H 06/21/23 16:07: POC Glucose 102 06/21/23 21:18: POC Glucose 271 H 06/22/23 04:15: WBC 7.6, RBC 2.74 L, Hgb 9.0 L, Hct 28.1 L, MCV 102.6 H, MCH 32.8 H, MCHC 32.0, RDW Std Deviation 62.6 H, RDW Coeff of Chloe 16.8 H, Plt Count 95 L, MPV 10.0, Immature Gran % (Auto) 0.900, Neut % (Auto) 89.5 H, Lymph % (Auto) 7.3 L, [place] % (Auto) 2.0, Eos % (Auto) 0.0, Baso % (Auto) 0.3, Absolute Neuts (auto) 6.8, Absolute Lymphs (auto) 0.55 L, Nucleated RBC % 0, Sodium 140, Potassium 4.5, Chloride 106, Carbon Dioxide 23.0, Anion Gap 11, BUN 62 H, Creatinine 6.27 H, Estim Creat Clear Calc 9.97, Est GFR (MDRD) Af Amer 11 L, Est GFR (MDRD) Non-Af 9 L, BUN/Creatinine Ratio 9.9 L, Glucose 201 H, Calcium 8.9 Micro: Microbiology 06/21/23 12:05 Catheter tip - Cvp Cath Tip Gram Stain - Final 06/18/23 08:27 Blood Culture (Wb) - Right Wrist Blood Culture - Final Staphylococcus aureus 06/18/23 08:33 Blood Culture (Wb) - Right Hand Blood Culture - Final Staphylococcus aureus 06/17/23 14:34 Blood Culture (Wb) - Right Forearm Blood Culture - Final Staphylococcus aureus 06/19/23 04:00 Blood Culture (Wb) - Right Hand Blood Culture - Preliminary No growth in 48 hours. 06/19/23 04:00 Blood Culture (Wb) - Right Wrist Blood Culture - Preliminary No growth in 48 hours. 06/17/23 14:22 Blood Culture (Wb) - Anticubital Right Bacteria Detection (PCR) - Final Staphylococcus aureus mecA Resistance Marker 06/17/23 14:22 Blood Culture (Wb) - Anticubital Right Blood Culture - Final Meth. resistant Staph. aureus 06/19/23 15:00 Stool Clostridioides difficile (PCR) - Final 06/17/23 14:53 Urine, Catheterized Urine Culture - Final Culture exhibits no growth. 06/17/23 14:22 Mucosa - Nose SARS-CoV-2, Influenza & RSV (PCR) - Final Radiography Diagnostic Testing: Radiology Impression Chest X-Ray 06/21/23 12:50 IMPRESSION: 1. Mild pulmonary interstitial edema suspicious for mild acute CHF. 2. No pneumothorax following removal of right IJ approach double lumen catheter when compared to 06/17/2023. Electronically Signed: Tyler Cano MD at 13:51 EST , Rhythm Strip Rhythm Strip: Sinus Rhythm Rate: 84 Ectopy: None Physical Exam Narrative Seen and examined. Patient is sleeping. Shortness of breath seems better than yesterday. Had right IJ tunnel dialysis catheter removed. On hemodialysis. Physical exam General: Lethargic, oriented x3, Cooperative, BMI is 27.6 kg/m? HEENT: Atraumatic, PERRLA, EOMI, Normocephalic Oral: Oral mucosa dry. No Gingival or Mucosal Lesions/ Ulcerations Neck: Supple, No JVD, Negative Carotid Bruits Chest wall/Lungs: Air entry diminished in bilateral lung bases. Bilateral expiratory rhonchi. Cardiovascular: Irregular rhythm, A-fib, Normal S1, Normal S2, No M/G/R Abdomen: Bowel Sounds Present, Soft, Non Tender, Non-Distended : On hemodialysis. Has Palomo catheter in small yellowish urine in the bag. No renal angle tenderness. No suprapubic tenderness. Extremities: No edema, Capillary Refill Less than 3 Seconds Skin: No rashes, No breakdown Musculoskeletal: No Tenderness to Palpation of Joints or Extremities ROM restricted Neurological: Cranial nerves II-XII grossly intact, DTR 2+/4. No acute focal neurological deficit. Psych/Mental Status: Flat affect. Assessment & Plan Assessment/Plan (1) Staphylococcus aureus bacteremia: (2) Thrombocytopenia: (3) Fever: PLAN: Plan This is a 82-year-old gentleman admitted from [facility] with altered mental status and fever. Was admitted with suspected line infection. 1. Gram-positive cocci in clusters bacteremia--> due to MRSA -Patient does not meet sepsis criteria per Sep 3 protocol as there was no identifiable endorgan damage -2 of 2 blood cultures already showing gram-positive cocci in clusters -Fever curve seems to be improving -White count is slightly better -Suspect source is right-sided permacath -Initially on vancomycin and Zosyn but ID saw the patient and discontinued Zosyn. TTE showed no vegetation. Patient also has some new low back pain and MRI ordered. General surgery is following and plan to remove abdominal dialysis cath after 48 hours of discontinuation of Eliquis.Had last dose on 06/18/2023 at about 8 PM 06/19: Last blood culture from 06/17 growing Staph aureus,, MRSA. Possible removal of tunneled venous catheter tomorrow as he will complete 48 hours of discontin uation of Eliquis. Hemoglobin and thrombocytopenia are better. 06/20: On IV vancomycin. Random vancomycin level 21.4 06/21: Catheter tip culture from 06/20, rare gram-positive cocci. 3+ WBC. 2 blood culture from 06/18 shows no growth in 48 hours. Blood cultures from 06/19 are pending. Possible COPD exacerbation: Patient has history of smoking started at the age of 15 states about 3 to 4 cigarettes during latter part and then quit at the age of 40. Patient is mild respiratory distress shortness of breath. No wheezing therefore started on scheduled bronchodilator, IV Solu-Medrol, Mucinex, incentive spirometry and Pep. Chest x-ray portable ordered 06/21: Chest x-ray shows mild interstitial edema and removal of dialysis catheter. No pneumothorax. Continuing all treatment. Toxic/metabolic encephalopathy -Likely related to the above -Should improve back to baseline with treatment of underlying disease Thrombocytopenia -Appears that his platelet counts fluctuate and are never that robust -Slight drop overnight however may be related to fluids and sepsis 06/19: Repeat platelet count is 83,000. H&H 10.1/31%. 06/20: Hemoglobin 9.8/hematocrit 3 30.7. Platelet count 90,000. Chronic anemia secondary to chronic renal disease -Hemoglobin is stable -Okay to continue apixaban Please see above End-stage renal disease -HD dependent -Continue calcitriol -Continue phosphate binder -Nephrology consult--> discussed with Dr. Weber and we are okay to remove his tunneled dialysis catheter at this time as his fistula is working well 06/19: Will need at least 48 hours for Eliquis to get metabolized from the body before the procedure. But his platelet counts are also low. CAD/HTN/HPL -Previous cardiac catheterization done at [facility] that showed left main coronary with minimal irregularities ramus intermedius with 95% stenosis after being occluded, left anterior descending artery with a long tubular 80% stenosis with calcification and a left circumflex artery with a mid segment which was calcified the proximal with a 40% stenosis and a medium caliber bifurcating lateral branch that has an ostial 90% stenosis. He also has a right coronary artery which had a 75% stenosis in the midsegment had a long tubular 60% stenosis -For this, CABG was considered but medical therapy was ultimately recommended -Continue atorvastatin -Hold Bumex -Hold isosorbide mononitrate Atrial fibrillation -Patient is not on any rate controlling medication -Continue home apixaban -Previous documentation indicates a pacemaker was recommended at some point but he declined and was recommended to avoid AV larry blocking agents due to bradycardic events 06/21: Patient heart rate is slowed in 50s with some sinus pauses and missed heartbeat. Hold rate control medications. PVD -Recent aortogram with right lower extremity runoff on 05/31/2023 -Continue outpatient follow-up with vascular medicine -Continue management for secondary risk factors Diabetic neuropathy -Continue home gabapentin History of DM-2 -Patient had a normal hemoglobin A1c on 05/16/2023 at 4.8 with minimal anemia -Would recommend discontinuation of his glipizide as an outpatient -No need for SSI or Accu-Cheks COPD -Patient does not appear to be on any inhalers at baseline -As needed albuterol -As needed guaifenesin DVT prophylaxis -continue home apixaban CODE STATUS -DNR CCA with no intubation per documentation from the nursing facility Charges/Coding Visit Charges Inpatient E&M: 105[address] [facility] L3
[2023-06-22] MEDS: Isosorbide Mononitrate 30 MG Tablet PO (09:44)
[2023-06-22] MEDS: guaiFENesin/D-Methorphan TAB.SR.12H 2 TABLET PO ×2 (09:44→21:22)
[2023-06-22] MEDS: Calcium Acetate 667 MG Capsule 1334 MG PO ×3 (09:44→16:59)
--- NOTE | 2023-06-22 09:44 | CASEMGMT ---
Social Work Pt was approved by insurance for skilled care at SNF, however it appears pt is not ready for discharge today. SW called daughter, message left to call SW back. CHANDU Laboy
[2023-06-22] MEDS: Gabapentin 100 MG Capsule PO ×2 (09:46→21:21)
[2023-06-22 10:13] LABS: Bedside Glucose 189 mg/dL (74-106)
[2023-06-22 12:31] LABS: Bedside Glucose 258 mg/dL (74-106)
[2023-06-22] MEDS: Ipratropium/Albuterol Sulfate 3 ML AMPUL.NEB INHALATION ×2 (13:48→18:57)
--- NOTE | 2023-06-22 13:49 | PCM.PN.ID ---
Physical Exam Narrative HD line removed yesterday, feeling better, no fever Const alert and no apparent distress Resp normal air movement and clear to auscultation bilaterally Cardio regular rate and regular rhythm GI soft to palpation, non-tender and non-distended Skin no rashes or lesions noted ID ID: Route of nutrition/ use of supplements: [] Nutritional Intake: [] IV Site: [] Palomo Catheter: [] Assessment & Plan Assessment/Plan (1) MRSA bacteremia: PLAN: Fever and leukocytosis resolved. Repeat bcx 06/18/23 now (+) but neg since 06/19/23. MRSA seen on pcr. HD cath removal 06/21/23. TTE showed no veg. Having some new low back pain, no deeper infection seen on noncontrast MRI. Cont vanc. Will follow (2) End stage chronic kidney disease:
[2023-06-22 17:19] LABS: Bedside Glucose 318 mg/dL (74-106)
--- NOTE | 2023-06-22 19:21 | PCM.PN.REN ---
Subjective Subjective no new events Objective Data Objective Data Vital Signs: Vital Signs Temp Pulse Resp BP Pulse Ox O2 Del Method O2 Flow Rate 97.7 F L 69 24 H 149/76 H 96 Nasal Cannula 2 06/22/23 17:00 06/22/23 18:00 06/22/23 18:00 06/22/23 18:00 06/22/23 18:00 06/22/23 18:00 06/22/23 18:00 Oxygen Flow Rate (L/min) 2 Oxygen Delivery Method Nasal Cannula Weight: 91.1 kg Body Mass Index (BMI) 27.2 Intake & Output: Intake and Output for Last 24 Hours 06/20/23 06/21/23 06/22/23 23:59 23:59 23:59 Intake Total 2700 / 2820 1465 / 1465 Output Total 150 / 150 3110 / 3110 0 / 0 Balance 2550 / 2670 -1645 / -1645 0 / 0 Lab / Micro Data 06/22/23 04:15 06/22/23 04:15 Labs: Laboratory Results - last 24 hr 06/21/23 21:18: POC Glucose 271 H 06/22/23 04:15: WBC 7.6, RBC 2.74 L, Hgb 9.0 L, Hct 28.1 L, MCV 102.6 H, MCH 32.8 H, MCHC 32.0, RDW Std Deviation 62.6 H, RDW Coeff of Chloe 16.8 H, Plt Count 95 L, MPV 10.0, Immature Gran % (Auto) 0.900, Neut % (Auto) 89.5 H, Lymph % (Auto) 7.3 L, [place] % (Auto) 2.0, Eos % (Auto) 0.0, Baso % (Auto) 0.3, Absolute Neuts (auto) 6.8, Absolute Lymphs (auto) 0.55 L, Nucleated RBC % 0, Sodium 140, Potassium 4.5, Chloride 106, Carbon Dioxide 23.0, Anion Gap 11, BUN 62 H, Creatinine 6.27 H, Estim Creat Clear Calc 9.97, Est GFR (MDRD) Af Amer 11 L, Est GFR (MDRD) Non-Af 9 L, BUN/Creatinine Ratio 9.9 L, Glucose 201 H, Calcium 8.9 06/22/23 08:21: POC Glucose 189 H 06/22/23 12:09: POC Glucose 258 H 06/22/23 16:58: POC Glucose 318 H Micro: Microbiology 06/20/23 14:00 Blood Culture (Wb) - Anticubital Right Blood Culture - Preliminary No growth in 48 hours. 06/21/23 12:05 Catheter tip - Cvp Cath Tip Gram Stain - Final 06/18/23 08:27 Blood Culture (Wb) - Right Wrist Blood Culture - Final Staphylococcus aureus 06/18/23 08:33 Blood Culture (Wb) - Right Hand Blood Culture - Final Staphylococcus aureus 06/17/23 14:34 Blood Culture (Wb) - Right Forearm Blood Culture - Final Staphylococcus aureus 06/19/23 04:00 Blood Culture (Wb) - Right Hand Blood Culture - Preliminary No growth in 48 hours. 06/19/23 04:00 Blood Culture (Wb) - Right Wrist Blood Culture - Preliminary No growth in 48 hours. 06/17/23 14:22 Blood Culture (Wb) - Anticubital Right Bacteria Detection (PCR) - Final Staphylococcus aureus mecA Resistance Marker 06/17/23 14:22 Blood Culture (Wb) - Anticubital Right Blood Culture - Final Meth. resistant Staph. aureus 06/19/23 15:00 Stool Clostridioides difficile (PCR) - Final 06/17/23 14:53 Urine, Catheterized Urine Culture - Final Culture exhibits no growth. 06/17/23 14:22 Mucosa - Nose SARS-CoV-2, Influenza & RSV (PCR) - Final Rhythm Strip Rhythm Strip: Sinus Rhythm Rate: 84 Ectopy: None Physical Exam Narrative no obvious distress no pallor no icterus no JVD s1s2 no murmurs lungs clear abdomen soft no organomegaly no edema no cyanosis Assessment & Plan Assessment/Plan (1) End stage chronic kidney disease: PLAN: On hemodialysis. For now we will plan to keep hemodialysis on Monday, Monday, Monday schedule. Anemia. Hemoglobin is at goal. He gets long-acting erythropoietin with dialysis in the correction. Bacteremia. ID note reviewed.
[2023-06-22] MEDS: Atorvastatin Calcium 40 MG Tablet PO (21:22)
[2023-06-22 21:52] LABS: Bedside Glucose 309 mg/dL (74-106)
[2023-06-23] VITALS (17 sets, daily range): BP systolic 111–277; BP diastolic 46–88; PULSE 51–66; RESP 12–20; TEMP 36.1–36.6; O2SAT 92–100; BMI 27.5; BMI 26.9
[2023-06-23] MEDS: 0.9% Saline Lock 10 ML Syringe IV ×2 (05:47→16:21)
[2023-06-23 06:25] LABS: Vancomycin, Random Level 15.8 ug/mL (0.0-15.0)
[2023-06-23] MEDS: 0.9% Normal Saline 1,000 ML IV.SOLN. 1000 ML OPERA.SITE (07:37)
[2023-06-23] MEDS: PureFlow B 2K Dialysis Soln 1 BAG 6 BAG PF (07:38)
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
--- NOTE | 2023-06-23 07:54 | PCM.RX.CS ---
Consult Antibiotic Management Pharmacy has been consulted to manage selected antibiotic: Vancomycin Type of Intervention Type of Consult: Follow-up Suspected Infection Suspected Infection: Bacteremia Prior Doses of Antibiotics Prior Doses of Antibiotics Received/Current Regimen: Last dose was 500mg iv x 1 post dialysis on 06.19.23 @1445. Labs Labs: Sodium 140 mmol/L (136-145) 06/22/23 04:15 Potassium 4.5 mmol/L (3.5-5.1) 06/22/23 04:15 Chloride 106 mmol/L (98-107) 06/22/23 04:15 Carbon Dioxide 23.0 mmol/L (21.0-32.0) 06/22/23 04:15 Anion Gap 11 (5-15) 06/22/23 04:15 BUN 62 mg/dL (7-18) H 06/22/23 04:15 Creatinine 6.27 mg/dL (0.70-1.30) H 06/22/23 04:15 Est GFR (MDRD) Af Amer 11 mL/min (>60) L 06/22/23 04:15 Est GFR (MDRD) Non-Af 9 mL/min (>60) L 06/22/23 04:15 BUN/Creatinine Ratio 9.9 RATIO (10-20) L 06/22/23 04:15 Glucose 201 mg/dL (74-106) H 06/22/23 04:15 Random Vancomycin 15.8 ug/mL (0.0-15.0) H 06/23/23 05:51 Microbiology Microbiology: Microbiology 06/20/23 14:00 Blood Culture (Wb) - Anticubital Right Blood Culture - Preliminary No growth in 48 hours. 06/21/23 12:05 Catheter tip - Cvp Cath Tip Gram Stain - Final 06/18/23 08:27 Blood Culture (Wb) - Right Wrist Blood Culture - Final Staphylococcus aureus 06/18/23 08:33 Blood Culture (Wb) - Right Hand Blood Culture - Final Staphylococcus aureus 06/17/23 14:34 Blood Culture (Wb) - Right Forearm Blood Culture - Final Staphylococcus aureus 06/19/23 04:00 Blood Culture (Wb) - Right Hand Blood Culture - Preliminary No growth in 48 hours. 06/19/23 04:00 Blood Culture (Wb) - Right Wrist Blood Culture - Preliminary No growth in 48 hours. 06/17/23 14:22 Blood Culture (Wb) - Anticubital Right Bacteria Detection (PCR) - Final Staphylococcus aureus mecA Resistance Marker 06/17/23 14:22 Blood Culture (Wb) - Anticubital Right Blood Culture - Final Meth. resistant Staph. aureus 06/19/23 15:00 Stool Clostridioides difficile (PCR) - Final 06/17/23 14:53 Urine, Catheterized Urine Culture - Final Culture exhibits no growth. 06/17/23 14:22 Mucosa - Nose SARS-CoV-2, Influenza & RSV (PCR) - Final Dosing Weight Weight used for dosin.8 kg Estimated Creatinine Clearance Estimated Creatinine Clearance: HD Goal Trough Goal Trough: 15-20 mcg/mL Pharmacy Plan for Drug Dosing Pharmacy Plan for Drug Dosing: Random level this AM (~87 hrs post dose ) was therapeutic at 15.8. Have ordered 500mg iv x 1 post dialysis today per protocol. Random level ordered for before next dialysis session on Monday06.26.23. Pharmacy Service will continue to monitor and adjust dosing as required. Follow-Up Labs Follow-Up Labs: Trough: Other (random level 06.26.23 0600)
[2023-06-23 08:35] LABS: Bedside Glucose 254 mg/dL (74-106)
[2023-06-23] MEDS: Insulin Lispro 100 UNIT/ML INSULN.PEN SC ×3 (08:37→16:29)
--- NOTE | 2023-06-23 08:57 | CASEMGMT ---
Social Work SW sent updates to [facility] via [employer]. The precert is good until tomorrow as per [facility]. SW will let [facility] know when pt is ready, if they need to get the precert updated for a possible weekend discharge, or if pt may be ready today. CHANDU Laboy
[2023-06-23] MEDS: Calcium Acetate 667 MG Capsule 1334 MG PO ×2 (11:26→16:29)
[2023-06-23] MEDS: guaiFENesin/D-Methorphan TAB.SR.12H 2 TABLET PO (11:27)
[2023-06-23] MEDS: APIXABAN 2.5 MG TABLET (WCH) PO (11:32)
[2023-06-23] MEDS: Calcitriol 0.25 MCG Capsule 0.5 MCG PO (11:33)
[2023-06-23] MEDS: Isosorbide Mononitrate 30 MG Tablet PO (11:33)
[2023-06-23] MEDS: CHLORHEXIDINE GLUC 2% CLOTH 1 EACH TOWELETTE TOPICAL (11:34)
[2023-06-23] MEDS: Gabapentin 100 MG Capsule PO (11:39)
[2023-06-23 11:43] LABS: Bedside Glucose 232 mg/dL (74-106)
--- NOTE | 2023-06-23 12:15 | PCM.PN.HOSP ---
Reason for Visit Reason for Visit: Diagnoses Methicillin susceptible Staphylococcus aureus infection as the cause of diseases classified elsewhere (06/17/23) Methicillin resistant Staphylococcus aureus infection as the cause of diseases classified elsewhere (06/17/23) Thrombocytopenia, unspecified (06/17/23) End stage renal disease (06/17/23) Fever, unspecified (06/17/23) Bacteremia (06/17/23) Objective Data Objective Data Vital Signs: Vital Signs Temp Pulse Resp BP Pulse Ox O2 Del Method O2 Flow Rate 97.2 F L 64 15 147/74 H 99 Room Air 2 06/23/23 10:57 06/23/23 11:46 06/23/23 10:57 06/23/23 11:46 06/23/23 10:57 06/23/23 10:57 06/23/23 04:00 Oxygen Flow Rate (L/min) 2 Oxygen Delivery Method Room Air Weight: 198 lb 6.656 oz Body Mass Index (BMI) 26.9 Intake & Output: Intake and Output for Last 24 Hours 06/21/23 06/22/23 06/23/23 23:59 23:59 23:59 Intake Total 1465 / 1465 Output Total 3110 / 3110 0 / 0 2500 / 2500 Balance -1645 / -1645 0 / 0 -2500 / -2500 Lab / Micro Data 06/22/23 04:15 06/22/23 04:15 Labs: Laboratory Results - last 24 hr 06/22/23 12:09: POC Glucose 258 H 06/22/23 16:58: POC Glucose 318 H 06/22/23 21:21: POC Glucose 309 H 06/23/23 05:51: Random Vancomycin 15.8 H 06/23/23 08:11: POC Glucose 254 H 06/23/23 11:25: POC Glucose 232 H Micro: Microbiology 06/21/23 12:05 Catheter tip - Cvp Cath Tip Gram Stain - Final 06/21/23 12:05 Catheter tip - Cvp Cath Tip Wound Culture - Preliminary Staphylococcus species 06/21/23 12:05 Catheter tip - Cvp Cath Tip Anaerobic Culture - Preliminary Checking for anaerobes, further studies to follow. 06/20/23 14:00 Blood Culture (Wb) - Anticubital Right Blood Culture - Preliminary No growth in 48 hours. 06/18/23 08:27 Blood Culture (Wb) - Right Wrist Blood Culture - Final Staphylococcus aureus 06/18/23 08:33 Blood Culture (Wb) - Right Hand Blood Culture - Final Staphylococcus aureus 06/17/23 14:34 Blood Culture (Wb) - Right Forearm Blood Culture - Final Staphylococcus aureus 06/19/23 04:00 Blood Culture (Wb) - Right Hand Blood Culture - Preliminary No growth in 48 hours. 06/19/23 04:00 Blood Culture (Wb) - Right Wrist Blood Culture - Preliminary No growth in 48 hours. 06/17/23 14:22 Blood Culture (Wb) - Anticubital Right Bacteria Detection (PCR) - Final Staphylococcus aureus mecA Resistance Marker 06/17/23 14:22 Blood Culture (Wb) - Anticubital Right Blood Culture - Final Meth. resistant Staph. aureus 06/19/23 15:00 Stool Clostridioides difficile (PCR) - Final 06/17/23 14:53 Urine, Catheterized Urine Culture - Final Culture exhibits no growth. 06/17/23 14:22 Mucosa - Nose SARS-CoV-2, Influenza & RSV (PCR) - Final Rhythm Strip Rhythm Strip: Sinus Rhythm Rate: 84 Ectopy: None Physical Exam Narrative Seen and examined. Overnight events reviewed. Patient intermittently getting confused and disoriented. Patient not had bowel movement since 06/16 even being on stool softeners. Had right IJ tunnel dialysis catheter removed. On hemodialysis. Heart rate in 50s. Physical exam General: Lethargic, oriented x2, Cooperative, BMI is 27.6 kg/m? HEENT: Atraumatic, PERRLA, EOMI, Normocephalic Oral: Oral mucosa dry. No Gingival or Mucosal Lesions/ Ulcerations Neck: Supple, No JVD, Negative Carotid Bruits Chest wall/Lungs: Air entry diminished in bilateral lung bases. Bilateral expiratory rhonchi. Cardiovascular: Irregular rhythm, A-fib, Normal S1, Normal S2, No M/G/R Abdomen: Bowel Sounds Present, Soft, Non Tender, Non-Distended : On hemodialysis. Has Palomo catheter in small yellowish urine in the bag. No renal angle tenderness. No suprapubic tenderness. Extremities: No edema, Capillary Refill Less than 3 Seconds Skin: No rashes, No breakdown Musculoskeletal: No Tenderness to Palpation of Joints or Extremities ROM restricted Neurological: Cranial nerves II-XII grossly intact, DTR 2+/4. No acute focal neurological deficit. Psych/Mental Status: Flat affect. Assessment & Plan Assessment/Plan (1) Staphylococcus aureus bacteremia: (2) Thrombocytopenia: (3) Fever: PLAN: Plan This is a 82-year-old gentleman admitted from [facility] with altered mental status and fever. Was admitted with suspected line infection. 1. Gram-positive cocci in clusters bacteremia--> due to MRSA -Patient does not meet sepsis criteria per Dec 3 protocol as there was no identifiable endorgan damage -2 of 2 blood cultures already showing gram-positive cocci in clusters -Fever curve seems to be improving -White count is slightly better -Suspect source is right-sided permacath -Initially on vancomycin and Zosyn but ID saw the patient and discontinued Zosyn. TTE showed no vegetation. Patient also has some new low back pain and MRI ordered. General surgery is following and plan to remove abdominal dialysis cath after 48 hours of discontinuation of Eliquis.Had last dose on 06/18/2023 at about 8 PM 06/19: Last blood culture from 06/17 growing Staph aureus,, MRSA. Possible removal of tunneled venous catheter tomorrow as he will complete 48 hours of discontinuation of Eliquis. Hemoglobin and thrombocytopenia are better. 06/20: On IV vancomycin. Random vancomycin level 21.4 06/21: Catheter tip culture from 06/20, rare gram-positive cocci. 3+ WBC. 2 blood culture from 06/18 shows no growth in 48 hours. Blood cultures from 06/19 are pending. 06/22: Prelim catheter tip culture shows staph species, final culture pending. Blood culture from 06/19 shows no growth. Last blood culture positive of MRSA was 06/17. Possible COPD exacerbation: Patient has history of smoking started at the age of 15 states about 3 to 4 cigarettes during latter part and then quit at the age of 40. Patient is mild respiratory distress shortness of breath. No wheezing therefore started on scheduled bronchodilator, IV Solu-Medrol, Mucinex, incentive spirometry and Pep. Chest x-ray portable ordered 06/21: Chest x-ray shows mild interstitial edema and removal of dialysis catheter. No pneumothorax. Continuing all treatment. 06/22: Patient is on room air. Not tachypneic. Toxic/metabolic encephalopathy -Likely related to the above -Should improve back to baseline with treatment of underlying disease 06/22: Patient intermittently gets confused and disoriented. Most likely metabolic encephalopathy. Thrombocytopenia -Appears that his platelet counts fluctuate and are never that robust -Slight drop overnight however may be related to fluids and sepsis 06/19: Repeat platelet count is 83,000. H&H 10.1/31%. 06/20: Hemoglobin 9.8/hematocrit 3 30.7. Platelet count 90,000. Chronic anemia secondary to chronic renal disease -Hemoglobin is stable -Okay to continue apixaban Please see above End-stage renal disease -HD dependent -Continue calcitriol -Continue phosphate binder -Nephrology consult--> discussed with Dr. Weber and we are okay to remove his tunneled dialysis catheter at this time as his fistula is working well 06/19: Will need at least 48 hours for Eliquis to get metabolized from the body before the procedure. But his platelet counts are also low. CAD/HTN/HPL -Previous cardiac catheterization done at [facility] that showed left main coronary with minimal irregularities ramus intermedius with 95% stenosis after being occluded, left anterior descending artery with a long tubular 80% stenosis with calcification and a left circumflex artery with a mid segment which was calcified the proximal with a 40% stenosis and a medium caliber bifurcating lateral branch that has an ostial 90% stenosis. He also has a right coronary artery which had a 75% stenosis in the midsegment had a long tubular 60% stenosis -For this, CABG was considered but medical therapy was ultimately recommended -Continue atorvastatin -Hold Bumex -Hold isosorbide mononitrate Atrial fibrillation -Patient is not on any rate controlling medication -Continue home apixaban -Previous documentation indicates a pacemaker was recommended at some point but he declined and was recommended to avoid AV larry blocking agents due to bradycardic events 06/21: Patient heart rate is slowed in 50s with some sinus pauses and missed heartbeat. Hold rate control medications. PVD -Recent aortogram with right lower extremity runoff on 05/31/2023 -Continue outpatient follow-up with vascular medicine -Continue management for secondary risk factors Diabetic neuropathy -Continue home gabapentin History of DM-2 -Patient had a normal hemoglobin A1c on 05/16/2023 at 4.8 with minimal anemia -Would recommend discontinuation of his glipizide as an outpatient -No need for SSI or Accu-Cheks COPD -Patient does not appear to be on any inhalers at baseline -As needed albuterol -As needed guaifenesin DVT prophylaxis -continue home apixaban CODE STATUS -DNR CCA with no intubation per documentation from the nursing facility Charges/Coding Visit Charges Inpatient E&M: 68763 Subs Hosp L3
[2023-06-23] MEDS: Bisacodyl 5 MG Tablet 10 MG PO (12:48)
[2023-06-23] MEDS: Pantoprazole Sodium 40 MG Tablet PO (12:48)
[2023-06-23] MEDS: Polyethylene Glycol 3350 17 GM PACKET PO (12:48)
--- NOTE | 2023-06-23 13:13 | PCM.PN.ID ---
Physical Exam Narrative HD this AM. No fever, fistula working well. Const alert and no apparent distress Resp normal air movement and clear to auscultation bilaterally Cardio regular rate and regular rhythm GI soft to palpation, non-tender and non-distended Skin no rashes or lesions noted ID ID: Route of nutrition/ use of supplements: [] Nutritional Intake: [] IV Site: [] Palomo Catheter: [] Assessment & Plan Assessment/Plan (1) MRSA bacteremia: PLAN: Fever and leukocytosis resolved. Repeat bcx 06/18/23 now (+) but neg since 06/19/23. MRSA seen on pcr. HD cath removal 06/21/23. TTE showed no veg. Having some new low back pain, no deeper infection seen on noncontrast MRI. Cont vanc. Ok for discharge on 2 weeks iv vanc dosed with HD, wrote rx. Will follow (2) End stage chronic kidney disease:
--- NOTE | 2023-06-23 13:25 | PN.RENAL_ITS ---
Subjective Subjective No new complaints. Breathing is okay. Had dialysis this morning. Objective Data Objective Data Vital Signs: Vital Signs Temp Pulse Resp BP Pulse Ox O2 Del Method O2 Flow Rate 97.2 F L 64 15 147/74 H 99 Room Air 2 06/23/23 10:57 06/23/23 11:46 06/23/23 10:57 06/23/23 11:46 06/23/23 10:57 06/23/23 10:57 06/23/23 04:00 Oxygen Flow Rate (L/min) 2 Oxygen Delivery Method Room Air Weight: 90 kg Body Mass Index (BMI) 26.9 Intake & Output: Intake and Output for Last 24 Hours 06/21/23 06/22/23 06/23/23 23:59 23:59 23:59 Intake Total 1465 / 1465 Output Total 3110 / 3110 0 / 0 2500 / 2500 Balance -1645 / -1645 0 / 0 -2500 / -2500 Lab / Micro Data 06/22/23 04:15 06/22/23 04:15 Labs: Laboratory Results - last 24 hr 06/22/23 16:58: POC Glucose 318 H 06/22/23 21:21: POC Glucose 309 H 06/23/23 05:51: Random Vancomycin 15.8 H 06/23/23 08:11: POC Glucose 254 H 06/23/23 11:25: POC Glucose 232 H Micro: Microbiology 06/21/23 12:05 Catheter tip - Cvp Cath Tip Gram Stain - Final 06/21/23 12:05 Catheter tip - Cvp Cath Tip Wound Culture - Preliminary Staphylococcus species 06/21/23 12:05 Catheter tip - Cvp Cath Tip Anaerobic Culture - Preliminary Checking for anaerobes, further studies to follow. 06/20/23 14:00 Blood Culture (Wb) - Anticubital Right Blood Culture - Preliminary No growth in 48 hours. 06/18/23 08:27 Blood Culture (Wb) - Right Wrist Blood Culture - Final Staphylococcus aureus 06/18/23 08:33 Blood Culture (Wb) - Right Hand Blood Culture - Final Staphylococcus aureus 06/17/23 14:34 Blood Culture (Wb) - Right Forearm Blood Culture - Final Staphylococcus aureus 06/19/23 04:00 Blood Culture (Wb) - Right Hand Blood Culture - Preliminary No growth in 48 hours. 06/19/23 04:00 Blood Culture (Wb) - Right Wrist Blood Culture - Preliminary No growth in 48 hours. 06/17/23 14:22 Blood Culture (Wb) - Anticubital Right Bacteria Detection (PCR) - Final Staphylococcus aureus mecA Resistance Marker 06/17/23 14:22 Blood Culture (Wb) - Anticubital Right Blood Culture - Final Meth. resistant Staph. aureus 06/19/23 15:00 Stool Clostridioides difficile (PCR) - Final 06/17/23 14:53 Urine, Catheterized Urine Culture - Final Culture exhibits no growth. 06/17/23 14:22 Mucosa - Nose SARS-CoV-2, Influenza & RSV (PCR) - Final Rhythm Strip Rhythm Strip: Sinus Rhythm Rate: 84 Ectopy: None Physical Exam Narrative no obvious distress no pallor no icterus no JVD s1s2 no murmurs lungs clear abdomen soft no organomegaly no edema no cyanosis Assessment & Plan Assessment/Plan (1) End stage chronic kidney disease: PLAN: On hemodialysis. For now we will plan to keep hemodialysis on Monday, Monday, Monday schedule. Dialysis today. Anemia. Hemoglobin is at goal. He gets long-acting erythropoietin with dialysis in the senior living. Bacteremia. Last blood cultures are negative. Discussed with ID service. 2 more weeks of IV vancomycin. Will continue to use the fistula for dialysis. No plans for dialysis catheter placement at this time. Discussed with hospitalist.
--- NOTE | 2023-06-23 13:50 | CASEMGMT ---
Addendum entered by Lanie Mtz 06/23/23 16:21: Social Work Med list sent to [facility] via [employer]. No further needs, pt to [facility], skilled, today. CHANDU Laboy Addendum entered by Lanie Mtz 06/23/23 15:38: Social Work Physician is discharging pt today. MEENU set up transport, the first available is 7pm, ambulance w/Physicians. MEENU let daughter Audrey know pt is being discharged today with a 7pm pickup time. SW let the bedside RN know, and also sent [facility] the discharge paperwork along with the discharge time through [employer]. SW is still waiting for the med list, SW let [facility] know via [employer] will send it should it be completed before SW leaves for the day, otherwise it will be faxed and sent in the packet. MEENU texted physician requesting the med list, awaiting response. CHANDU Laboy Addendum entered by Lanie Mtz 06/23/23 15:10: Social Work SW spoke w/daughter, let her know pt may be getting discharged today or tomorrow, and that we did get a precert. SW explained will call her back to let her know for certain once SW knows one way or the other. Daughter states understanding. SW will continue to follow. CHANDU Laboy Original Note: Social Work SW sent additional updates to [facility] including IV antibiotic information, antibiotics to be given with dialysis. MEENU inquired if pt can return on either Monday or Monday, as they were going to work on an updated precert to extend it past Monday. Pt's daughter also called SW back and left a message, SW called daughter back and left a message. CHANDU Laboy
--- NOTE | 2023-06-23 14:41 | PCM.TXEXTCAR ---
Diet Diet Order/Speech Therapy: 06/23/23 08:47 Diet: Renal - ConsCHO - Pete Cont Dietary Modifications:: Sodium Restricted Type of Dietary Supplement:: Nepro Is pt able to select menu?: No Diet Comments: 120mL Nepro BID w/ breakfast and dinner tray How many daily calories?: 1999 calorie Routine Orders/Code Status Enema Type: Soapsuds enema. Enema Frequency: Daily PRN Suppository Type: Dulcolax 10mg Suppository Frequency: Daily PRN Code Status: DNRCC-A Wound(s) rt chest: Wound Type: Surgical Incision Therapies Weight Bearing: Weight bearing as tolerated Extremity Affected:: Bilateral Lower Physical Therapy: Eval and Treat Occupational Therapy: Eval and Treat Speech Therapy: Eval and Treat Problem/Diagnosis (1) End stage chronic kidney disease: Status: Chronic Code(s): N18.6 - End stage renal disease Plan This is a 82-year-old gentleman admitted from [facility] with altered mental status and fever. Was admitted with suspected line infection. 1. Gram-positive cocci in clusters bacteremia--> due to MRSA -Patient does not meet sepsis criteria per Dec 3 protocol as there was no identifiable endorgan damage -2 of 2 blood cultures already showing gram-positive cocci in clusters -Fever curve seems to be improving -White count is slightly better -Suspect source is right-sided permacath -Initially on vancomycin and Zosyn but ID saw the patient and discontinued Zosyn. TTE showed no vegetation. Patient also has some new low back pain and MRI ordered. General surgery is following and plan to remove abdominal dialysis cath after 48 hours of discontinuation of Eliquis.Had last dose on 06/18/2023 at about 8 PM 06/19: Last blood culture from 06/17 growing Staph aureus,, MRSA. Possible removal of tunneled venous catheter tomorrow as he will complete 48 hours of discontinuation of Eliquis. Hemoglobin and thrombocytopenia are better. 06/20: On IV vancomycin. Random vancomycin level 21.4 06/21: Catheter tip culture from 06/20, rare gram-positive cocci. 3+ WBC. 2 blood culture from 06/18 shows no growth in 48 hours. Blood cultures from 06/19 are pending. 06/22: Prelim catheter tip culture shows staph species, final culture pending. Blood culture from 06/19 shows no growth. Last blood culture positive of MRSA was 06/17. Possible COPD exacerbation: Patient has history of smoking started at the age of 15 states about 3 to 4 cigarettes during latter part and then quit at the age of 40. Patient is mild respiratory distress shortness of breath. No wheezing therefore started on scheduled bronchodilator, IV Solu-Medrol, Mucinex, incentive spirometry and Pep. Chest x-ray portable ordered 06/21: Chest x-ray shows mild interstitial edema and removal of dialysis catheter. No pneumothorax. Continuing all treatment. 06/22: Patient is on room air. Not tachypneic. Toxic/metabolic encephalopathy -Likely related to the above -Should improve back to baseline with treatment of underlying disease 06/22: Patient intermittently gets confused and disoriented. Most likely metabolic encephalopathy. Thrombocytopenia -Appears that his platelet counts fluctuate and are never that robust -Slight drop overnight however may be related to fluids and sepsis 06/19: Repeat platelet count is 83,000. H&H 10.1/31%. 06/20: Hemoglobin 9.8/hematocrit 3 30.7. Platelet count 90,000. Chronic anemia secondary to chronic renal disease -Hemoglobin is stable -Okay to continue apixaban Please see above End-stage renal disease -HD dependent -Continue calcitriol -Continue phosphate binder -Nephrology consult--> discussed with Dr. Weber and we are okay to remove his tunneled dialysis catheter at this time as his fistula is working well 06/19: Will need at least 48 hours for Eliquis to get metabolized from the body before the procedure. But his platelet counts are also low. CAD/HTN/HPL -Previous cardiac catheterization done at [facility] that showed left main coronary with minimal irregularities ramus intermedius with 95% stenosis after being occluded, left anterior descending artery with a long tubular 80% stenosis with calcification and a left circumflex artery with a mid segment which was calcified the proximal with a 40% stenosis and a medium caliber bifurcating lateral branch that has an ostial 90% stenosis. He also has a right coronary artery which had a 75% stenosis in the midsegment had a long tubular 60% stenosis -For this, CABG was considered but medical therapy was ultimately recommended -Continue atorvastatin -Hold Bumex -Hold isosorbide mononitrate Atrial fibrillation -Patient is not on any rate controlling medication -Continue home apixaban -Previous documentation indicates a pacemaker was recommended at some point but he declined and was recommended to avoid AV larry blocking agents due to bradycardic events 06/21: Patient heart rate is slowed in 50s with some sinus pauses and missed heartbeat. Hold rate control medications. PVD -Recent aortogram with right lower extremity runoff on 05/31/2023 -Continue outpatient follow-up with vascular medicine -Continue management for secondary risk factors Diabetic neuropathy -Continue home gabapentin History of DM-2 -Patient had a normal hemoglobin A1c on 05/16/2023 at 4.8 with minimal anemia -Would recommend discontinuation of his glipizide as an outpatient -No need for SSI or Accu-Cheks COPD -Patient does not appear to be on any inhalers at baseline -As needed albuterol -As needed guaifenesin DVT prophylaxis -continue home apixaban CODE STATUS -DNR CCA with no intubation per documentation from the nursing facility Allergies/Procedures Done in Hospital Allergies No Known Allergies Allergy (Verified 04/20/23 15:24) Type of Care/Length of Stay Estimated LOS: Convalescent Care Less Than 30 days Type of Care Needed: Skilled Rehab Potential: Good Prognosis: Good Additional Orders/Day of Discharge Day of Discharge: 06/23/23 Dietary and Speech Recommendations Dietitian Recommendations/Changes: Will adjust diet to 2000 calorie/consistent carbohydrate; Renal. 120mL Nepro BID w/ breakfast and dinner meals. Discharge Plan Admission Admit Date/Time: 06/17/23 16:15 Primary Reason for Your Visit: MRSA bacteremia Attending Provider: Jerson العراقي Primary Care Provider: Gurpreet Prajapati Consulting Providers: Yen Weber; Jacques Corea; Christine Dallas; Wade Garg; Mitzy Owen Discharge Orders/Prescriptions Prescriptions: New vancomycin 1,000 mg recon soln 500 mg IV .mwf Qty: 5 0RF Rx Instructions: 500mg iv vanc dosed with dialysis sessions MWF. Weekly bmp, cbc, and vanc trough while on vancomycin. Fax to [phone]. polyethylene glycol 3350 17 gram Powder In Packet 17 g PO DAILY Qty: 0 0RF isosorbide mononitrate 30 mg Tablet Extended Release 24 Hr 30 mg PO DAILY Qty: 0 0RF sennosides-docusate sodium [Stool Softener-Stimulant Laxat] 8.6-50 mg Tablet 2 tab PO BID Qty: 0 0RF insulin lispro [Humalog KwikPen Insulin] 100 unit/mL Insulin Pen See Protocol subcut ACHS Qty: 0 0RF Protocol: 3. Sliding Scale Insulin Med Dosing Condition: 150-189 mg/dl = 1 unit Condition: 190-229 mg/dl = 2 units Condition: 230-269 mg/dl = 3 units Condition: 270-309 mg/dl = 4 units Condition: 310-349 mg/dl = 5 units Condition: 350-399 mg/dl = 6 units Condition: 400-449 mg/dl = 7 units Condition: Greater than 449 call physician Protocol Text: - Use for Total Daily Dose of Insulin 37-55 units - Obsese, infected, or steroid patients MEDIUM DOSING ALGORITHIM Mucinex DM 30-600 mg Tablet Extended Release 12 Hr 2 tab PO BID 7 Days Qty: 28 0RF Continued Eliquis 2.5 mg tablet 2.5 mg PO BID atorvastatin 40 mg tablet 40 mg PO QHS bumetanide 2 mg tablet 2 mg PO DAILY calcium acetate(phosphat bind) 667 mg capsule 1,334 mg PO TID Rx Instructions: two tabs with meals for dialysis glipizide 2.5 mg tablet 2.5 mg PO BID isosorbide mononitrate 30 mg tablet extended release 24 hr 30 mg PO DAILY Julieta-Luis 0.8 mg tablet 1 tab PO DAILY calcitriol 0.5 mcg capsule 0.5 mcg PO MOWEFR acetaminophen 325 mg capsule 650 mg PO Q4H PRN (Reason: fever) alum-mag hydroxide-simeth [Antacid M] 200-200-20 mg/5 mL suspension 30 ml PO Q4H PRN (Reason: GI DISTRESS) bisacodyl [Dulcolax (bisacodyl)] 10 mg suppository [address] DAILY PRN (Reason: constipation) Rx Instructions: GIVE FOR CONSTIPATION IF 1 EPISODE AFTER MOM INEFFECTIVE. NOTIFY PHYSICIAN IF NO BM IN 4 DAYS diclofenac sodium 1 % gel 2 g topical QHS PRN (Reason: pain) Rx Instructions: APPLY BILATERALLY TO FEET AT BEDTIME FOR PAIN gabapentin 100 mg capsule 100 mg PO BID glucagon HCl [Glucagon (HCl) Emergency Kit] 1 mg recon soln 1 mg IM PRN PRN (Reason: hypoglycemia) Rx Instructions: NEEDED FOR SYMPTOMATIC HYPERGLYCEMIA NOT RESPONSIVE TO ORAL INTERVENTION. NOTIFY UROLOGY SURGEON/MD WHEN USED. dextrose [Glucose Gel] 40 % gel 10 g PO Q15M PRN (Reason: hypoglycemia) Rx Instructions: until symptoms of low blood sugar are controlled nystatin 100,000 unit/gram cream 1 applic topical Q8H PRN (Reason: GROIN IRRITATION) tramadol 50 mg tablet 50 mg PO Q12H PRN (Reason: TOE PAIN ) ondansetron HCl 4 mg tablet 4 mg PO Q8H PRN (Reason: nausea and vomiting) Discontinued acetaminophen 650 mg suppository [address] Q4H PRN (Reason: fever) Enema 19-7 gram/118 mL enema [address] DAILY PRN (Reason: constipation) Rx Instructions: USE FOR CONSTIPATION X2 PER EPISODE IF DOLCOLAX SUPPOSITORY INEFFECTIVE. CALL PHYSICIAN IF NO BM IN 4 DAYS guaifenesin [Adult Tussin Chest Congestion] 100 mg/5 mL liquid 200 mg PO Q4H PRN (Reason: COUGH/CONGESTION ) Referrals / Follow Up: Gurpreet Prajapati MD [Primary Care Provider] - Disposition Disposition (needs filled in before D/C Order can be placed): Home, Self Care
--- NOTE | 2023-06-23 14:56 | DS.PCM_ITS ---
Providers Date of Admission: 06/17/23 Date of Discharge: 06/23/23 Primary Care Physician: Dr. Gurpreet Prajapati MD Consultations 06/17/23 17:10 Consult: Nephrology Routine Consulting Provider: Yen Weber Reason for Consult: ESRD EMERGENT Consult: No Notified: Yes Date Notified: 06/17/23 Time Notified: 16:19 Method of Notification: Verbal 06/18/23 08:09 Consult: Infectious Disease Routine Consulting Provider: Wade Garg Reason for Consult: Staph bacteremia-pt has HD cath EMERGENT Consult: No Notified: Yes Date Notified: 06/19/23 Time Notified: 08:13 Method of Notification: Answering Service 06/18/23 12:10 Consult: General Surgery Routine Consulting Provider: Mitzy Owen Reason for Consult: Tunneled HD cath removal EMERGENT Consult: No Notified: Yes Date Notified: 06/19/23 Time Notified: 08:15 Method of Notification: Text 06/18/23 12:11 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 Was admitted with suspected line infection. 1. Gram-positive cocci in clusters bacteremia--> due to MRSA -Patient does not meet sepsis criteria per Sep 3 protocol as there was no identifiable endorgan damage -2 of 2 blood cultures already showing gram-positive cocci in clusters -Fever curve seems to be improving -White count is slightly better -Suspect source is right-sided permacath -Initially on vancomycin and Zosyn but ID saw the patient and discontinued Zosyn. TTE showed no vegetation. Patient also has some new low back pain and MRI ordered. General surgery is following and plan to remove abdominal dialysis cath after 48 hours of discontinuation of Eliquis.Had last dose on 06/18/2023 at about 8 PM 35: Last blood culture from 06/17 growing Staph aureus,, MRSA. Possible removal of tunneled venous catheter tomorrow as he will complete 48 hours of discontinuation of Eliquis. Hemoglobin and thrombocytopenia are better. 06/20: On IV vancomycin. Random vancomycin level 21.4 06/21: Catheter tip culture from 06/20, rare gram-positive cocci. 3+ WBC. 2 blood culture from 06/18 shows no growth in 48 hours. Blood cultures from 06/19 are pending. 06/22: Prelim catheter tip culture shows staph species, final culture pending. Blood culture from 06/19 shows no growth. Last blood culture positive of MRSA was 06/17. ID prescribed vancomycin during the dialysis days. Possible COPD exacerbation: Patient has history of smoking started at the age of 15 states about 3 to 4 cigarettes during latter part and then quit at the age of 40. Patient is mild respiratory distress shortness of breath. No wheezing therefore started on scheduled bronchodilator, IV Solu-Medrol, Mucinex, incentive spirometry and Pep. Chest x-ray portable ordered 06/21: Chest x-ray shows mild interstitial edema and removal of dialysis catheter. No pneumothorax. Continuing all treatment. 06/22: Patient is on room air. Not tachypneic. Not short of breath. Continue incentive spirometry and Pep for 1 more week. Follow-up in pulmonary clinic. Toxic/metabolic encephalopathy -Likely related to the above -Should improve back to baseline with treatment of underlying disease 06/22: Patient intermittently gets confused and disoriented. Most likely me tabolic encephalopathy. Thrombocytopenia -Appears that his platelet counts fluctuate and are never that robust -Slight drop overnight however may be related to fluids and sepsis 06/19: Repeat platelet count is 83,000. H&H 10.1/31%. 06/20: Hemoglobin 9.8/hematocrit 3 30.7. Platelet count 90,000. Chronic anemia secondary to chronic renal disease -Hemoglobin is stable -Okay to continue apixaban Please see above End-stage renal disease -HD dependent -Continue calcitriol -Continue phosphate binder -Nephrology consult--> discussed with Dr. Weber and we are okay to remove his tunneled dialysis catheter at this time as his fistula is working well 06/19: Will need at least 48 hours for Eliquis to get metabolized from the body before the procedure. But his platelet counts are also low. CAD/HTN/HPL -Previous cardiac catheterization done at [facility] that showed left main coronary with minimal irregularities ramus intermedius with 95% stenosis after being occluded, left anterior descending artery with a long tubular 80% stenosis with calcification and a left circumflex artery with a mid segment which was calcified the proximal with a 40% stenosis and a medium caliber bifurcating lateral branch that has an ostial 90% stenosis. He also has a right coronary artery which had a 75% stenosis in the midsegment had a long tubular 60% stenosi s -For this, CABG was considered but medical therapy was ultimately recommended -Continue atorvastatin -Hold Bumex -Hold isosorbide mononitrate Atrial fibrillation -Patient is not on any rate controlling medication -Continue home apixaban -Previous documentation indicates a pacemaker was recommended at some point but he declined and was recommended to avoid AV larry blocking agents due to emiliano cardic events 06/21: Patient heart rate is slowed in 50s with some sinus pauses and missed heartbeat. Hold rate control medications. PVD -Recent aortogram with right lower extremity runoff on 05/31/2023 -Continue outpatient follow-up with vascular medicine -Continue management for secondary risk factors Diabetic neuropathy -Continue home gabapentin History of DM-2 -Patient had a normal hemoglobin A1c on 05/16/2023 at 4.8 with minimal anemia -Would recommend discontinuation of his glipizide as an outpatient -No need for SSI or Accu-Cheks Chronic constipation: Advised soapsuds enema as needed along with Dulcolax suppository as needed for severe constipation. DVT prophylaxis -continue home apixaban CODE STATUS -DNR CCA with no intubation per documentation from the nursing facility Discharge medication reconciliation done. Discharge follow-up instructions completed. Discharge process discussed with the patient and all questions were answered to patient's satisfaction. Follow with PCP in 1 to 2 weeks Total time spent, exact 35 minutes on discharge meds reconciliation, examinatio n, coordination of care with nurses and ancillary staff, review of imaging and blood test and discussion with the patient on follow-up instructions. Medications at Discharge Home Medications apixaban 2.5 mg tablet (Eliquis) 2.5 mg PO BID 02/23/23 atorvastatin 40 mg tablet 40 mg PO QHS 02/23/23 bumetanide 2 mg tablet 2 mg PO DAILY 02/23/23 calcium acetate(phosphat bind) 667 mg capsule 1,334 mg PO TID 02/23/23 glipizide 2.5 mg tablet 2.5 mg PO BID 11/09/23 isosorbide mononitrate 30 mg tablet,extended release 24 hr 30 mg PO DAILY 02/23/23 vitamin B complex-vitamin C-folic acid 0.8 mg tablet (Julieta-Luis) 1 tab PO DAILY 02/23/23 calcitriol 0.5 mcg capsule 0.5 mcg PO MOWEFR 04/20/23 acetaminophen 325 mg capsule 650 mg PO Q4H PRN fever 06/17/23 aluminum-mag hydroxide-simethicone 200 mg-200 mg-20 mg/5 mL oral susp (Antacid M) 30 ml PO Q4H PRN GI DISTRESS 06/17/23 bisacodyl 10 mg rectal suppository (Dulcolax (bisacodyl)) 10 mg OK DAILY PRN constipation 06/17/23 dextrose 40 % oral gel (Glucose Gel) 10 g PO Q15M PRN hypoglycemia 06/17/23 diclofenac sodium 1 % topical gel 2 g topical QHS PRN pain 06/17/23 gabapentin 100 mg capsule 100 mg PO BID NERVE PAIN 06/17/23 glucagon HCl 1 mg solution for injection (Glucagon (HCl) Emergency Kit) 1 mg IM PRN PRN hypoglycemia 06/17/23 nystatin 100,000 unit/gram topical cream 1 applic topical Q8H PRN GROIN IRRITATION 06/17/23 ondansetron HCl 4 mg tablet 4 mg PO Q8H PRN nausea and vomiting 06/17/23 tramadol 50 mg tablet 50 mg PO Q12H PRN TOE PAIN 06/17/23 dextromethorphan-guaifenesin 30 mg-600 mg tablet extended vvocpop83 hr (Mucinex DM) 2 tab PO BID 7 days #28 tabs 06/23/23 insulin lispro 100 unit/mL subcutaneous pen (Humalog KwikPen (U-100) Insulin) See Protocol subcut ACHS #0 mL 06/23/23 isosorbide mononitrate 30 mg tablet,extended release 24 hr 30 mg PO DAILY #0 tabs 06/23/23 polyethylene glycol 3350 17 gram oral powder packet 17 g PO DAILY #0 ea 06/23/23 sennosides 8.6 mg-docusate sodium 50 mg tablet (Stool Softener-Stimulant Laxative) 2 tab PO BID #0 tabs 06/23/23 vancomycin 1,000 mg intravenous injection 500 mg IV .mwf #5 ea 06/23/23 Physical Exam Narrative Seen and examined. Overnight events reviewed. On further questioning it seems patient is not disoriented but is more grumpy and wants to be discharged. Had right IJ tunnel dialysis catheter removed. On hemodialysis. Heart rate in 50s. Physical exam General: Lethargic, oriented x2, Cooperative, BMI is 27.6 kg/m? HEENT: Atraumatic, PERRLA, EOMI, Normocephalic Oral: Oral mucosa dry. No Gingival or Mucosal Lesions/ Ulcerations Neck: Supple, No JVD, Negative Carotid Bruits Chest wall/Lungs: Air entry diminished in bilateral lung bases. Bilateral expiratory rhonchi. Cardiovascular: Irregular rhythm, A-fib, Normal S1, Normal S2, No M/G/R Abdomen: Bowel Sounds Present, Soft, Non Tender, Non-Distended : On hemodialysis. Discontinue Palomo catheter. No renal angle tenderness. No suprapubic tenderness. Extremities: No edema, Capillary Refill Less than 3 Seconds Skin: No rashes, No breakdown Musculoskeletal: No Tenderness to Palpation of Joints or Extremities ROM restricted Neurological: Cranial nerves II-XII grossly intact, DTR 2+/4. No acute focal neurological deficit. Psych/Mental Status: Flat affect. Weight / BMI Weight Weight: 198 lb 6.656 oz Body Mass Index (BMI) 26.9 ABG / Lab / Microbiology Data 06/22/23 04:15 06/22/23 04:15 Laboratory: Laboratory Results - last 24 hr 06/22/23 16:58: POC Glucose 318 H 06/22/23 21:21: POC Glucose 309 H 06/23/23 05:51: Random Vancomycin 15.8 H 06/23/23 08:11: POC Glucose 254 H 06/23/23 11:25: POC Glucose 232 H Microbiology: Microbiology 06/21/23 12:05 Catheter tip - Cvp Cath Tip Gram Stain - Final 06/21/23 12:05 Catheter tip - Cvp Cath Tip Wound Culture - Preliminary Staphylococcus species 06/21/23 12:05 Catheter tip - Cvp Cath Tip Anaerobic Culture - Preliminary Checking for anaerobes, further studies to follow. 06/20/23 14:00 Blood Culture (Wb) - Anticubital Right Blood Culture - Preliminary No growth in 48 hours. 06/18/23 08:27 Blood Culture (Wb) - Right Wrist Blood Culture - Final Staphylococcus aureus 06/18/23 08:33 Blood Culture (Wb) - Right Hand Blood Culture - Final Staphylococcus aureus 06/17/23 14:34 Blood Culture (Wb) - Right Forearm Blood Culture - Final Staphylococcus aureus 06/19/23 04:00 Blood Culture (Wb) - Right Hand Blood Culture - Preliminary No growth in 48 hours. 06/19/23 04:00 Blood Culture (Wb) - Right Wrist Blood Culture - Preliminary No growth in 48 hours. 06/17/23 14:22 Blood Culture (Wb) - Anticubital Right Bacteria Detection (PCR) - Final Staphylococcus aureus mecA Resistance Marker 06/17/23 14:22 Blood Culture (Wb) - Anticubital Right Blood Culture - Final Meth. resistant Staph. aureus 06/19/23 15:00 Stool Clostridioides difficile (PCR) - Final 06/17/23 14:53 Urine, Catheterized Urine Culture - Final Culture exhibits no growth. 06/17/23 14:22 Mucosa - Nose SARS-CoV-2, Influenza & RSV (PCR) - Final Meaningful Use Info Meaningful Use Diagnoses (Choose all that apply): None applicable Discharge Plan Admission Admit Date/Time: 06/17/23 16:15 Primary Reason for Your Visit: MRSA bacteremia Attending Provider: Jerson العراقي Primary Care Provider: Gurpreet Prajapati Consulting Providers: Yen Weber; Jacques Corea; Christine Dallas; Wade Garg; Mitzy Owen Discharge Orders/Prescriptions Prescriptions: New vancomycin 1,000 mg recon soln 500 mg IV .mwf Qty: 5 0RF Rx Instructions: 500mg iv vanc dosed with dialysis sessions MWF. Weekly bmp, cbc, and vanc trough while on vancomycin. Fax to [phone]. polyethylene glycol 3350 17 gram Powder In Packet 17 g PO DAILY Qty: 0 0RF isosorbide mononitrate 30 mg Tablet Extended Release 24 Hr 30 mg PO DAILY Qty: 0 0RF sennosides-docusate sodium [Stool Softener-Stimulant Laxat] 8.6-50 mg Tablet 2 tab PO BID Qty: 0 0RF insulin lispro [Humalog KwikPen Insulin] 100 unit/mL Insulin Pen See Protocol subcut ACHS Qty: 0 0RF Protocol: 3. Sliding Scale Insulin Med Dosing Condition: 150-189 mg/dl = 1 unit Condition: 190-229 mg/dl = 2 units Condition: 230-269 mg/dl = 3 units Condition: 270-309 mg/dl = 4 units Condition: 310-349 mg/dl = 5 units Condition: 350-399 mg/dl = 6 units Condition: 400-449 mg/dl = 7 units Condition: Greater than 449 call physician Protocol Text: - Use for Total Daily Dose of Insulin 37-55 units - Obsese, infected, or steroid patients MEDIUM DOSING ALGORITHIM Mucinex DM 30-600 mg Tablet Extended Release 12 Hr 2 tab PO BID 7 Days Qty: 28 0RF Continued Eliquis 2.5 mg tablet 2.5 mg PO BID atorvastatin 40 mg tablet 40 mg PO QHS bumetanide 2 mg tablet 2 mg PO DAILY calcium acetate(phosphat bind) 667 mg capsule 1,334 mg PO TID Rx Instructions: two tabs with meals for dialysis glipizide 2.5 mg tablet 2.5 mg PO BID isosorbide mononitrate 30 mg tablet extended release 24 hr 30 mg PO DAILY Julieta-Luis 0.8 mg tablet 1 tab PO DAILY calcitriol 0.5 mcg capsule 0.5 mcg PO MOWEFR acetaminophen 325 mg capsule 650 mg PO Q4H PRN (Reason: fever) alum-mag hydroxide-simeth [Antacid M] 200-200-20 mg/5 mL suspension 30 ml PO Q4H PRN (Reason: GI DISTRESS) bisacodyl [Dulcolax (bisacodyl)] 10 mg suppository 10 mg OK DAILY PRN (Reason: constipation) Rx Instructions: GIVE FOR CONSTIPATION IF 1 EPISODE AFTER MOM INEFFECTIVE. NOTIFY PHYSICIAN IF NO BM IN 4 DAYS diclofenac sodium 1 % gel 2 g topical QHS PRN (Reason: pain) Rx Instructions: APPLY BILATERALLY TO FEET AT BEDTIME FOR PAIN gabapentin 100 mg capsule 100 mg PO BID glucagon HCl [Glucagon (HCl) Emergency Kit] 1 mg recon soln 1 mg IM PRN PRN (Reason: hypoglycemia) Rx Instructions: NEEDED FOR SYMPTOMATIC HYPERGLYCEMIA NOT RESPONSIVE TO ORAL INTERVENTION. NOTIFY MIS SPECIALIST/MD WHEN USED. dextrose [Glucose Gel] 40 % gel 10 g PO Q15M PRN (Reason: hypoglycemia) Rx Instructions: until symptoms of low blood sugar are controlled nystatin 100,000 unit/gram cream 1 applic topical Q8H PRN (Reason: GROIN IRRITATION) tramadol 50 mg tablet 50 mg PO Q12H PRN (Reason: TOE PAIN ) ondansetron HCl 4 mg tablet 4 mg PO Q8H PRN (Reason: nausea and vomiting) Discontinued acetaminophen 650 mg suppository 650 mg OK Q4H PRN (Reason: fever) Enema 19-7 gram/118 mL enema 118 ml OK DAILY PRN (Reason: constipation) Rx Instructions: USE FOR CONSTIPATION X2 PER EPISODE IF DOLCOLAX SUPPOSITORY INEFFECTIVE. CALL PHYSICIAN IF NO BM IN 4 DAYS guaifenesin [Adult Tussin Chest Congestion] 100 mg/5 mL liquid 200 mg PO Q4H PRN (Reason: COUGH/CONGESTION ) Referrals / Follow Up: Gurpreet Prajapati MD [Primary Care Provider] - Disposition Disposition (needs filled in before D/C Order can be placed): Home, Self Care Charges/Coding Visit Charges Inpatient E&M: 57569 Disch Hosp >30min
[2023-06-23] MEDS: Vancomycin IV 500 MG/100 ML BAG 100 MG IV (16:20)
[2023-06-23 16:54] LABS: Bedside Glucose 258 mg/dL (74-106)
--- NOTE | 2023-06-23 19:08 | NURSING ---
This RN called and gave report to Roxane RUDOLPH at [facility] at this time. She is also aware that transport is not here yet.
[2023-06-23] MEDS: Ipratropium/Albuterol Sulfate 3 ML AMPUL.NEB INHALATION (19:17)
--- NOTE | 2023-06-23 19:42 | NURSING ---
Report given to [facility], pt left this unit at 1940.
== END 2023-06-23 19:40 | disposition home or self-care (01) | DRG 280 ==
LOC: ED 15:50 → PCU 16:27 → ICU 06-19 05:40
PROVIDERS: Family Medicine; Internal Medicine; Surgery; Admitting Provider Internal Medicine; Emergency Provider Emergency Medicine; PCP Family Medicine; Visit Provider Internal Medicine
DX: T82.7XXA Infection and inflammatory reaction due to other cardiac and vascular devices, implants and grafts, initial encounter (principal); I22.2 Subsequent non-ST elevation (NSTEMI) myocardial infarction; N18.6 End stage renal disease; G92.8 Other toxic encephalopathy; R78.81 Bacteremia; E87.1 Hypo-osmolality and hyponatremia; I12.0 Hypertensive chronic kidney disease with stage 5 chronic kidney disease or end stage renal disease; J44.1 Chronic obstructive pulmonary disease with (acute) exacerbation; D69.6 Thrombocytopenia, unspecified; D63.1 Anemia in chronic kidney disease; E11.22 Type 2 diabetes mellitus with diabetic chronic kidney disease; I73.9 Peripheral vascular disease, unspecified; E11.40 Type 2 diabetes mellitus with diabetic neuropathy, unspecified; I48.91 Unspecified atrial fibrillation; Z99.2 Dependence on renal dialysis; I25.10 Atherosclerotic heart disease of native coronary artery without angina pectoris; E78.5 Hyperlipidemia, unspecified; M54.50 Low back pain, unspecified; F17.210 Nicotine dependence, cigarettes, uncomplicated; R09.02 Hypoxemia; Z66 Do not resuscitate; Z79.01 Long term (current) use of anticoagulants; B95.62 Methicillin resistant Staphylococcus aureus infection as the cause of diseases classified elsewhere
CPT/HCPCS: 36415; 51702; 71045; 72148; 80048; 80053; 80202; 81001; 82962; 83605; 83735; 84100; 84443; 84484; 85025; 85027; 85610; 85730; 86850; 86900; 86901; 86920; 86922; 87040; 87070; 87075; 87077; 87086; 87149; 87186; 87205; 87493; 87631; 87641; 90937; 93005; 93306; 94640; 94668; 94762; 97162; 97166; 97530; 97535; 97802; 97803; 99285; J7030; J7040; J7050; P9016; P9047; A4216; G0257

== ENCOUNTER 2023-06-28 13:59 | Emergency (ER) | payer MEDICARE, SELFPAY ==
[2023-06-28] VITALS (10 sets, daily range): BP systolic 110–132; BP diastolic 46–75; PULSE 37–58; RESP 15–20; TEMP 36.2–36.6; O2SAT 90–100; BMI 29.2
--- NOTE | 2023-06-28 14:30 | EKG12_ITS ---
Test Reason : WEAKNESS, DYSRHYTHMIA Blood Pressure : / mmHG Vent. Rate : 051 BPM Atrial Rate : 000 BPM P-R Int : 000 ms QRS Dur : 134 ms QT Int : 326 ms P-R-T Axes : 000 189 258 degrees QTc Int : 300 ms Atrial fibrillation with slow ventricular response Right bundle branch block Abnormal ECG Confirmed by Mukund Dawson ([id number]), supervising film or videotape editor ZELALEM VELEZ ([id number]) on 06/30/2023 2:05:32 PM Referred By: SHIVA Confirmed By:Mukund Dawson
--- NOTE | 2023-06-28 14:31 | EX.ED.DYSGE1 ---
HPI History of Present Illness Chief Complaint: Weakness Detail of Chief Complaint: Generalized weakness Informant: patient and EMS Narrative Narrative: Patient brought to the emergency department [facility] for generalized weakness. Currently being treated for a dialysis catheter infection and they are concerned about sepsis possibly. Patient somewhat of a poor historian. He tells me his last dialysis was a couple days ago and they did in his left arm. He denies fevers or chills. He denies chest pain or abdominal pain. He generally feels weak. [facility] Medical History Atherosclerotic heart disease of [place] coronary artery without angina pectoris COPD (chronic obstructive pulmonary disease) Encephalopathy Hepatitis A Hepatitis B Hiatal hernia with GERD without esophagitis Hyperlipidemia Muscle weakness TWYLA (obstructive sleep apnea) Rhabdomyolysis Secondary hyperparathyroidism Home Medications apixaban 2.5 mg tablet (Eliquis) 2.5 mg PO BID 02/23/23 [History Last Taken 05/30/23] atorvastatin 40 mg tablet 40 mg PO QHS 02/23/23 [History Last Taken Unknown] bumetanide 2 mg tablet 2 mg PO DAILY 02/23/23 [History Last Taken Unknown] calcium acetate(phosphat bind) 667 mg capsule 1,334 mg PO TID 02/23/23 [History Last Taken Unknown] glipizide 2.5 mg tablet 2.5 mg PO BID 02/23/23 [History Last Taken 05/30/23] isosorbide mononitrate 30 mg tablet,extended release 24 hr 30 mg PO DAILY 02/23/23 [History Last Taken Unknown] vitamin B complex-vitamin C-folic acid 0.8 mg tablet (Julieta-Luis) 1 tab PO DAILY 02/23/23 [History Last Taken Unknown] calcitriol 0.5 mcg capsule 0.5 mcg PO MOWEFR 04/20/23 [History Last Taken Unknown] acetaminophen 325 mg capsule 650 mg PO Q4H PRN fever 06/17/23 [History Last Taken Unknown] aluminum-mag hydroxide-simethicone 200 mg-200 mg-20 mg/5 mL oral susp (Antacid M) 30 ml PO Q4H PRN GI DISTRESS 06/17/23 [History Last Taken Unknown] bisacodyl 10 mg rectal suppository (Dulcolax (bisacodyl)) 10 mg RI DAILY PRN constipation 06/17/23 [History Last Taken Unknown] dextrose 40 % oral gel (Glucose Gel) 10 g PO Q15M PRN hypoglycemia 06/17/23 [History Last Taken Unknown] diclofenac sodium 1 % topical gel 2 g topical QHS PRN pain 06/17/23 [History Last Taken Unknown] gabapentin 100 mg capsule 100 mg PO BID NERVE PAIN 06/17/23 [History Last Taken Unknown] glucagon HCl 1 mg solution for injection (Glucagon (HCl) Emergency Kit) 1 mg IM PRN PRN hypoglycemia 06/17/23 [History Last Taken Unknown] nystatin 100,000 unit/gram topical cream 1 applic topical Q8H PRN GROIN IRRITATION 06/17/23 [History Last Taken Unknown] ondansetron HCl 4 mg tablet 4 mg PO Q8H PRN nausea and vomiting 06/17/23 [History Last Taken Unknown] tramadol 50 mg tablet 50 mg PO Q12H PRN TOE PAIN 06/17/23 [History Last Taken Unknown] dextromethorphan-guaifenesin 30 mg-600 mg tablet extended [id number] hr (Mucinex DM) 2 tab PO BID 7 days #28 tabs 06/23/23 [Rx Last Taken Unknown] insulin lispro 100 unit/mL subcutaneous pen (Humalog KwikPen (U-100) Insulin) See Protocol subcut ACHS #0 mL 06/23/23 [Rx Last Taken Unknown] isosorbide mononitrate 30 mg tablet,extended release 24 hr 30 mg PO DAILY #0 tabs 06/23/23 [Rx Last Taken Unknown] polyethylene glycol 3350 17 gram oral powder packet 17 g PO DAILY #0 ea 06/23/23 [Rx Last Taken Unknown] sennosides 8.6 mg-docusate sodium 50 mg tablet (Stool Softener-Stimulant Laxative) 2 tab PO BID #0 tabs 06/23/23 [Rx Last Taken Unknown] vancomycin 1,000 mg intravenous injection 500 mg IV .mwf #5 ea 06/23/23 [Rx Last Taken Unknown] Allergy/AdvReac Type Severity Reaction Status Date / Time No Known Allergies Allergy Verified 06/28/23 14:07 Family History no significant family his Social History housing: 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 Smoking Status: Never smoker ROS ROS ED Review of Systems ROS Unobtainable: other Constitutional Constitutional ED: Reports lethargy; Denies chills, fever(s), sweats or weight loss Eyes Eyes: Denies blurry vision, change in vision or diplopia ENT ENT ED: Denies rhinorrhea or sore throat Cardiovascular Cardiovascular: Denies chest pain, orthopnea or racing heartbeat Respiratory/Chest Respiratory/Chest: Reports dyspnea; Denies cough, dyspnea on exertion, orthopnea or sputum Gastrointestinal Gastrointestinal: Denies abdominal pain, diarrhea, nausea or vomiting Genitourinary Genitourinary ED: Denies dysuria, hematuria or urinary frequency Musculoskeletal Musculoskeletal: Denies arthralgias, back pain, myalgias or neck pain Integumentary Denies abscess, Abrasions or rash Neurologic Neurologic: Reports weakness; Denies headache(s) Psychiatric Psychiatric: Denies anxiety, depression or suicidal thoughts Endocrine Endocrinology: Denies polydipsia, polyphagia or polyuria Hematologic/Lymphatic Hematologic/Lymphatic: Denies easy bleeding, easy bruising or lymphadenopathy Allergic/Immunologic Allergic/Immunologic ED: Denies mouth swelling, tongue swelling or urticaria EXAM Physical Exam Const Vital Signs: 06/28/23 14:04 06/28/23 14:07 06/28/23 14:08 Temperature 97.8 F 97.8 F Temperature Source Oral Oral Pulse Rate 58 L 58 L Respiratory Rate 15 19 H Respiratory Effort Normal Non-Labored Respiratory Pattern Normal Blood Pressure 110/64 110/64 Blood Pressure Mean 79 79 Pulse Ox 93 93 Oxygen Delivery Method Room Air Room Air Oxygen Flow Rate (L/min) 06/28/23 14:10 06/28/23 14:11 06/28/23 15:06 Temperature 98 F Temperature Source Temporal Pulse Rate 48 L Respiratory Rate 15 Respiratory Effort Respiratory Pattern Blood Pressure 117/48 L Blood Pressure Mean 71 Pulse Ox 90 94 96 Oxygen Delivery Method Room Air Nasal Cannula Nasal Cannula Oxygen Flow Rate (L/min) 2 2 Positive well nourished and well developed General Appearance ED: well developed and NAD HEENT Reports TM's clear and moist mucous membranes normocephalic and atraumatic; Negative for trauma or tenderness Tympanic Membrane ED: Yes TM's clear Eyes PERRL and EOMs intact bilaterally General Eye ED: Negative for pale conjunctiva or scleral icterus Neck no lymphadenopathy, supple and no JVD General: Negative for tenderness Chest Wall inspection of chest normal and palpation of chest normal Chest: Negative for tenderness Resp normal respiratory effort and clear to auscultation bilaterally Resp Narrative: Few rales in bases. Mild tachypnea. No accessory muscle use or retractions. Effort and Inspection: Negative for respiratory distress or pain with movement Auscultation: rales; Negative for rhonchi, wheezes or diminished lung sounds Cardio regular rate, regular rhythm, S1 normal heart sound, S2 normal heart sound and no murmurs Peripheral Pulses: pulses 2+ throughout GI normal to inspection, nondistended, normoactive bowel sounds, soft to palpation, non-tender, non-distended and no masses Back/Spine no CVA tenderness and no thoracic nor lumbar tenderness Extremity normal to inspection Extremity Narrative: Patient has a AV fistula in the left arm with a good thrill. General Extremety ED: Negative for edema General Extremity: Negative for edema Neuro oriented x3, CN's II-XII intact bilaterally, no sensory deficits noted and gait normal Sensorium / Orientation: awake, alert, oriented to person, oriented to place and oriented to time Motor Exam: strength 5/5 throughout and strength abnormal Psych mental status grossly normal Skin no rashes or lesions noted and no wounds MDM MDM MDM Narrative Medical decision making narrative: Patient presents with generalized weakness. Poor historian. He is a dialysis patient with history of coronary artery disease and history of COPD. Normally on oxygen at the jail. Apparently has had frequent falls. EKG obtained arrival showed atrial fibrillation with ventricular rate of 51 bpm with right bundle branch block. CBC with differential showed white count of 9.6 with hemoglobin 9.1 and platelet count of 89,000. Chemistries unremarkable. BUN 70 creatinine 7.29. Lactate was normal at 1.6. Troponin was normal at 69. 1 view chest x-ray obtained showed some evidence of CHF. While in the emergency department patient's somnolent but able to be aroused and appropriate. While in department also noted that his heart rate would drop down consistently into the upper 30s to low 40s. This point etiology of his weakness unclear. Will discuss with hospitalist to evaluate. We did call the jail and got more information apparently has fallen 4 times today. Patient on Eliquis. Will order CT of patient brain and CT of the abdomen pelvis to evaluate further for traumatic injuries. Care of patient will be turned over to evening physician awaiting results of CTs and final disposition. Also concern over patient's bradycardia. Lab Data Attestation: I reviewed the patient's lab results. Labs: Laboratory Results - last 24 hr 06/28/23 14:48 WBC 9.6 RBC 2.74 L Hgb 9.1 L Hct 28.7 L MCV 104.7 H MCH 33.2 H MCHC 31.7 L RDW Std Deviation 65.0 H RDW Coeff of Chloe 17.0 H Plt Count 89 L MPV 10.0 Neut % (Auto) Not Reportable Absolute Neuts (auto) 6.5 Absolute Lymphs (auto) 2.01 Total Counted 100 Neutrophils % (Manual) 63 Band Neutrophils % 5 Lymphocytes % (Manual) 21 Monocytes % (Manual) 9 Eosinophils % (Manual) 1 Metamyelocytes % [address] Review May foll Sodium 137 Potassium 4.2 Chloride 99 Carbon Dioxide 28.0 Anion Gap 10 BUN 70 H Creatinine 7.29 H Estim Creat Clear Calc 9.46 Est GFR (MDRD) Af Amer 9 L Est GFR (MDRD) Non-Af 8 L BUN/Creatinine Ratio 9.6 L Glucose 185 H Lactic Acid 1.6 Calcium 8.4 L Total Bilirubin 0.90 AST 29 ALT 76 H Alkaline Phosphatase 150 H Troponin I High Sens 69 Total Protein 5.8 L Albumin 3.0 L Globulin 2.8 Albumin/Globulin Ratio 1.1 Radiography Diagnostic Testing: Clinical Impression(s) from Imaging Studies Chest X-Ray 06/28/23 15:00 IMPRESSION: Cardiomegaly and mild CHF with bibasilar atelectasis. Electronically Signed: Gopi Garrison MD at 15:19 EDT , 1 view chest x-ray obtained interpreted by myself as cardiomegaly and mild pulmonary congestion. Radiology felt there was cardiomegaly and mild CHF. EKG Initial EKG: Attestation: I personally reviewed and interpreted this EKG as follows: Comments: Atrial fibrillation with rate of 51 bpm with right bundle branch block Discharge Plan Triage Chief Complaint: Weakness ED Provider: Se Juan Dx/Rx/DC Orders Clinical Impression: Weakness, Falls Prescriptions: No Action Eliquis 2.5 mg tablet 2.5 mg PO BID atorvastatin 40 mg tablet 40 mg PO QHS bumetanide 2 mg tablet 2 mg PO DAILY calcium acetate(phosphat bind) 667 mg capsule 1,334 mg PO TID Rx Instructions: two tabs with meals for dialysis glipizide 2.5 mg tablet 2.5 mg PO BID isosorbide mononitrate 30 mg tablet extended release 24 hr 30 mg PO DAILY Julieta-Luis 0.8 mg tablet 1 tab PO DAILY calcitriol 0.5 mcg capsule 0.5 mcg PO MOWEFR acetaminophen 325 mg capsule 650 mg PO Q4H PRN (Reason: fever) alum-mag hydroxide-simeth [Antacid M] 200-200-20 mg/5 mL suspension 30 ml PO Q4H PRN (Reason: GI DISTRESS) bisacodyl [Dulcolax (bisacodyl)] 10 mg suppository 10 mg RI DAILY PRN (Reason: constipation) Rx Instructions: GIVE FOR CONSTIPATION IF 1 EPISODE AFTER MOM INEFFECTIVE. NOTIFY PHYSICIAN IF NO BM IN 4 DAYS diclofenac sodium 1 % gel 2 g topical QHS PRN (Reason: pain) Rx Instructions: APPLY BILATERALLY TO FEET AT BEDTIME FOR PAIN gabapentin 100 mg capsule 100 mg PO BID glucagon HCl [Glucagon (HCl) Emergency Kit] 1 mg recon soln 1 mg IM PRN PRN (Reason: hypoglycemia) Rx Instructions: NEEDED FOR SYMPTOMATIC HYPERGLYCEMIA NOT RESPONSIVE TO ORAL INTERVENTION. NOTIFY BUSINESS ANALYST MANAGER/MD WHEN USED. dextrose [Glucose Gel] 40 % gel 10 g PO Q15M PRN (Reason: hypoglycemia) Rx Instructions: until symptoms of low blood sugar are controlled nystatin 100,000 unit/gram cream 1 applic topical Q8H PRN (Reason: GROIN IRRITATION) tramadol 50 mg tablet 50 mg PO Q12H PRN (Reason: TOE PAIN ) ondansetron HCl 4 mg tablet 4 mg PO Q8H PRN (Reason: nausea and vomiting) vancomycin 1,000 mg recon soln 500 mg IV .mwf Qty: 5 0RF Rx Instructions: 500mg iv vanc dosed with dialysis sessions MWF. Weekly bmp, cbc, and vanc trough while on vancomycin. Fax to [phone]. polyethylene glycol 3350 17 gram Powder In Packet 17 g PO DAILY Qty: 0 0RF isosorbide mononitrate 30 mg Tablet Extended Release 24 Hr 30 mg PO DAILY Qty: 0 0RF sennosides-docusate sodium [Stool Softener-Stimulant Laxat] 8.6-50 mg Tablet 2 tab PO BID Qty: 0 0RF insulin lispro [Humalog KwikPen Insulin] 100 unit/mL Insulin Pen See Protocol subcut ACHS Qty: 0 0RF Protocol: 3. Sliding Scale Insulin Med Dosing Condition: 150-189 mg/dl = 1 unit Condition: 190-229 mg/dl = 2 units Condition: 230-269 mg/dl = 3 units Condition: 270-309 mg/dl = 4 units Condition: 310-349 mg/dl = 5 units Condition: 350-399 mg/dl = 6 units Condition: 400-449 mg/dl = 7 units Condition: Greater than 449 call physician Protocol Text: - Use for Total Daily Dose of Insulin 37-55 units - Obsese, infected, or steroid patients MEDIUM DOSING ALGORITHIM Mucinex DM 30-600 mg Tablet Extended Release 12 Hr 2 tab PO BID 7 Days Qty: 28 0RF Primary Care Provider: Gurpreet Prajapati Referrals: Gurpreet Prajapati MD [Primary Care Provider] -
--- NOTE | 2023-06-28 15:00 | RAD_ITS ---
STUDY: X-RAY CHEST REASON FOR EXAM: Male, 82 years old. Dyspnea TECHNIQUE: Single AP portable view of the chest. COMPARISON: Comparison is made with prior study dated June 21, 2023. FINDINGS: EKG electrodes are seen. Basilar congestion and mild degree of CHF. Bibasilar atelectasis. Blunting of the costo phrenic angles bilaterally. Sternal cerclage wires and vascular clips are present from a prior sternotomy and coronary artery bypass graft procedure (CABG). Normal mediastinum and abdifatah. Normal visualized pulmonary arteries. There is atherosclerotic calcification of the aortic arch with tortuosity. There are diffuse degenerative changes of the visualized thoracic spine. Normal visualized ribs, clavicles, and shoulders. There is no demonstrated abnormality of the visualized soft tissue structures of the upper abdomen. RAD/Chest 1 View (Portable) IMPRESSION: Cardiomegaly and mild CHF with bibasilar atelectasis. Electronically Signed: Gopi Garrison MD at 15:19 EDT ,
[2023-06-28 15:02] LABS: Hematocrit 28.7 % (40-54); Hemoglobin 9.1 g/dL (13.0-16.5); Mean Corp Hgb Conc 31.7 g/dL (32-36); Mean Corpuscular Hgb 33.2 pg (27.0-32.0); Mean Corpuscular Volume 104.7 fL (80-94); POSITIVE COUNT YES; POSITIVE MORPHOLOGY YES; Platelet Count 89 K/mm3 (150-450); Red Blood Count 2.74 M/mm3 (4.6-6.2); White Blood Count 9.6 K/mm3 (4.4-11.0)
[2023-06-28 15:16] LABS: Differential Indicated MANUAL DIFF
[2023-06-28 15:19] LABS: ALB/GLOB Ratio 1.1 RATIO (0.9-2.4); AST(SGOT) 29 U/L (15-37); Alanine Aminotransfer ALT/SGPT 76 U/L (16-61); Alkaline Phosphatase 150 U/L (45-117); Anion Gap 10 (5-15); BUN 70 mg/dL (7-18); BUN/Creat Ratio 9.6 RATIO (10-20); Calcium,Total 8.4 mg/dL (8.5-10.1); Chloride 99 mmol/L (98-107); Creatinine, Serum 7.29 mg/dL (0.70-1.30); EST Glomerular Filtration Rate 8 mL/min (>60); Est Glom Filt Rate - Afr Amer 9 mL/min (>60); Estimated Creatinine Clearance 9.46 ml/min; Globulin 2.8 g/dL (2.2-4.2); Glucose 185 mg/dL (74-106); Potassium 4.2 mmol/L (3.5-5.1); Protein, Total 5.8 g/dL (6.4-8.2); Sodium Level 137 mmol/L (136-145); Troponin-I HS 69 pg/mL (3.0-78.0)
[2023-06-28 15:23] LABS: Lactic Acid 1.6 mmol/L (0.4-1.9)
[2023-06-28 15:55] LABS: Eosinophil 1 % (0-5); Lymphocyte 21 % (19-41); Metamyelocyte 1 % (0-1); Monocyte 9 % (0-10); Neutrophil-Band 5 % (0-5); Neutrophil-Segmented 63 % (47-70); Total Cells Counted 100 (MANUAL DIFF)
[2023-06-28 15:57] LABS: Absolute Lymphocyte Count 2.01 X10^3/uL (0.83-4.51); Absolute Neutrophil Count 6.5 X10^3/uL (2.0-7.7)
--- NOTE | 2023-06-28 16:27 | CT_ITS ---
EXAM: CT ABDOMEN AND PELVIS WITHOUT INTRAVENOUS CONTRAST CLINICAL INDICATION: fall, bruising to right flank TECHNIQUE: Helically acquired images were obtained of the abdomen and pelvis without intravenous contrast. This CT exam was performed using one or more of the following dose reduction techniques: automated exposure control, adjustment of the mA and/or kV according to patient size, and/or use of iterative reconstruction technique. RADIATION DOSE: CTDIvol = 24.15 mGy, DLP = 1369.67 mGy-cm COMPARISON: No relevant prior studies available. FINDINGS: LIMITATIONS: Exam is limited by improper positioning of patient''s arms resulting in significant streak artifact. LOWER THORAX: Small bilateral pleural effusions. No cardiomegaly. ABDOMEN: LIVER: Unremarkable. Homogeneous. GALLBLADDER AND BILE DUCTS: Cholecystectomy. No intra- or extrahepatic biliary ductal dilation. PANCREAS: Unremarkable. No focal cystic mass. SPLEEN: Unremarkable. Normal size without focal cystic or solid mass. ADRENALS: Unremarkable. No nodules. KIDNEYS AND URETERS: Bilateral severe renal atrophy. Right kidney measures 8.5 cm length. Left kidney measures 8 cm length. Bilateral cortical thinning seen. No hydronephrosis. STOMACH AND BOWEL: Evaluation of the GI tract is limited by absence of oral contrast. Cannot exclude stomach wall thickening. No dilated loops of bowel or evidence for obstruction. Cannot exclude segmental thickening of the moyer of the small or large bowel. Cannot exclude enteritis or colitis. Moderate diffuse fecal retention. Appendix within normal limits. PELVIS: APPENDIX: No evidence of acute appendicitis. BLADDER: Unremarkable. REPRODUCTIVE: Moderate prostate enlargement. ABDOMEN and PELVIS: INTRAPERITONEAL SPACE: Unremarkable. No ascites or other fluid collection. No free air. BONES/JOINTS: Degenerative changes throughout the bones. No suspicious lytic or blastic abnormality. SOFT TISSUES: Unremarkable. No discrete abdominal or pelvic wall hernia. VASCULATURE: Tortuous calcified aorta and iliac arteries with no aneurysm. Prominent calcified aortic branches. LYMPH NODES: Unremarkable. No enlarged lymph nodes. CT/Abdomen/Pelvis without Cont IMPRESSION: 1. Limited as above. 2. Severe chronic renal atrophy. 3. Prominent calcified vascular disease. 4. Bilateral small pleural effusions. Electronically Signed: Adolfo Galeana MD at 17:13 EDT ,
--- NOTE | 2023-06-28 16:27 | CT_ITS ---
STUDY: CT BRAIN WITHOUT CONTRAST REASON FOR EXAM: Male, 82 years old. fall, confusion RADIATION DOSAGE (If Supplied By Facility): CTDIvol = ( 44.99 ) mGy, DLP = ( 880.47 ) mGycm TECHNIQUE: Transaxial CT imaging of the brain was performed without administration of intravenous contrast material. Individualized dose optimization techniques were used for this CT. COMPARISON: No relevant priors. FINDINGS: Normal soft tissue structures. Normal calvarium. There is mild cerebral atrophy with widening of the extra-axial spaces and ventricular dilatation. There are areas of decreased attenuation within the white matter tracts of the supratentorial brain, consistent with microvascular disease changes. There are small punctate calcifications of the basal ganglia which are seen in the aging brain as a normal variant. Normal brainstem. There is mild cerebellar atrophy. There is no intracranial hemorrhage. There are no findings of an acute ischemic infarction. Normal visualized paranasal sinuses. CT/Brain/Head without Contrast IMPRESSION: Chronic involutional changes of the brain. No acute abnormality. Electronically Signed: Adolfo Galeana MD at 17:15 EDT ,
[2023-06-28 16:50] LABS: Bacteria 0 SEEN /hpf (None Seen); Mucous, Urine 0 SEEN /hpf (<or=2+); Squamous Epithelial Cells - UA 0 SEEN /hpf (0-5)
[2023-06-28 16:55] LABS: Color, Urine Yellow (Yellow); Glucose, Dipstick 100 mg/dl (Normal); Ketone-Dipstick 5 mg/dl (Negative); Leukocyte Esterase-Dipstick 100 /ul (Negative); Nitrite-Dipstick Negative (Negative); Occult Blood-Urine 250 /ul (Negative); Protein-Dipstick 100 mg/dl (Negative); Urine Bilirubin Dipstick Negative (Negative); Urine Clarity Clear (Clear); Urine Urobilinogen Normal (Normal)
[2023-06-28 17:19] LABS: Red Blood Cells-Urine 10-25 SEEN /hpf (0-5); White Blood Cells 0-5 SEEN /hpf (0-5)
--- NOTE | 2023-06-28 18:30 | ED.RN ---
THIS RN AT BEDSIDE FOR CUSTOMER SERVICE ASSESSMENT. UPON ENTERING THE ROOM PT LAYING ON BACK SCRATCHING AT HIS RIGHT ARM. BLOOD NOTED ON PT ARM AND THE SHEET. PT D/C HIS OWN BP CUFF, IV, AND PULSE OX. PT STATES, I AM READY TO LEAVE, AND WANTS TO GO HOME. I AM COLD. THIS RN CLEANED PT WITH WARM WIPES, CLEANED BLOOD OF OF RETAIL LOAN ORIGINATOR, PULSE OX. PT PLACED BACK ONTO BP CUFF AND PULSE OX` AND COVERED WITH WARM BLANKETS.
[2023-06-28 19:20] LABS: Blood Gas Specimen Type VEN; O2 Delivery Device Cannula; SITE Not entered; VBG BASE EXCESS 1 mmol/L (-1.0-3.5); VBG Bicarbonate 27 mmol/L (22-26); VBG PO2 36 mmHg (25-40); VBG SO2 64 % (50-70); VBG TCO2 29 mmol/L (23-33); VBG pCO2 50.8 mmHg (41-51); VBG pH 7.33 (7.32-7.42)
[2023-06-28 22:20] LABS: HIV - WCH Non-Reactive (Nonreactive); Syphilis Antibodies Non-reactive
[2023-06-30 15:29] LABS: Pathologist Review Reviewed
== END 2023-06-28 21:08 | disposition home or self-care (01) ==
PROVIDERS: Emergency Medicine; Emergency Provider Emergency Medicine; PCP Family Medicine; Visit Provider Emergency Medicine
DX: R53.1 Weakness (principal); Z99.2 Dependence on renal dialysis; J44.9 Chronic obstructive pulmonary disease, unspecified; N18.6 End stage renal disease; R29.6 Repeated falls; R41.0 Disorientation, unspecified; I25.10 Atherosclerotic heart disease of native coronary artery without angina pectoris; B15.9 Hepatitis A without hepatic coma; B19.10 Unspecified viral hepatitis B without hepatic coma; E78.5 Hyperlipidemia, unspecified; Z79.899 Other long term (current) drug therapy; Z99.81 Dependence on supplemental oxygen
CPT/HCPCS: 51702; 70450; 71045; 74176; 80053; 81001; 82140; 82803; 83605; 84484; 85025; 86703; 86780; 87040; 87631; 93005; 99285; A4216